=== PATIENT | female | born 1960 | race African-American/Black ===

== ENCOUNTER 2017-02-21 11:52 | Inpatient (IN) ==
[2017-02-21 13:44] LABS: Basophils % 0.1 % (0.0-0.8); Eosinophils % 0.4 % (0.00-10.9); Hematocrit 18.4 VOL% (35.7-47.0); Hemoglobin 6.6 GM/DL (12.0-16.0); Immature Granulocytes % 0.9 %; Immature Granulocytes Absolute 0.07 #; Lymphocytes # 1.5 10*3/uL (1.4-4.0); Lymphocytes % 19.4 % (21.3-54.2); Mean Corpuscular HGB Conc 35.9 GM/DL (32-36); Mean Corpuscular Hemoglobin 46 PG (27-34); Mean Corpuscular Volume 126.9 FL (87-102); Monocytes # 0.3 10*3/uL (0.11-0.8); Monocytes % 4.5 % (1.7-12.7); Neutrophils # 5.7 10*3/uL (1.4-7.4); Neutrophils % 74.7 % (38.7-73.9); Platelet Count 279 T/CUMM (130-400); Red Blood Count 1.45 MC/CUMM (3.8-5.5); Red Cell Distribution Width 14.4 % (9.3-17.3); White Blood Count 7.6 T/CUMM (4-12)
--- NOTE | 2017-02-21 13:47 | EKG Report ---
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
[2017-02-21 13:53] LABS: Alanine Aminotransferase 16 U/L (13-56); Albumin 3.8 G/DL (3.4-5.0); Alkaline Phosphatase 80 U/L (45-117); Aspartate Amino Transferase 12 U/L (0-37); Bilirubin,Total < 0.39 MG/DL (0.2-1.0); Blood Urea Nitrogen 18 MG/DL (7-18); Calcium 8.6 MG/DL (8.5-10.1); Glucose 102 MG/DL (74-106); Osmolality,Calculated 280.4 MOS/KG (273-304); Potassium 4.2 MMOL/L (3.5-5.1); Sodium 140 MMOL/L (136-145); Total Protein 7.4 G/DL (6.4-8.3)
[2017-02-21] MEDS ORDERED: SODIUM CHLORIDE 0.9% 250 ML IV PRN ×3 (13:57→23:40)
--- NOTE | 2017-02-21 13:58 | XRay Report ---
XR chest 1V portable Indication: Shortness of breath Comparison: Chest x-ray dated July 19, 2016 Technique: Single frontal view of the chest. Findings: Continued cardiomegaly. Chronic change of the lungs without focal consolidation, pleural effusion, or pneumothorax. Visualized osseous and surrounding soft tissue structures appear grossly unchanged. IMPRESSION: Continued cardiomegaly without hui pulmonary edema. PROCEDURE INTERPRETED AT [facility] DEPARTMENT OF RADIOLOGY Final Report Signed by: Dr Augustine Madrigal
--- NOTE | 2017-02-21 14:09 | Ultrasound Report ---
US venous doppler LE LT Indication: Left lower extremity pain and swelling. Comparison: None. Technique: Using transcutaneous probe, color Doppler, spectral Doppler, and grayscale images prior to and following compression were obtained of the left lower extremity. Ultrasound images were captured and stored. Interrogated venous structures include the left common femoral vein, superficial femoral vein (proximal, mid, and distal), and popliteal vein. Findings: Thrombus is demonstrated within the proximal superficial femoral vein. This thrombus propagates caudally into the popliteal vein. Within the superficial femoral vein, this is to been occluding thrombus. Nonoccluding thrombus is present within the proximal popliteal vein. Color flow as well as spectral flow are present within the interrogated venous segments. Impression: 1. Occluding thrombus is noted throughout the right superficial femoral vein with nonocclusive thrombus noted within the proximal popliteal vein. Critical results were communicated to Dr. Land at 1400 hours, date of exam. 02/21/2017 2:05 PM PROCEDURE INTERPRETED AT [facility] DEPARTMENT OF RADIOLOGY Final Report Signed by: Dr. Carson Sterling
--- NOTE | 2017-02-21 14:12 | Emergency Department Note ---
Mike Al Hilary, am scribing for, and in the presence of, Alli Land MD 13:32. Emery Al Phillip K, MD, personally performed the services described in this documentation, ascribed by Barbra Mckeon in my presence, and it is both accurate and complete 412 . Arrival - Arrival Chief Complaint: Non-Specific Stated Complaint: sent by [facility] about lab results ED Nursing Triage Note: PT WAS CALLED AT HOME BY [facility] IN [place] TO BE EVALUATED FOR "LOW BLOOD COUNTS." PT C/O WEAKNESS TO LEGS. PT STATES STOOL IS DARK BUT HAS NOT NOTICED BLOOD IN STOOL. Mode of Arrival: Ambulatory Limitations: No Limitations Source: Patient, RN Notes Reviewed - History of Present Illness HPI Narrative: Pt is a 56 y/o female presenting to the ED with c/o weakness in her legs which onset a few days ago. Pt was called at home by arthritis clinic in [place] to be evaluated for "low blood counts". Pt states she has been anemic before and received blood in Jun 2016. She confirms weakness, black stool, SOB, abdominal pain (left side), but denies chest pain or fever. Pt has a PMHx of HTN , Seizures, Rheumatoid arthritis, thyroid disorder. No other complaints or problems stated in the ED. She also notes left leg feels like something is "running around in her leg". Onset (ago): day(s) Consistency: constant Severity: mild Severity scale (1-10): 1 Allergies/Adverse Reactions: Allergies Allergy/AdvReac Type Severity Reaction Status Date / Time Penicillins Allergy Intermediate RASH Verified 02/21/17 12:00 Home Medications: Home Medications Medication Instructions Recorded Confirmed Type Aspirin [Ecotrin] 81 mg PO DAILY 07/09/16 07/18/16 History Brexpiprazole [Rexulti] 1 mg PO DAILY 07/09/16 07/18/16 History Escitalopram [Lexapro] 20 mg PO DAILY 07/09/16 07/18/16 History NIFEdipine XL TAB [Procardia Xl] 60 mg PO DAILY 07/09/16 07/18/16 History Potassium Chloride [Klor-Con 10] 10 meq PO DAILY 07/09/16 07/18/16 History Topiramate 100 mg DAILY 07/09/16 07/18/16 History carBAMazepine [Carbatrol] 200 mg PO BID 07/09/16 07/18/16 History traZODone [Desyrel] 50 mg PO BEDTIME 07/09/16 07/18/16 History Albuterol Inhaler [Proventil 2 puff INH Q4H PRN #1 inhaler 07/18/16 Rx Inhaler] Levofloxacin Tab [Levaquin Tab] 750 mg PO DAILY #5 tablet 07/18/16 Rx Review of System - Review of System 12 point system: reviewed and no additional remarkable complaints except as stated - Review of System Constitutional: Present: weakness. Absent: fever Respiratory: Present: respiratory distress Cardiovascular: Absent: chest pain Gastrointestinal: Present: abdominal pain, melena Musculoskeletal: Present: leg pain (left leg) Neurological: Present: weakness Medical,Surgical,& Family Hx - Medical History Cardio: History of: Hypertension Psychological: History of: Anxiety Disorders Neurology: History of: Seizures Endocrine: History of: Thyroid Disorder Rheumatology: History of;: Rheumatoid Arthritis - Family History Family History: Reports;: Family Hypertension, Family Stroke - Social History Smoking Status: Never smoker Frequency of Alcohol Use: None Type of Drug Use: None Exam Vital Signs: Vital Signs Temperature 98.0 F 02/21/17 13:24 Pulse Rate 80 02/21/17 13:24 Respiratory Rate 20 02/21/17 13:24 Blood Pressure 183/110 02/21/17 13:24 O2 Sat by Pulse Oximetry 100 02/21/17 13:19 - General General appearance: alert, in no apparent distress - Head Head exam: Present: atraumatic, normocephalic - Eye Eye exam: Present: normal appearance, PERRL, EOMI - ENT ENT exam: Present: mucous membranes moist, TM's normal bilaterally. Absent: mucous membranes dry - Neck Neck exam: Present: full ROM, trachea midline. Absent: tenderness - Chest Chest inspection: Present: symmetric chest wall rise. Absent: tenderness - Respiratory Respiratory exam: Present: normal lung sounds bilaterally. Absent: respiratory distress - Cardiovascular Cardiovascular exam: Present: regular rate, normal rhythm, normal heart sounds. Absent: murmur, rubs, gallop - Abdominal Exam Abdominal exam: Present: soft, tenderness (generalized to direct palpation), normal bowel sounds. Absent: distention - Rectal Exam Rectal exam: Present: heme (+) stool (Slight) - Extremities Exam Extremities exam: Present: full ROM. Absent: tenderness (left leg is sore), pedal edema - Back Exam Back exam: Present: full ROM. Absent: tenderness - Neurological Exam Neurological exam: Present: alert, oriented X3, CN II-XII intact. Absent: motor sensory deficit - Psychiatric Psychiatric exam: Present: normal affect, normal mood - Skin Skin exam: Present: warm, dry, intact, normal color. Absent: rash Results - Labs CBC & BMP: 02/21/17 13:07 02/21/17 13:07 Lab Results: I have reviewed the patients labs Labs: Laboratory Tests 02/21/17 02/21/17 13:07 13:07 WBC 7.6 RBC 1.45 L Hgb 6.6 L Hct 18.4 L MCV 126.9 H MCH 46 H Plt Count 279 Neut % (Auto) 74.7 H Lymph % (Auto) 19.4 L Sodium 140 Potassium 4.2 Chloride 109 H Carbon Dioxide 25 Creatinine 1.70 H Total Protein 7.4 Globulin 3.6 H Albumin/Globulin Ratio 1.0 L - EKG EKG results: interpreted by [facility], sinus rhythm (Nonspecific ST-T changes) - Diagnostic Findings Procedure: Chest x-ray: report reviewed by me (Continued cardiomegaly without hui pulmonary edema. ), Ultrasound: report reviewed by me (Left leg DVT from the superficial femoral down to the popliteal.) Disposition Clinical Impression: Anemia, Heme positive stool, Left leg DVT, Chronic renal failure Case discussed with: patient Disposition: Still a Patient Condition: Guarded Additional Instructions: Admit to the hospitalist.
[2017-02-21 14:57] LABS: Giant Platelets Few; Hypochromasia 1+; Ovalocytes Slight; Platelet Estimate Adequate
--- NOTE | 2017-02-21 17:04 | Hospitalist History & Physical ---
<Yung Mohan - Last Filed: 02/21/17 17:06> Assessment and Plan - Time spent with patient Time spent with patient: Greater than 30 minutes (1) Anemia Status: Acute Assessment and plan: H&H 6 and 18. Patient has been transfused with unit of packed red blood cells in the ER. We will continue this on the floor. We will consult GI for evaluation. Current Visit: Yes (2) Deep vein thrombosis (DVT) of left lower extremity Status: Acute Assessment and plan: Venous Doppler of the left lower extremity shows DVT. Patient is not on any anticoagulation. We will check a VQ scan to evaluate for pulmonary embolism. We will hold off on anticoagulation until after GI has seen the patient. Current Visit: Yes (3) Occult blood in stools Status: Acute Current Visit: Yes (4) Partial epilepsy Status: Acute Assessment and plan: Continue home medications. Current Visit: No (5) HTN (hypertension) Status: Chronic Assessment and plan: Continue home medications. Current Visit: No History of Present Illness Chief complaint: Anemia, GI bleed, DVT History of present illness: Ms. Wyatt is a 56 year old female with a past medical history significant for seizures and hypertension who is seen in the emergency department today with complaints of anemia and DVT having onset 2 weeks ago. Patient was she was seen by her primary care doctor, Dr. Dye, found the patient to be anemic during her last office visit. Patient was told to report to the emergency room as soon as possible on Tuesday, however the patient was out of town at a time and she came in today. The patient reports that she had been experiencing these "knots" in her left calf that were sometimes moving. She tells me that she has been taking a lot of Aleve for the arthritis pain and aspirin for the past few weeks. On admission, the patient was found to be heme occult positive and severely anemic with an H&H of 6 and 18. She confirms headache, lower extremity pain, arthritic pain. She denies blurry vision, chest pain, shortness of breath, nausea vomiting, numbness or tingling. Venous Doppler at the time of admission does confirm a DVT in the left lower extremity. Patient has been transfused with unit of packed red blood cells in the ED. Case been discussed with Dr. Alfred, and the patient will be admitted to the hospital medicine service for further evaluation and treatment. Patient is a full code. Home meds have been reviewed and reconciled. Home Medications Medication Instructions Recorded Confirmed Type Aspirin [Ecotrin] 81 mg PO DAILY 07/09/16 02/21/17 History Brexpiprazole [Rexulti] 1 mg PO DAILY 07/09/16 02/21/17 History Escitalopram [Lexapro] 20 mg PO DAILY 07/09/16 02/21/17 History NIFEdipine XL TAB [Procardia Xl] 60 mg PO DAILY 07/09/16 02/21/17 History Potassium Chloride [Klor-Con 10] 10 meq PO DAILY 07/09/16 02/21/17 History Topiramate 100 mg DAILY 07/09/16 02/21/17 History carBAMazepine [Carbatrol] 200 mg PO BID 07/09/16 02/21/17 History traZODone [Desyrel] 50 mg PO BEDTIME 07/09/16 02/21/17 History Albuterol Inhaler [Proventil 2 puff INH Q4H PRN #1 inhaler 07/18/16 02/21/17 Rx Inhaler] Atorvastatin [Lipitor] 10 mg PO BEDTIME 02/21/17 02/21/17 History Lisinopril 40 mg PO DAILY 02/21/17 02/21/17 History Tizanidine HCl [Tizanidine HCl] 4 mg PO Q8H PRN 02/21/17 02/21/17 History Tramadol HCl [Tramadol Tab] 50 mg PO Q6H PRN 02/21/17 02/21/17 History Allergies Allergy/AdvReac Type Severity Reaction Status Date / Time Penicillins Allergy Intermediate RASH Verified 02/21/17 12:00 Medical,Surgical,& Family Hx - Medical History Cardio: History of: Hypertension Psychological: History of: Anxiety Disorders Neurology: History of: Seizures Endocrine: History of: Thyroid Disorder Rheumatology: History of;: Rheumatoid Arthritis - Family History Family History: Reports;: Family Diabetes, Family Hypertension, Family Stroke - Social History Smoking Status: Never smoker Frequency of Alcohol Use: None Type of Drug Use: None Marital Status: Single Lives With:: Alone Functional capacity: independent ambulation 12 point system: reviewed and no additional remarkable complaints except as stated Exam - Constitutional Vitals: Period Temp Pulse Resp BP Sys/Cabrera Pulse Ox Last 24 Hr 97.3 F-98.4 F 63-80 14-20 135-183/63-110 98-100 Exam: General appearance: Obese, no acute distress - Head Head exam: Present: normocephalic, atraumatic - Eye Eye exam: Present: EOMI. Absent: conjunctival injection, nystagmus Pupils: Present: NGA, normal accommodation - ENT ENT exam: Present: normal exam, normal external ear exam - Neck Neck exam: Present: normal inspection. Absent: lymphadenopathy, tenderness, thyromegaly - Respiratory Respiratory exam: Present: clear to auscultation bilaterally. Absent: rales, rhonchi, wheezes - Cardiovascular Cardiovascular exam: Present: regular rate and rhythm. Absent: carotid bruit, gallop, rubs - GI/Abdominal GI/Abdominal exam: Present: normal bowel sounds. Absent: ascites, distended, mass - Extremities Exam Extremities exam: Present: normal inspection, normal capillary refill. Absent: edema - Back Exam Back exam: Absent: CVA tenderness (L), CVA tenderness (R) - Neurological Exam Neurological exam: Present: alert, oriented X3, CN II-XII intact, reflexes normal - Psychiatric Psychiatric exam: Present: normal affect, normal mood - Skin Skin exam: Present: normal color, warm, dry Results - Labs CBC & BMP: 02/21/17 13:07 02/21/17 13:07 Lab Results: I have reviewed the past 24 hour labs <Adwoa Alfred - Last Filed: 02/22/17 16:52> Assessment and Plan (1) Deep vein thrombosis (DVT) of left lower extremity Status: Acute Current Visit: Yes (2) Acute blood loss anemia Status: Acute Current Visit: Yes (3) HTN (hypertension) Status: Chronic Current Visit: No (4) Partial epilepsy Status: Acute Current Visit: No (5) Chronic renal failure Status: Acute Current Visit: Yes History of Present Illness History of present illness: Ms. Wyatt is a 56 year old female with LE DVT and LGI bleed. 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 Exam - Constitutional Vitals: Period Temp Pulse Resp BP Sys/Cabrrea Pulse Ox Last 24 Hr 97.1 F-98.4 F 59-91 16-22 131-190/66-87 92-100 Results - Labs CBC & BMP: 02/22/17 08:19 02/22/17 08:19
[2017-02-21] MEDS ORDERED: ONDANSETRON 4 MG/2 ML VIAL IV PRN (18:27)
[2017-02-21] MEDS ORDERED: tiZANidine 4 MG TABLET PO PRN (18:27)
[2017-02-21] MEDS ORDERED: traMADol 50 MG TABLET PO PRN (18:27)
[2017-02-21] MEDS ORDERED: MORPHINE 2 MG/1 ML SYRINGE IV PRN (18:27)
[2017-02-21] MEDS ORDERED: ALBUTEROL 2.5 MG/3 ML NEB RESP TX PRN (19:00)
--- NOTE | 2017-02-21 19:08 | Gastrointestinal Consult Note ---
Assessment and Plan (1) Occult blood in stools Status: Acute Assessment and plan: Severe anemia of unclear etiology with occult positive stools history of nonsteroidal use but no upper tract referrable symptoms. Will proceed with EGD to further evaluate for possible peptic ulcer disease. Go ahead and continue with IV PPI treatments. If EGD is negative will need to consider colonoscopy as well she is due for colonoscopy for screening purposes. Risks, benefits and alternatives of EGD and endoscopy were reviewed she is agreeable to proceed in a.m. Current Visit: Yes (2) Deep vein thrombosis (DVT) of left lower extremity Status: Acute Assessment and plan: Discussed with patient's attending physician problematic situation will defer to primary care team to consider the possibility of vena caval filter given her severe anemia occult positive stools. Bedrest and subcutaneous heparin probably the best choice for this evening but even if EGD is negative tomorrow she will be at high risk for colon prep with increased risk of clot dislodgment. The possibility of hypercoagulable state from underlying malignancy will also need to be excluded. Current Visit: Yes History of Present Illness Chief complaint: Weakness History of present illness: Ms. Wyatt is a 56 year old female Admitted with severe anemia she reports generalized weakness and fatigue been going on now for several weeks. 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 She was out of town in [facility]. She presented to the emergency room today where she was noted to be anemic. She also complained of some left leg pain which she has been reportedly complaining about for several weeks was found to have a DVT. She is admitted now we have been consulted for further evaluation of GI bleeding found with occult positive stools. She does take frequent nonsteroidals but she has no dyspeptic or dysphagic symptoms. She has had no weight loss. She has never had a colon looked at. She never has had any prior history of peptic ulcer disease. Home Medications Medication Instructions Recorded Confirmed Type Aspirin [Ecotrin] 81 mg PO DAILY 07/09/16 02/21/17 History Brexpiprazole [Rexulti] 1 mg PO DAILY 07/09/16 02/21/17 History Escitalopram [Lexapro] 20 mg PO DAILY 07/09/16 02/21/17 History NIFEdipine XL TAB [Procardia Xl] 60 mg PO DAILY 07/09/16 02/21/17 History Potassium Chloride [Klor-Con 10] 10 meq PO DAILY 07/09/16 02/21/17 History Topiramate 100 mg DAILY 07/09/16 02/21/17 History carBAMazepine [Carbatrol] 200 mg PO BID 07/09/16 02/21/17 History traZODone [Desyrel] 50 mg PO BEDTIME 07/09/16 02/21/17 History Albuterol Inhaler [Proventil 2 puff INH Q4H PRN #1 inhaler 07/18/16 02/21/17 Rx Inhaler] Atorvastatin [Lipitor] 10 mg PO BEDTIME 02/21/17 02/21/17 History Lisinopril 40 mg PO DAILY 02/21/17 02/21/17 History Tizanidine HCl [Tizanidine HCl] 4 mg PO Q8H PRN 02/21/17 02/21/17 History Tramadol HCl [Tramadol Tab] 50 mg PO Q6H PRN 02/21/17 02/21/17 History Allergies Allergy/AdvReac Type Severity Reaction Status Date / Time Penicillins Allergy Intermediate RASH Verified 02/21/17 12:00 Medical,Surgical,& Family Hx - Medical History Cardio: History of: Hypertension No history of: Aneurysm, Cardiac Dysrhythmia, Cerebrovascular Disease, Congenital Heart Disease, CHF, CAD, RI, Pacemaker, PVD, Valvular Heart Disease, Cardiovascular Problems Psychological: History of: Anxiety Disorders Neurology: History of: Seizures No history of: Brain Aneurysm, Cerebral Hemorrhage, Cerebrovascular Accident , Cerebral Palsy, Dementia, Migraine, Multiple Sclerosis, Parkinson's Disease, Peripheral Neuropathy, TIA, Vertigo, Neurologocal Cancer HEENT: History of: Ear Problem ("cant hear good"), Eye Problem ("difficulty seeing") Endocrine: History of: Thyroid Disorder No history of: Dyslipidemia Rheumatology: History of;: Rheumatoid Arthritis Respiratory: No history of: Asthma, Bronchitis, COPD, Intubation, Obstructive Sleep Apnea , Pulmonary Embolism, Pulmonary Hypertension, Pneumonia, Lung Cancer, Respiratory Problems Hematology: History of: Anemia, Clotting Problems No history of: Bleeding Problems, Sickle Cell Disease, Hematologic Cancer, Blood Disorders - Surgical History Cardiac Surgeries: Patient Denies: Femoral-Popliteal Bypass Graft, Cardiac Catheterization, Cardiac Surgery, Carotid Endarterectomy, Internal Defibrillator, Vascular Access Devices Thoracic Surgeries: Patient denies;: Organ Transplant, Lobectomy Neurologic Surgeries: Patient denies: Brain Aneurysm, Cerebral Hemorrhage, Neurologic Surgery HEENT Surgeries: Patient denies: Carotid Endarterectomy, Eye Surgery, Thyroid Surgery, Tonsilectomy & Adenoidectomy Abdominal Surgeries: Patient denies: Abdominal Surgery, Splenectomy Reproductive Surgeries: Surgical HX of;: Tubal Ligation - Family History Family History: Reports;: Family Diabetes, Family Hypertension, Family Stroke - Social History Smoking Status: Never smoker Frequency of Alcohol Use: None Type of Drug Use: None - Constitutional Constitutional: Present: fatigue. Absent: anorexia, chills, fever(s), frequent falls - EENT Ears: Absent: decreased hearing Nose, mouth and throat: Absent: dysphagia, epistaxis, headache(s) - Cardiovascular Cardiovascular: Absent: chest pain at rest, chest pain with activity, edema - Respiratory Respiratory: Present: dyspnea, dyspnea on exertion. Absent: cough, hemoptysis - Gastrointestinal Gastrointestinal: Present: nausea. Absent: abdominal pain, bloating, change in bowel habits, heartburn, hematemesis, hematochezia, melena, vomiting - Genitourinary Genitourinary: Absent: flank pain, hematuria - Neurological Neurological: Absent: abnormal gait, abnormal speech, behavioral changes - Endocrine Endocrine: Present: fatigue. Absent: polydipsia, polyphagia - Hematologic/Lymphatic Hematologic/Lymphatic: Absent: easy bleeding, easy bruising, lymphadenopathy Exam - Constitutional Vitals: Period Temp Pulse Resp BP Sys/Cabrera Pulse Ox Last 24 Hr 97.3 F-99.3 F 63-82 14-20 135-183/63-110 98-100 General appearance: no acute distress, over weight - Head Head exam: Present: normal inspection, normocephalic, atraumatic - Eye Eye exam: Present: EOMI. Absent: conjunctival injection, scleral icterus Pupils: Present: NGA. Absent: dilated - ENT ENT exam: Present: normal oropharynx - Neck Neck exam: Present: normal inspection. Absent: lymphadenopathy, thyromegaly - Respiratory Respiratory exam: Present: clear to auscultation bilaterally. Absent: accessory muscle use, rales - Cardiovascular Cardiovascular exam: Present: regular rate and rhythm. Absent: systolic murmur - GI/Abdominal GI/Abdominal exam: Present: soft. Absent: ascites, distended, organomegaly, tenderness, rebound - Extremities Exam Extremities exam: Absent: edema - Neurological Exam Neurological exam: Present: alert, oriented X3 - Psychiatric Psychiatric exam: Present: normal affect, normal mood - Skin Skin exam: Present: warm Results - Labs CBC & BMP: 02/21/17 13:07 02/21/17 13:07 Lab Results: I have reviewed the past 24 hour labs Quality Measures - VTE Contraindication to Pharmacological VTE Prophylaxis: Active Bleeding
[2017-02-21] MEDS ORDERED: ENOXAPARIN 100 MG/ML SYRINGE SUBCUT ONE (20:00)
[2017-02-21 21:24] LABS: Risk Ratio 3.17; VLDL CHOLESTEROL 29.6 MG/DL
[2017-02-21] MEDS: traZODone 50 MG TABLET PO SCH (21:24)
[2017-02-21] MEDS: carBAMazepine 200 MG TABLET PO SCH (21:24)
[2017-02-21] MEDS: ATORVASTATIN 10 MG TABLET PO SCH (21:24)
[2017-02-21] MEDS: PANTOPRAZOLE 40 MG VIAL IV SCH (21:24)
[2017-02-21] MEDS: SODIUM CHLORIDE 0.9% 1,000 ML IV SCH (22:08)
[2017-02-21 23:34] LABS: Hematocrit 23.4 VOL% (35.7-47.0)
[2017-02-21 23:37] LABS: Hemoglobin 8.4 GM/DL (12.0-16.0)
[2017-02-22 00:10] LABS: Apearance,Urine CLEAR (Clear); Bacteria,Urine Many /HPF (Few); Bilirubin,Urine Negative (Negative); Blood, Urine Negative (Negative); Glucose,Urine (UA) Negative (Negative); Ketones,Urine Negative (Negative); Nitrite,Urine Negative (Negative); Protein,Urine Negative; RBC,Urine 1 /HPF (0-4); Renal Epithelial Cells,Urine Occasional /HPF (<1); Squamous Epithelial Cell,Urine Occasional /HPF (0-10); Urine Color Yellow (Yellow); Urine Specific Gravity 1.009 (1.001-1.035); Urine Urobilinogen < 2.0 EU/DL (0.2-1.0); WBC,Urine 4 /HPF (0-6)
[2017-02-22] MEDS: SODIUM CHLORIDE 0.9% 1,000 ML IV SCH ×2 (01:10→11:26)
[2017-02-22 08:28] LABS: Basophils % 0.1 % (0.0-0.8); Eosinophils % 0.4 % (0.00-10.9); Hematocrit 32.1 VOL% (35.7-47.0); Hemoglobin 11.7 GM/DL (12.0-16.0); Immature Granulocytes % 0.6 %; Immature Granulocytes Absolute 0.05 #; Lymphocytes # 1.5 10*3/uL (1.4-4.0); Lymphocytes % 17.7 % (21.3-54.2); Mean Corpuscular HGB Conc 36.4 GM/DL (32-36); Mean Corpuscular Hemoglobin 37 PG (27-34); Mean Corpuscular Volume 100.6 FL (87-102); Mean Platelet Volume 10.6 FL (9.6-12.0); Monocytes # 0.3 10*3/uL (0.11-0.8); Monocytes % 4.1 % (1.7-12.7); Neutrophils # 6.4 10*3/uL (1.4-7.4); Neutrophils % 77.1 % (38.7-73.9); Platelet Count 241 T/CUMM (130-400); Red Blood Count 3.19 MC/CUMM (3.8-5.5); White Blood Count 8.3 T/CUMM (4-12)
[2017-02-22 08:29] LABS: Hematocrit 32.5 VOL% (35.7-47.0); Hemoglobin 11.7 GM/DL (12.0-16.0)
[2017-02-22 08:40] LABS: PT Patient Result 10.7 SECS
[2017-02-22 09:04] LABS: Albumin 3.8 G/DL (3.4-5.0); Bilirubin,Total 0.6 MG/DL (0.2-1.0); Calcium 8.9 MG/DL (8.5-10.1); Osmolality,Calculated 282.1 MOS/KG (273-304); Potassium 4.6 MMOL/L (3.5-5.1); Total Protein 7.3 G/DL (6.4-8.3)
--- NOTE | 2017-02-22 09:26 | Nuclear Medicine Report ---
Lung ventilation and perfusion imaging. Indication: DVT. Following the aerosolized administration of 40 mCi technetium 99m DTPA, imaging was performed over the lung sawyer in the anterior, CYMRAES and PIZANO positions. Following the intravenous administration of 5 mCi technetium 99m MAA, imaging was performed over the lung sawyer and the same standard images. There are no ventilation or perfusion defects seen. Impression: Normal study. PROCEDURE INTERPRETED AT [facility] DEPARTMENT OF RADIOLOGY Final Report Signed by: Dr. Frannie Shepherd
[2017-02-22 09:56] LABS: Macrocytosis 2+; Polychromasia Slight
[2017-02-22 09:57] LABS: Hypochromasia 1+; Target Cells Slight
[2017-02-22] MEDS ORDERED: DIAZEPAM 5 MG TABLET PO ONE (10:34)
--- NOTE | 2017-02-22 10:34 | IR History and Physical Update ---
IR Pre-Procedure - History and Physical H&P was reviewed, the patient examined and there: are no changes in the patients condition since last H&P was completed. Reason for procedure:: 56 yo F w/ LLE DVT. Anticoagulation contraindicated by seizure disorder, heme positive stools and anemia of unknown etiology. Needs IVC filter, likely for life. - Dictation Physical: refer to H&P completed by admitting physician - Physical Exam Vital Signs: Last Vital Signs Temp 97.3 F L 02/22/17 08:23 Pulse 67 02/22/17 08:26 Resp 20 02/22/17 09:50 BP 157/83 02/22/17 08:23 Pulse Ox 98 02/22/17 08:23 Mental Status: alert and oriented - Sedation IR anesthesia plan for sedation: minimal ASA Class: II - Risks Risks: Procedures explained. Risks discussed include, but not limited to, the following:[ permanent IVC filter, IVC thrombosis extending into legs] All questions answered. The following alternatives were discussed:[ none] Risks and benefits discussed with: patient Consent obtained from: patient Assessment and Plan - Time spent with patient Time spent with patient: Less than 30 minutes (1) Deep vein thrombosis (DVT) of left lower extremity Status: Acute Assessment and plan: A: DVT, contraindication to anticoag P: IVC filter placement, probably for life Current Visit: Yes
--- NOTE | 2017-02-22 10:51 | Hospitalist Progress Note ---
Assessment and Plan (1) Deep vein thrombosis (DVT) of left lower extremity Status: Acute Assessment and plan: VQ scan- normal study.She is for IVC filter placement due to contraindication to anticoagulation.Lipid panel noted. We will also get tumour markers and hypercoagulability study. Current Visit: Yes (2) Acute blood loss anemia Status: Acute Assessment and plan: with occult blood in stools s/p transfusion of 4units of packed cells. Plan Continue to monitor H/H and transfuse on a prn basis For EGD today, follow GI's recommendations Current Visit: Yes (3) HTN (hypertension) Status: Chronic Assessment and plan: continue with meds Current Visit: No (4) Partial epilepsy Status: Acute Assessment and plan: continue home meds, hold tramadol because this can reduce seizure threshold Current Visit: No (5) Chronic renal failure Status: Acute Assessment and plan: avoid Nephrotoxics BMP in am Current Visit: Yes Hospitalist: Subjective Interval history: Patient went for an IVC filter placement this am.She is also going for and EGD as well. She received a total of 4units of packed cells overnight. VQ scan was normal. Exam - Constitutional Vitals: Period Temp Pulse Resp BP Sys/Cabrera Pulse Ox Last 24 Hr 97.1 F-99.3 F 63-91 14-20 131-183/63-110 92-100 General appearance: no acute distress - Head Head exam: Present: normal inspection - Respiratory Respiratory exam: Present: clear to auscultation bilaterally - Cardiovascular Cardiovascular exam: Present: regular rate and rhythm - GI/Abdominal GI/Abdominal exam: Present: normal bowel sounds - Extremities Exam Extremities exam: Present: normal inspection - Neurological Exam Neurological exam: Present: alert, oriented X3 Results - Labs CBC & BMP: 02/22/17 08:19 02/22/17 08:19 Lab Results: I have reviewed the past 24 hour labs Quality Measures - VTE Contraindication to Pharmacological VTE Prophylaxis: Active Bleeding
[2017-02-22] MEDS ORDERED: SODIUM CHLORIDE 0.45% 1,000 ML IV SCH (11:00)
[2017-02-22] MEDS ORDERED: BISACODYL 5 MG TABLET PO ONE (12:00)
[2017-02-22] MEDS ORDERED: LIDOCAINE 1% 5 ML VIAL ONE (12:23)
[2017-02-22] MEDS ORDERED: PROPOFOL 200 MG/20 ML VIAL IV ONE (12:23)
--- NOTE | 2017-02-22 12:26 | History and Physical Update ---
History and Physical Update - Physical Exam Mental Status: alert and oriented Heart: regular rate and rhythm Lung: clear to auscultation Abdomen: within normal limits Vitals: within normal limits
--- NOTE | 2017-02-22 12:37 | Operative Note ---
Date of procedure: 02/22/17 Pre-op diagnosis: Severe anemia with coffee-ground emesis Procedure: EGD 56-year-old female admitted with severe anemia coffee-ground emesis occult positive stools with left leg DVT now for EGD to further evaluate. Informed symptoms obtained patient She was sedated with MAC anesthesia per anesthesia protocol. Placed left lateral decubitus position the Olympus flexible video upper endoscope was inserted in the oral cavity under direct vision the esophagus intubated. Findings: Esophagus-normal proximal mid esophageal mucosa distal esophagus with no significant hiatal hernia no stricture no esophagitis or varices identified. Stomach-normal insufflation there is a minute superficial ulcer in the antrum of the stomach no visible vessel no active bleeding. Remaining stomach is normal to direct retroflexed views of the body fundus cardia and antrum the stomach. Pylorus-normal Duodenum-normal for the bulb and duodenum to the third portion of the duodenum. The procedure terminated placed our procedure well she is discharged recovery in good condition. Postop diagnosis: 1. Superficial antral gastric ulcer-continue PPI treatment. 2. Plan colonoscopy in a.m. to evaluate her severe anemia that is unlikely related to this very small ulcer. Anesthesia: MAC Surgeon / Physician: Alexis White Estimated blood loss: none Specimens: none sent Condition: stable Disposition: post procedure unit Results - Labs CBC & BMP: 02/22/17 08:19 02/22/17 08:19 Discharge Plan - Discharge Medications No Action Albuterol Inhaler [Proventil Inhaler] 2 puff INH Q4H PRN #1 inhaler PRN Reason: Shortness Of Breath/Wheezing Atorvastatin [Lipitor] 10 mg PO BEDTIME Tramadol HCl [Tramadol Tab] 50 mg PO Q6H PRN PRN Reason: Pain Tizanidine HCl [Tizanidine HCl] 4 mg PO Q8H PRN PRN Reason: Muscle Spasm traZODone [Desyrel] 50 mg PO BEDTIME Escitalopram [Lexapro] 20 mg PO DAILY Potassium Chloride [Klor-Con 10] 10 meq PO DAILY Brexpiprazole [Rexulti] 1 mg PO DAILY Aspirin [Ecotrin] 81 mg PO DAILY NIFEdipine XL TAB [Procardia Xl] 60 mg PO DAILY Topiramate 100 mg DAILY carBAMazepine [Carbatrol] 200 mg PO BID Lisinopril 40 mg PO DAILY - Follow Up or Referral - Forms/Instructions
--- NOTE | 2017-02-22 12:52 | Anesthesia Post-Op ---
Anesthesia Post OP - Post Ansesthetic Evaluation Patient seen in post op: Yes Resp: within normal limits CV: within normal limits Mental: within normal limits Temp: within normal limits Bsyb-Pe-[id number]: within normal limits Nausea and Vomiting: within normal limits Pain: within normal limits
[2017-02-22 12:59] LABS: AFP Tumor 5.2 NG/ML (0-8); Cancer Antigen 19-9 6.2 U/ML (0-37); Carcinoembryonic Antigen < 0.5 NG/ML (0.0-5.0)
--- NOTE | 2017-02-22 14:08 | Post Interventional Procedure ---
Pre-op diagnosis: DVT Post-op diagnosis: same Procedure: IVC filter Contrast: Omni 350, 15cc Radiologist: Jose Womack Anesthesia: local Specimens: none sent Estimated blood loss: none Complications: none Condition: stable Assessment and Plan (1) Deep vein thrombosis (DVT) of left lower extremity Status: Acute Assessment and plan: A: DVT, contraindication to anticoag P: IVC filter placement, probably for life Current Visit: Yes
--- NOTE | 2017-02-22 14:22 | Interventional Radiology Rpt ---
IR IVC filter placement Indication: Left lower extremity DVT. Contraindication anticoagulation: Intractable seizures, heme positive stools and anemia. IVC FILTER PLACEMENT Description: A formal timeout was performed. Maximum sterile barrier technique was used. The right groin was prepped and draped in a sterile fashion. Sonographic evaluation demonstrates a patent and compressible right common femoral vein. 5 cc 1% lidocaine was infused subcutaneously. Under sonographic guidance, a micropuncture needle was advanced into the target vein. A captured sonographic image documents the position of the needle. The needle was exchanged over a wire for a vascular dilator with the tip in the distal IVC. An inferior venacavogram was performed. Normal anatomy was present. The lowest renal vein inflow was identified. The dilator was exchanged over a wire for a Genevieve IVC filter sheath. The filter was then advanced and deployed such that the apex is at the lowest renal vein inflow. The deployment apparatus was removed and hemostasis achieved with manual compression. Medications: None. Contrast: Omnipaque 350, 15 cc. Fluoroscopy: 0.7 minutes, 18 images stored. Impression: Infrarenal IVC filter placement as described. PROCEDURE INTERPRETED AT [facility] DEPARTMENT OF RADIOLOGY Final Report Signed by: Jose Womack M.D.
[2017-02-22] MEDS: PANTOPRAZOLE 40 MG VIAL IV SCH ×2 (15:01→21:46)
[2017-02-22] MEDS: carBAMazepine 200 MG TABLET PO SCH ×2 (15:02→20:44)
[2017-02-22] MEDS: ESCITALOPRAM 10 MG TABLET PO SCH (15:02)
[2017-02-22] MEDS ORDERED: POLYETHYLENE GLYCOL POWDER 255 GM BOTTLE PO ONE (18:00)
[2017-02-22] MEDS: traZODone 50 MG TABLET PO SCH (20:45)
[2017-02-22] MEDS: ATORVASTATIN 10 MG TABLET PO SCH (20:45)
[2017-02-23] MEDS: SODIUM CHLORIDE 0.9% 1,000 ML IV SCH ×3 (01:08→20:35)
[2017-02-23] MEDS ORDERED: MAGNESIUM CITRATE 300 ML BOTTLE PO ONE (05:11)
[2017-02-23 07:53] LABS: Hematocrit 34.2 VOL% (35.7-47.0); Hemoglobin 11.7 GM/DL (12.0-16.0)
[2017-02-23 08:04] LABS: Basophils % 0.1 % (0.0-0.8); Eosinophils % 0.3 % (0.00-10.9); Hematocrit 33.3 VOL% (35.7-47.0); Hemoglobin 11.8 GM/DL (12.0-16.0); Immature Granulocytes % 0.9 %; Immature Granulocytes Absolute 0.08 #; Lymphocytes # 1.3 10*3/uL (1.4-4.0); Lymphocytes % 13.7 % (21.3-54.2); Mean Corpuscular HGB Conc 35.4 GM/DL (32-36); Mean Corpuscular Hemoglobin 37 PG (27-34); Mean Corpuscular Volume 104.4 FL (87-102); Mean Platelet Volume 10.5 FL (9.6-12.0); Monocytes # 0.4 10*3/uL (0.11-0.8); Neutrophils # 7.6 10*3/uL (1.4-7.4); PT Patient Result 10.5 SECS; Platelet Count 244 T/CUMM (130-400); Red Blood Count 3.19 MC/CUMM (3.8-5.5); Red Cell Distribution Width 25.3 % (9.3-17.3); White Blood Count 9.3 T/CUMM (4-12)
[2017-02-23 08:17] LABS: Hypochromasia 1+; Ovalocytes Slight; Platelet Estimate Adequate
[2017-02-23 08:18] LABS: Macrocytosis Slight
[2017-02-23] MEDS ORDERED: LIDOCAINE 2% 5 ML VIAL ONE (10:51)
[2017-02-23] MEDS ORDERED: PROPOFOL 200 MG/20 ML VIAL IV ONE (10:51)
--- NOTE | 2017-02-23 11:22 | Hospitalist Progress Note ---
Assessment and Plan (1) Deep vein thrombosis (DVT) of left lower extremity Status: Acute Assessment and plan: VQ scan- normal study.She had an IVC filter placed yesterday due to contraindication to anticoagulation. Lipid panel noted. Tumour markers- noted . We will follow hypercoagulability study. Current Visit: Yes (2) Acute blood loss anemia Status: Acute Assessment and plan: with occult blood in stools s/p transfusion of 4units of packed cells.H/H is stable. EGD showed a superficial antral gastric ulcer, she is having a colonoscopy today. Plan Continue to monitor H/H and transfuse on a prn basis follow GI's recommendations PPIs Current Visit: Yes (3) HTN (hypertension) Status: Chronic Assessment and plan: continue with meds Current Visit: No (4) Partial epilepsy Status: Acute Assessment and plan: continue home meds, hold tramadol because this can reduce seizure threshold Current Visit: No (5) Chronic renal failure Status: Acute Assessment and plan: avoid Nephrotoxics BMP in am Current Visit: Yes Hospitalist: Subjective Interval history: Patient had an EGD yesterday which showed a superficial antral gastric ulcer. IVC filter was also placed. She will be having a colonoscopy today.H/H has improved. Exam - Constitutional Vitals: Period Temp Pulse Resp BP Sys/Cabrera Pulse Ox Last 24 Hr 97.0 F-98.3 F 59-76 16-22 138-190/65-87 95-100 General appearance: no acute distress - Head Head exam: Present: normal inspection - Respiratory Respiratory exam: Present: clear to auscultation bilaterally - Cardiovascular Cardiovascular exam: Present: regular rate and rhythm - GI/Abdominal GI/Abdominal exam: Present: normal bowel sounds - Extremities Exam Extremities exam: Present: normal inspection - Neurological Exam Neurological exam: Present: alert, oriented X3 Results - Labs CBC & BMP: 02/23/17 07:36 02/22/17 08:19 Lab Results: I have reviewed the past 24 hour labs Quality Measures - VTE Contraindication to Pharmacological VTE Prophylaxis: Active Bleeding
--- NOTE | 2017-02-23 11:25 | Operative Note ---
Date of procedure: 02/23/17 Pre-op diagnosis: Severe anemia and occult positive stools Procedure: Colonoscopy with polypectomy 56-year-old female with severe anemia occult positive stools now for colonoscopy. Informed consent was obtained the patient She was sedated with MAC anesthesia per anesthesia protocol. Patient placed left lateral decubitus position digital exam reveals external hemorrhoids but no masses. The Olympus flexible video colonoscope Ser[place] canal demonstrate vision level cecum identify obvious ago valve appendiceal orifice. Withdrawal time 9 minutes Prep fair Findings: Cecum-identified the ileocecal valve appendiceal orifice no mucosal abnormality seen. Terminal ileum-normal Ascending colon-normal Transverse colon-normal Descending colon-6 mm polyp hot biopsy fulgurated otherwise normal. Sigmoid colon-mild diverticulosis otherwise normal Rectum-normal to direct retroflexed views other than 2+ hemorrhoids without bleeding. The procedure was terminated placed our procedure well discharge recovery in good condition. Postop diagnosis: 1. Colon gasvhe-dykyio-mo polyp path 2. Diverticulosis-maintain adequate fiber and fluid intake 3. Proceed with small bowel follow-through to evaluate her severe anemia and occult positive stools Anesthesia: MAC Surgeon / Physician: Alexis White Estimated blood loss: none Specimens: other (Descending colon polyp) Condition: stable Disposition: post procedure unit Results - Labs CBC & BMP: 02/23/17 07:36 02/22/17 08:19 Discharge Plan - Discharge Medications No Action Albuterol Inhaler [Proventil Inhaler] 2 puff INH Q4H PRN #1 inhaler PRN Reason: Shortness Of Breath/Wheezing Atorvastatin [Lipitor] 10 mg PO BEDTIME Tramadol HCl [Tramadol Tab] 50 mg PO Q6H PRN PRN Reason: Pain Tizanidine HCl [Tizanidine HCl] 4 mg PO Q8H PRN PRN Reason: Muscle Spasm traZODone [Desyrel] 50 mg PO BEDTIME Escitalopram [Lexapro] 20 mg PO DAILY Potassium Chloride [Klor-Con 10] 10 meq PO DAILY Brexpiprazole [Rexulti] 1 mg PO DAILY Aspirin [Ecotrin] 81 mg PO DAILY NIFEdipine XL TAB [Procardia Xl] 60 mg PO DAILY Topiramate 100 mg DAILY carBAMazepine [Carbatrol] 200 mg PO BID Lisinopril 40 mg PO DAILY - Follow Up or Referral - Forms/Instructions
--- NOTE | 2017-02-23 11:39 | Anesthesia Post-Op ---
Anesthesia Post OP - Post Ansesthetic Evaluation Patient seen in post op: Yes Resp: within normal limits CV: within normal limits Mental: within normal limits Temp: within normal limits [id number]: within normal limits Nausea and Vomiting: within normal limits Pain: within normal limits
[2017-02-23] MEDS: ESCITALOPRAM 10 MG TABLET PO SCH (13:45)
[2017-02-23] MEDS: carBAMazepine 200 MG TABLET PO SCH ×2 (13:46→20:56)
[2017-02-23] MEDS: PANTOPRAZOLE 40 MG VIAL IV SCH ×2 (13:47→20:30)
[2017-02-23] MEDS: traZODone 50 MG TABLET PO SCH (20:56)
[2017-02-23] MEDS: ATORVASTATIN 10 MG TABLET PO SCH (20:57)
[2017-02-24 07:14] LABS: Basophils % 0.1 % (0.0-0.8); Eosinophils # 0.1 10*3/uL (0.0-0.87); Eosinophils % 0.8 % (0.00-10.9); Hematocrit 29.8 VOL% (35.7-47.0); Hemoglobin 10.5 GM/DL (12.0-16.0); Immature Granulocytes % 0.4 %; Immature Granulocytes Absolute 0.03 #; Lymphocytes # 1.2 10*3/uL (1.4-4.0); Lymphocytes % 15.1 % (21.3-54.2); Mean Corpuscular HGB Conc 35.2 GM/DL (32-36); Mean Corpuscular Hemoglobin 37 PG (27-34); Mean Corpuscular Volume 105.3 FL (87-102); Mean Platelet Volume 10.9 FL (9.6-12.0); Monocytes # 0.3 10*3/uL (0.11-0.8); Monocytes % 3.7 % (1.7-12.7); Neutrophils # 6.4 10*3/uL (1.4-7.4); Neutrophils % 79.9 % (38.7-73.9); Platelet Count 202 T/CUMM (130-400); Red Blood Count 2.83 MC/CUMM (3.8-5.5); White Blood Count 7.9 T/CUMM (4-12)
[2017-02-24 07:28] LABS: PT Patient Result 10.4 SECS
[2017-02-24 07:44] LABS: Calcium 8.2 MG/DL (8.5-10.1); Osmolality,Calculated 279.3 MOS/KG (273-304); Potassium 4.4 MMOL/L (3.5-5.1)
[2017-02-24 08:23] LABS: Lymphocytes 13 % (20-55); Macrocytosis 2+; Platelet Estimate Adequate; Polychromasia Slight; Segmented Neutrophils 84 % (50-85); Total Cells Counted 100
[2017-02-24] MEDS ORDERED: LEVOFLOXACIN INJ 500 MG in PREMIX 1 EACH IV SCH (09:30)
[2017-02-24 10:30] LABS: Cancer Antigen 125 5 U/mL (<46)
[2017-02-24 11:10] LABS: Thyroglob. AB < 1.8 IU/mL (<4.0)
[2017-02-24 11:26] LABS: Protein C Activity Plasma 105 % (70 - 150)
--- NOTE | 2017-02-24 12:42 | Pathology Report from [facility] ---
[facility] ACCESSION # : [id number] PATIENT NAME : Josselyn Wyatt ORDERING DR : VERN MANZANO MD CLINICAL HX: Anemia - Positive stools - Constipation POST-OP DX: Colon polyp SPECIMEN INFO: Descending colon polyp GROSS DESCRIPTION: The specimen is received in formalin labeled with the patients name and consists of two may tissue fragments measuring 0.4 x 0.2 cm collectively. Submitted in one cassette. DIAGNOSIS FOR JOSSELYN WYATT: DESCENDING COLON BIOPSIES: Tubular adenoma. COLLECTED DATE: 02/23/2017 [facility] REPORT DATE: 02/24/2017 ELECTRONICALLY SIGNED BY: Roberth Zamudio M.D. 02/24/2017 - 9:21:35 [facility]
[2017-02-24] MEDS: carBAMazepine 200 MG TABLET PO SCH ×2 (13:01→20:49)
[2017-02-24] MEDS: ESCITALOPRAM 10 MG TABLET PO SCH (13:01)
[2017-02-24] MEDS: PANTOPRAZOLE 40 MG VIAL IV SCH ×2 (13:02→21:46)
--- NOTE | 2017-02-24 13:44 | Hospitalist Progress Note ---
Assessment and Plan (1) Deep vein thrombosis (DVT) of left lower extremity Status: Acute Assessment and plan: VQ scan- normal study.She had an IVC filter placed yesterday due to contraindication to anticoagulation. Lipid panel noted. Tumour markers- noted .Throglobulin Tumour marker is elevated. Plan Thyroid scan Current Visit: Yes (2) Acute blood loss anemia Status: Acute Assessment and plan: with occult blood in stools s/p transfusion of 4units of packed cells.H/H is stable. EGD showed a superficial antral gastric ulcer,colonoscopy done yesterday showed colon polyps and diverticulosis.She has gone for a small bowel follow-through today.H/ H is stable Plan Continue to monitor H/H and transfuse on a prn basis follow GI's recommendations PPIs Current Visit: Yes (3) HTN (hypertension) Status: Chronic Assessment and plan: add norvasc 5mg, follow response Current Visit: No (4) Partial epilepsy Status: Acute Assessment and plan: continue home meds, continue to hold tramadol because this can reduce seizure threshold Current Visit: No (5) Chronic renal failure Status: Acute Assessment and plan: avoid Nephrotoxics BMP in am Current Visit: Yes (6) E. coli UTI Status: Acute Assessment and plan: UC grew E.Coli resistant to Levaquin and Cipro, patient is allergic to penicillins. plan Start IV Tobramycin Current Visit: Yes Hospitalist: Subjective Interval history: Patient had a colonoscopy yesterday and it showed colon polyps and diverticulosis.She has gone for a small bowel follow-through today.H/H is stable. UC grew E.Coli resistant to Levaquin and Cipro, patient is allergic to penicillins.Throglobulin tumor marker is elevated. Exam - Constitutional Vitals: Period Temp Pulse Resp BP Sys/Cabrera Pulse Ox Last 24 Hr 97.0 F-97.7 F 66-82 16-21 139-190/65-82 95-98 General appearance: no acute distress - Head Head exam: Present: normal inspection - Eye Eye exam: Present: EOMI - Respiratory Respiratory exam: Present: clear to auscultation bilaterally - Cardiovascular Cardiovascular exam: Present: regular rate and rhythm - GI/Abdominal GI/Abdominal exam: Present: normal bowel sounds - Back Exam Back exam: Present: normal inspection - Neurological Exam Neurological exam: Present: alert, oriented X3 Results - Labs CBC & BMP: 02/24/17 06:18 02/24/17 06:18 Lab Results: I have reviewed the past 24 hour labs Quality Measures - VTE Contraindication to Pharmacological VTE Prophylaxis: Active Bleeding
[2017-02-24] MEDS ORDERED: TOBRAMYCIN INJ 80 MG in SODIUM CHLORIDE 0.9% 100 ML IV SCH (14:00)
[2017-02-24 14:01] LABS: Protein S Activity Plasma 119 % (65 - 160)
--- NOTE | 2017-02-24 14:03 | Gastrointestinal Progress Note ---
<Kimberly Plata - Last Filed: 02/24/17 14:01> Assessment and Plan (1) Anemia Status: Acute Assessment and plan: 02/24-HH holding at 05/22, no overt bleeding. Small bowel xray results pending at this time. Plan and addendum to follow by Dr White. Current Visit: Yes Gastroenterology - PN: Subj Interval history: CC: Anemia Pt is seen, awake and alert, having returned from small bowel follow through not long ago. Denies any abdominal pain, nausea or vomiting. Tolerating her diet at this time. H/H stable at 05/22. Xray results are still pending. Pathology report on polyp returned as tubular adenoma. Abdomen is soft, nontender. ROS: Denies SOB or chest pain Exam (Progress Note) - Constitutional Vitals: Period Temp Pulse Resp BP Sys/Cabrera Pulse Ox Last 24 Hr 97.0 F-97.7 F 66-82 16-21 139-190/65-82 95-98 General appearance: normal weight, no acute distress - Head Head exam: Present: normal inspection, normocephalic - Eye Eye exam: Present: other (lids and conjunctiva unremarkable). Absent: scleral icterus - ENT ENT exam: Present: normal exam, normal oropharynx - Neck Neck exam: Present: normal inspection - Respiratory Respiratory exam: Present: clear to auscultation bilaterally. Absent: rales, rhonchi, wheezes - Cardiovascular Cardiovascular exam: Present: regular rate and rhythm. Absent: diastolic murmur , JVD, systolic murmur - GI/Abdominal GI/Abdominal exam: Present: normal bowel sounds, soft. Absent: ascites, distended, mass, organomegaly, tenderness - Extremities Exam Extremities exam: Present: normal inspection, full ROM - Back Exam Back exam: Present: normal inspection - Neurological Exam Neurological exam: Present: alert, oriented X3 - Psychiatric Psychiatric exam: Present: normal affect, normal mood - Skin Skin exam: Present: normal color, warm, dry Results - Labs CBC & BMP: 02/24/17 06:18 02/24/17 06:18 Lab Results: I have reviewed the past 24 hour labs <Alexis White - Last Filed: 02/24/17 18:24> Assessment and Plan (1) Occult blood in stools Status: Acute Current Visit: Yes (2) Deep vein thrombosis (DVT) of left lower extremity Status: Acute Current Visit: Yes Exam (Progress Note) - Constitutional Vitals: Period Temp Pulse Resp BP Sys/Cabrera Pulse Ox Last 24 Hr 97.0 F-97.7 F 66-82 16-21 139-190/65-89 95-98 Results - Labs CBC & BMP: 02/24/17 06:18 02/24/17 06:18
--- NOTE | 2017-02-24 14:32 | Fluoroscopy Report ---
FL small bowel follow through Indication: Anemia and occult positive stools Comparison: None Technique: Small bowel follow-through was performed after the oral administration of barium. Fluoroscopy time 2 minutes. 25 total images. Findings: There is normal progression of contrast through the stomach, into the small intestine, and into the proximal colon. No grossly abnormal small bowel morphology. No convincing evidence of abnormal mass or contrast leak. IMPRESSION: Unremarkable small bowel follow-through. PROCEDURE INTERPRETED AT [facility] DEPARTMENT OF RADIOLOGY Final Report Signed by: Dr Augustine Madrigal
--- NOTE | 2017-02-24 15:32 | Ultrasound Report ---
US thyroid Indication: Elevated TSH. Comparison: None. Technique: Using transcutaneous probe, routine thyroid ultrasound was performed. Ultrasound images were captured and stored. Findings: The right thyroid lobe measures 4.8 x 2.2 x 3.1 cm. The left thyroid measures 4.6 x 2.2 x 2.5 cm. The isthmus measures 7 to 8 mm. There is diffuse nodular echotexture of the bilateral thyroid lobes. Additionally, the isthmus demonstrates diffuse nodular enlargement. Small subcentimeter focal hypoechoic nodule in the right thyroid lobe was present to small to further characterize. This measures approximately 2 to 3 mm maximum dimension. Color Doppler demonstrates symmetric flow bilaterally within the thyroid gland. Impression: 1. Differential thyroid is favored to reflect multinodular goiter. Small subcentimeter nodule within the right thyroid lobe is nonspecific in appearance and follow-up ultrasound in 6 months is recommended to assess stability. 02/24/2017 3:27 PM PROCEDURE INTERPRETED AT [facility] DEPARTMENT OF RADIOLOGY Final Report Signed by: Dr. Carson Sterling
[2017-02-24] MEDS: SODIUM CHLORIDE 0.9% 1,000 ML IV SCH (15:48)
[2017-02-24] MEDS: amLODIPine 5 MG TABLET PO SCH (15:49)
[2017-02-24] MEDS: ATORVASTATIN 10 MG TABLET PO SCH (20:49)
[2017-02-24] MEDS: traZODone 50 MG TABLET PO SCH (20:49)
[2017-02-25 06:32] LABS: Basophils % 0.1 % (0.0-0.8); Eosinophils % 0.4 % (0.00-10.9); Hematocrit 29.7 VOL% (35.7-47.0); Hemoglobin 10.6 GM/DL (12.0-16.0); Immature Granulocytes % 0.9 %; Immature Granulocytes Absolute 0.07 #; Lymphocytes # 1.3 10*3/uL (1.4-4.0); Lymphocytes % 16.1 % (21.3-54.2); Mean Corpuscular HGB Conc 35.7 GM/DL (32-36); Mean Corpuscular Hemoglobin 37 PG (27-34); Mean Corpuscular Volume 103.5 FL (87-102); Mean Platelet Volume 10.9 FL (9.6-12.0); Monocytes # 0.4 10*3/uL (0.11-0.8); Monocytes % 4.4 % (1.7-12.7); Neutrophils # 6.4 10*3/uL (1.4-7.4); Neutrophils % 78.1 % (38.7-73.9); Platelet Count 195 T/CUMM (130-400); Red Blood Count 2.87 MC/CUMM (3.8-5.5); White Blood Count 8.2 T/CUMM (4-12)
[2017-02-25 06:59] LABS: Burr Cells Slight; Macrocytosis 2+; Polychromasia Slight; Target Cells Slight
[2017-02-25 07:04] LABS: Calcium 8.5 MG/DL (8.5-10.1); Osmolality,Calculated 282.1 MOS/KG (273-304); Potassium 4.5 MMOL/L (3.5-5.1)
[2017-02-25] MEDS: carBAMazepine 200 MG TABLET PO SCH ×2 (09:22→21:39)
[2017-02-25] MEDS: ESCITALOPRAM 10 MG TABLET PO SCH (09:23)
[2017-02-25] MEDS: amLODIPine 5 MG TABLET PO SCH (09:23)
[2017-02-25] MEDS: PANTOPRAZOLE 40 MG VIAL IV SCH ×2 (09:24→22:07)
--- NOTE | 2017-02-25 10:13 | Gastrointestinal Progress Note ---
<Kimberly Plata - Last Filed: 02/25/17 10:11> Assessment and Plan (1) Anemia Status: Acute Assessment and plan: 02/25-H&H 05/22 unchanged. Small bowel follow-through negative. Tolerating diet. No overt bleeding. Plan an addendum to follow Dr. White. 02/24-HH holding at 05/22, no overt bleeding. Small bowel xray results pending at this time. Plan and addendum to follow by Dr White. Current Visit: Yes Gastroenterology - PN: Subj Interval history: CC: Anemia Patient is seen awake and alert with family at bedside. States she had an uneventful night is feeling better except for some mild abdominal discomfort. Her small bowel x-ray on yesterday was negative. Her H&H is holding at 05/22. Abdomen is soft, nontender. she is tolerating her diet well at this time. She states that she is going to remain in the hospital for another day due to her thyroid as well as continued IV antibiotics for her UTI. ROS: Denies shortness of breath or chest pain Exam (Progress Note) - Constitutional Vitals: Period Temp Pulse Resp BP Sys/Cabrera Pulse Ox Last 24 Hr 96.0 F-99.0 F 73-76 16-20 125-190/58-89 94-98 General appearance: normal weight, no acute distress - Head Head exam: Present: normal inspection, normocephalic - Eye Eye exam: Present: other (Lids and conjunctive are unremarkable). Absent: scleral icterus - ENT ENT exam: Present: normal exam, normal oropharynx - Neck Neck exam: Present: normal inspection - Respiratory Respiratory exam: Present: clear to auscultation bilaterally. Absent: rales, rhonchi, wheezes - Cardiovascular Cardiovascular exam: Present: regular rate and rhythm. Absent: diastolic murmur , JVD, systolic murmur - GI/Abdominal GI/Abdominal exam: Present: normal bowel sounds, soft. Absent: ascites, distended, mass, organomegaly, tenderness - Extremities Exam Extremities exam: Present: normal inspection, full ROM - Back Exam Back exam: Present: normal inspection - Neurological Exam Neurological exam: Present: alert, oriented X3 - Psychiatric Psychiatric exam: Present: normal affect, normal mood - Skin Skin exam: Present: normal color, warm, dry Results - Labs CBC & BMP: 02/25/17 05:55 02/25/17 05:55 Lab Results: I have reviewed the past 24 hour labs <Alexis White - Last Filed: 02/25/17 16:19> Assessment and Plan (1) Occult blood in stools Status: Acute Current Visit: Yes (2) Deep vein thrombosis (DVT) of left lower extremity Status: Acute Current Visit: Yes Exam (Progress Note) - Constitutional Vitals: Period Temp Pulse Resp BP Sys/Cabrera Pulse Ox Last 24 Hr 96.0 F-99.0 F 75-77 18-22 125-164/58-80 94-98 Results - Labs CBC & BMP: 02/25/17 05:55 02/25/17 05:55
--- NOTE | 2017-02-25 11:48 | Hospitalist Progress Note ---
Assessment and Plan (1) Deep vein thrombosis (DVT) of left lower extremity Status: Acute Assessment and plan: VQ scan- normal study.She had an IVC filter placed yesterday due to contraindication to anticoagulation. Lipid panel noted. Tumour markers- noted .Throglobulin Tumour marker is elevated.Thyroid scan showed a multinodular goiter. Plan Outpt thyroid biopsy Current Visit: Yes (2) Acute blood loss anemia Status: Acute Assessment and plan: with occult blood in stools s/p transfusion of 4units of packed cells.H/H is stable. EGD showed a superficial antral gastric ulcer,colonoscopy done yesterday showed colon polyps and diverticulosis.Small bowel follow-through was negative..H/H is stable Plan Continue to monitor H/H and transfuse on a prn basis follow GI's recommendations PPIs Current Visit: Yes (3) HTN (hypertension) Status: Chronic Assessment and plan: stable, will dc IVF Current Visit: No (4) Partial epilepsy Status: Acute Assessment and plan: continue home meds, continue to hold tramadol because this can reduce seizure threshold Current Visit: No (5) Chronic renal failure Status: Acute Assessment and plan: Stable. avoid Nephrotoxics BMP in am Current Visit: Yes (6) E. coli UTI Status: Acute Assessment and plan: UC grew E.Coli resistant to Levaquin and Cipro, patient is allergic to penicillins. plan Continue IV Tobramycin Current Visit: Yes (7) Multinodular goiter Status: Acute Assessment and plan: Throglobulin Tumour marker is elevated. plan TSH, T4,T3 levels Outpt thyroid biopsy Current Visit: Yes Hospitalist: Subjective Interval history: patient seen with no new issues. Small bowel follow-through was negative. Thyroid scan showed a multinodular goiter.H/H is stable. Exam - Constitutional Vitals: Period Temp Pulse Resp BP Sys/Cabrera Pulse Ox Last 24 Hr 96.0 F-99.0 F 73-76 16-20 125-190/58-89 94-98 General appearance: no acute distress - Head Head exam: Present: normal inspection - Respiratory Respiratory exam: Present: clear to auscultation bilaterally - Cardiovascular Cardiovascular exam: Present: regular rate and rhythm - GI/Abdominal GI/Abdominal exam: Present: normal bowel sounds - Back Exam Back exam: Present: normal inspection - Neurological Exam Neurological exam: Present: alert, oriented X3 Results - Labs CBC & BMP: 02/25/17 05:55 02/25/17 05:55 Lab Results: I have reviewed the past 24 hour labs Quality Measures - VTE Contraindication to Pharmacological VTE Prophylaxis: Active Bleeding
[2017-02-25 12:19] LABS: Thyroid Stimulating Hormone 0.61 uIU/ml (0.358-3.74)
[2017-02-25] MEDS ORDERED: TOBRAMYCIN INJ 100 MG in SODIUM CHLORIDE 0.9% 100 ML IV SCH (14:00)
[2017-02-25] MEDS: SODIUM CHLORIDE 0.9% 1,000 ML IV SCH (15:00)
[2017-02-25] MEDS: ATORVASTATIN 10 MG TABLET PO SCH (21:39)
[2017-02-25] MEDS: traZODone 50 MG TABLET PO SCH (21:39)
[2017-02-26] MEDS: carBAMazepine 200 MG TABLET PO SCH (09:27)
[2017-02-26] MEDS: ESCITALOPRAM 10 MG TABLET PO SCH (09:27)
[2017-02-26] MEDS: amLODIPine 5 MG TABLET PO SCH (09:28)
[2017-02-26] MEDS: PANTOPRAZOLE 40 MG VIAL IV SCH (09:28)
--- NOTE | 2017-02-26 10:31 | Discharge Summary ---
<Yung Mohan - Last Filed: 02/26/17 09:58> Hospital Course - Hospital Course Hospital Course: Ms. Castaneda is a 56 year old female who was admitted on 02/21/17 after her PCP found her to be anemic requiring transfusion. She was admitted to the hospital medicine service and transfused with a total of 4 units of PRBCs. At the time of admission, the patient was found to be anemic (H&H 6.6 and 18.4) and venous doppler found evidence of a DVT in her left lower extremity. Due to her active GI bleed, the patient had an IVC filter placed by IR on 02/22/[address] Jose Womack. V/Q scan showed a normal study and no PE. GI was consulted to evaluate the source of her bleed and proceeded with an EGD on 02/22/2017. Findings included a superficial antral gastric ulcer which is unlikely able to cause the severity of her anemia. She had a colonoscopy the following morning which found 1. colon polyps 2. diverticulosis. Still no obvious source for the anemia, GI decided to proceed with small bowel follow-through to evaluate further which was negative. Patient's H&H remains stable at 10.6 and 29.7. Anemia has been attributed to peptic ulcer disease. Other problems followed during her hospital course include: 1. Elevated TSH and Thyroglobulin Tumor marker - thyroid scan reveal multinodular goiter, recommend outpatient thyroid biopsy 2. Chronic renal failure - stabilized, BUN 16 creatinine 1.60 3. E. coli UTI - resistant to levaquin and cipro, patient treated with tobramycin 4. HTN - stable At this time the patient is stable for discharge. She will be discharged home to self with PCP follow up in 1-2 weeks. She should continue with PPI therapy and iron supplementation as recommended by GI. Her vitals are stable, she will go home today. - Time spent with patient Time with patient DS: Greater than 30 minutes Diagnosis - Discharge Diagnosis (1) Anemia Status: Acute (2) Deep vein thrombosis (DVT) of left lower extremity Status: Acute (3) Occult blood in stools Status: Acute (4) Partial epilepsy Status: Acute (5) HTN (hypertension) Status: Chronic Discharge Plan - Discharge Data Disposition: Disch To Home/Self Care - Discharge Medications New Sulfameth/Trimeth 800-160 Tab [Bactrim DS Tab] 1 tablet PO BID #14 tablet amLODIPine [Norvasc] 5 mg PO DAILY #30 tablet HYDROcodone/ACETAMIN 5-325 [[place] 5-325] 1 tablet PO Q4H #20 tablet Pantoprazole Tab [Protonix Tab] 40 mg PO DAILY #30 tablet Continue Albuterol Inhaler [Proventil Inhaler] 2 puff INH Q4H PRN #1 inhaler PRN Reason: Shortness Of Breath/Wheezing Atorvastatin [Lipitor] 10 mg PO BEDTIME Tramadol HCl [Tramadol Tab] 50 mg PO Q6H PRN PRN Reason: Pain Tizanidine HCl 4 mg PO Q8H PRN PRN Reason: Muscle Spasm traZODone [Desyrel] 50 mg PO BEDTIME Escitalopram [Lexapro] 20 mg PO DAILY NIFEdipine XL TAB [Procardia Xl] 60 mg PO DAILY Topiramate 100 mg DAILY carBAMazepine [Carbatrol] 200 mg PO BID Discontinued Potassium Chloride [Klor-Con 10] 10 meq PO DAILY Brexpiprazole [Rexulti] 1 mg PO DAILY Aspirin [Ecotrin] 81 mg PO DAILY Lisinopril 40 mg PO DAILY - Follow Up or Referral - Forms/Instructions Exam - Constitutional Vitals: Period Temp Pulse Resp BP Sys/Cabrera Pulse Ox Last 24 Hr 97.1 F-98.2 F 41-77 18-22 123-164/57-74 91-97 Discharge Results Procedures and tests throughout hospitalization: Pending Orders 02/24/17 13:08 Blood Culture Routine 02/25/17 05:55 Free T3 (Triiodothyronine), S Stat Labs on day of discharge: Labs from last 24 hours 02/25/17 05:55 Free T4 1.00 TSH 3rd Generation 0.610 Preliminary micro results at discharge 02/24/17 13:08 Blood Culture - Preliminary Blood No growth at 1 day 02/24/17 13:08 Blood Culture - Preliminary Blood No growth at 1 day DS: Provider Date of admission: 02/21/17 15:16 Primary care physician: . No PCP Attending physician on admission: Adwoa Alfred MD Consults: 02/21/17 15:33 Consult to Physician [CONS] Routine Comment: Consulting Provider: Alexis White Consult to Specialist Group: Gastroenterology Person Notified: Dr. white Date Notified: 02/21/17 Time Notified: 17:05 Consult Notification Comment: Notified by dena blackburn rn 02/21/17 16:53 Consult to Dietitian [CONS] Routine Reason for Dietitian: Dietary Consult Discharging clinician: Yung ZELAYA Expected date of discharge: 02/26/17 <Adwoa Alfred - Last Filed: 02/26/17 10:49> Hospital Course - Time spent with patient Time with patient DS: Greater than 30 minutes (Time spent geater than 35mins) Diagnosis - Discharge Diagnosis (1) Deep vein thrombosis (DVT) of left lower extremity Status: Acute (2) Acute blood loss anemia Status: Acute (3) HTN (hypertension) Status: Chronic (4) Partial epilepsy Status: Acute (5) Chronic renal failure Status: Acute (6) E. coli UTI Status: Acute (7) Multinodular goiter Status: Acute Discharge Plan - Discharge Data Condition at Discharge: Stable Discharge Diet: advance to your usual diet Activity: resume usual activities as tolerated - Forms/Instructions Additional Discharge Instructions: Thyroid biopsy as outpatient. Follow with PCP in 1week, follow with GI as scheduled. Exam - Constitutional General appearance: no acute distress - Head Head exam: Present: normal inspection - Respiratory Respiratory exam: Present: clear to auscultation bilaterally - Cardiovascular Cardiovascular exam: Present: regular rate and rhythm - GI/Abdominal GI/Abdominal exam: Present: normal bowel sounds - Extremities Exam Extremities exam: Present: normal inspection - Neurological Exam Neurological exam: Present: alert, oriented X3
[2017-02-26 12:39] VITALS: BP 151/81
--- NOTE | 2017-03-03 08:49 | Physician Query Form ---
CLICK EDIT DOCUMENT TO SELECT QUERY ANSWER --> OK --> SIGN Adela Bolton RN Clinical Mexican Food Maker W) [phone] (f) [phone] [email or web address] PROVIDERS: Make your selection(s) from the choices in EACH section by typing an "x" and enter comments in the comment section. Please use your independent medical judgment in providing your response. This request does not imply that any particular answer is desired or expected. 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 Recommendations: Suggest [id number] calorie diet for weight reduction If applicable, please provide an associated diagnosis related to the abnormal BMI: BMI of 40 or greater: ( ) Overweight (x ) Obesity ( ) Morbid//Severe Obesity ( ) Obesity with Alveolar Hypoventilation ( ) Weight Gain ( ) BMI is not significant ( ) Other, please specify: ( ) Clinically unable to determine COMMENTS: PLEASE ALSO DOCUMENT RESPONSE IN PROGRESS NOTES AND/OR DISCHARGE SUMMARY Use of terms such as suspected, likely, or probable (associated with a specific diagnosis that is being evaluated, monitored, or treated as if it exists) are acceptable and can be restated in the discharge summary if not ruled out. MTDD
== END 2017-02-26 13:50 | disposition home or self-care (01) | DRG 252 ==
LOC: N.ED 11:52 → N.EDINP 15:16 → N.2E 16:25
PROVIDERS: ADMIT Internal Medicine; ATTEND Internal Medicine

== ENCOUNTER 2017-03-21 03:38 | Inpatient (IN) ==
[2017-03-21] MEDS ORDERED: HYDROmorphone 2 MG/1 ML VIAL IV STA ×3 (04:06→09:56)
[2017-03-21] MEDS ORDERED: ONDANSETRON 4 MG/2 ML VIAL IV STA (04:06)
--- NOTE | 2017-03-21 04:10 | Emergency Department Note ---
Arrival - Arrival Chief Complaint: Extremity Problem Stated Complaint: legs numb ED Nursing Triage Note: Pt to triage with c/o left leg numbness. Pt states she was recently hospitalized here for her leg due to blood clots. Mode of Arrival: Wheelchair Time Seen by Provider: 03/21/17 04:05 - History of Present Illness HPI Narrative: This is a 56-year-old white female who has chronic recurrent anemia was admitted to the hospital 02/26/17 for anemia with a hemoglobin of 6.6 for which she receives 4 units of transfused red blood cells which was documented to be due to a antral gastric ulcer which was bleeding who also had a venous Doppler study which showed a deep venous thrombosis of the left lower extremity for which she was NOT started on anticoagulant medication because of her active gastrointestinal bleeding who had an IVC filter placed by interventional radiology on February 22, 2017, who had a negative VQ scan, who was also noted to have multinodular goiter by thyroid scan, E. coli urinary tract infection resistant to Levaquin and Cipro treated with tobramycin and hypertension who is on amLODIPine, NIFEdipine XL, atorvastatin who presents with numbness and tingling of her left lower extremity which started 24 hours ago without associated weakness which on examination which showed to have a positive straight leg raising test suggestive of left L4-L5 radiculopathy. Date of Last Menstrual Period: menopause Allergies/Adverse Reactions: Allergies Allergy/AdvReac Type Severity Reaction Status Date / Time Penicillins Allergy Intermediate RASH Verified 03/21/17 03:48 Home Medications: Home Medications Medication Instructions Recorded Confirmed Type Escitalopram [Lexapro] 20 mg PO DAILY 07/09/16 03/21/17 History NIFEdipine XL TAB [Procardia Xl] 60 mg PO DAILY 07/09/16 03/21/17 History Topiramate 50 mg PO BID 07/09/16 03/21/17 History carBAMazepine [Carbatrol] 200 mg PO BID 07/09/16 03/21/17 History traZODone [Desyrel] 50 mg PO BEDTIME 07/09/16 03/21/17 History Albuterol Inhaler [Proventil 2 puff INH Q4H PRN #1 inhaler 07/18/16 03/21/17 Rx Inhaler] Atorvastatin [Lipitor] 10 mg PO BEDTIME 02/21/17 03/21/17 History Tizanidine HCl 4 mg PO Q8H PRN 02/21/17 03/21/17 History Tramadol HCl [Tramadol Tab] 50 mg PO Q6H PRN 02/21/17 03/21/17 History HYDROcodone/ACETAMIN 5-325 [[place] 1 tablet PO Q4H #20 tablet 02/26/17 03/21/17 Rx 5-325] Pantoprazole Tab [Protonix Tab] 40 mg PO DAILY #30 tablet 02/26/17 03/21/17 Rx Sulfameth/Trimeth 800-160 Tab 1 tablet PO BID #14 tablet 02/26/17 03/21/17 Rx [Bactrim DS Tab] amLODIPine [Norvasc] 5 mg PO DAILY #30 tablet 02/26/17 03/21/17 Rx methylPREDNISolone 4 mg PO 03/21/17 History [Methylprednisolone] Review of System - Review of System Constitutional: Absent: fever, night sweats Eyes: Absent: redness, vision change Head/Ears/Nose/Throat: Absent: epistaxis, nasal drainage Respiratory: Absent: respiratory distress, wheezing Cardiovascular: Absent: dyspnea on exertion, orthopnea Gastrointestinal: Absent: diarrhea, constipation, hematemesis, melena Genitourinary female: Absent: dyspareunia, frequency, genital lesions, hematuria Musculoskeletal: Absent: joint swelling, lower back pain Skin: Absent: change in color, change in hair/nails Neurological: Absent: numbness, paresthesias, confusion Psychiatric: Absent: anxiety, depression Endocrine: Absent: heat intolerance, polydipsia Hematological/Lymphatic: Absent: easy bruising, lymphadenopathy Allergic/Immunologic: Absent: urticaria, itchy eyes Medical,Surgical,& Family Hx - Medical History Cardio: History of: Hypertension No history of: Aneurysm, Cardiac Dysrhythmia, Cerebrovascular Disease, Congenital Heart Disease, CHF, CAD, [place], Pacemaker, PVD, Valvular Heart Disease, Cardiovascular Problems Psychological: History of: Anxiety Disorders Neurology: History of: Seizures No history of: Brain Aneurysm, Cerebral Hemorrhage, Cerebrovascular Accident , Cerebral Palsy, Dementia, Migraine, Multiple Sclerosis, Parkinson's Disease, Peripheral Neuropathy, TIA, Vertigo, Neurologocal Cancer HEENT: History of: Ear Problem ("cant hear good"), Eye Problem ("difficulty seeing") Endocrine: History of: Thyroid Disorder No history of: Dyslipidemia Rheumatology: History of;: Rheumatoid Arthritis Respiratory: No history of: Asthma, Bronchitis, COPD, Intubation, Obstructive Sleep Apnea , Pulmonary Embolism, Pulmonary Hypertension, Pneumonia, Lung Cancer, Respiratory Problems Hematology: History of: Anemia, Clotting Problems No history of: Bleeding Problems, Sickle Cell Disease, Hematologic Cancer, Blood Disorders - Surgical History Cardiac Surgeries: Patient Denies: Femoral-Popliteal Bypass Graft, Cardiac Catheterization, Cardiac Surgery, Carotid Endarterectomy, Internal Defibrillator, Vascular Access Devices Thoracic Surgeries: Patient denies;: Organ Transplant, Lobectomy Neurologic Surgeries: Patient denies: Brain Aneurysm, Cerebral Hemorrhage, Neurologic Surgery HEENT Surgeries: Patient denies: Carotid Endarterectomy, Eye Surgery, Thyroid Surgery, Tonsilectomy & Adenoidectomy Abdominal Surgeries: Patient denies: Abdominal Surgery, Splenectomy Reproductive Surgeries: Surgical HX of;: Tubal Ligation - Family History Family History: Reports;: Family Diabetes, Family Hypertension, Family Stroke - Social History Smoking Status: Never smoker Frequency of Alcohol Use: None Type of Drug Use: None Exam Vital Signs: Vital Signs Temperature 96.7 F L 03/21/17 03:40 Pulse Rate 82 03/21/17 03:40 Respiratory Rate 18 03/21/17 03:40 Blood Pressure 150/11 03/21/17 03:40 O2 Sat by Pulse Oximetry 100 03/21/17 03:40 - General Exam limited due to: ALOC - Head Head exam: Present: atraumatic, normocephalic - Eye Eye exam: Present: PERRL, EOMI - ENT ENT exam: Present: normal exam, normal oropharynx - Neck Neck exam: Present: normal inspection, full ROM - Chest Chest inspection: Present: normal inspection, symmetric chest wall rise - Respiratory Respiratory exam: Present: normal lung sounds bilaterally - Cardiovascular Cardiovascular exam: Present: regular rate, normal rhythm - Abdominal Exam Abdominal exam: Present: soft, normal bowel sounds - Extremities Exam Extremities exam: Present: normal inspection, full ROM - Back Exam Back exam: Present: normal inspection, full ROM - Neurological Exam Neurological exam: Present: other (No motor or sensory deficits are noted in the lower and upper extremities however the straight leg raising test was positive on the left) - Psychiatric Psychiatric exam: Present: normal affect, normal mood - Skin Skin exam: Present: warm, dry
[2017-03-21] MEDS ORDERED: ONDANSETRON 4 MG/2 ML VIAL ONE (04:11)
[2017-03-21] MEDS ORDERED: HYDROmorphone 2 MG/1 ML VIAL ONE ×2 (04:12→09:57)
[2017-03-21 04:35] LABS: Basophils % 0.2 % (0.0-0.8); Eosinophils # 0.1 10*3/uL (0.0-0.87); Eosinophils % 0.4 % (0.00-10.9); Hematocrit 25.5 VOL% (35.7-47.0); Immature Granulocytes % 1.2 %; Immature Granulocytes Absolute 0.15 #; Lymphocytes # 2.7 10*3/uL (1.4-4.0); Lymphocytes % 20.6 % (21.3-54.2); Mean Corpuscular HGB Conc 35.3 GM/DL (32-36); Mean Corpuscular Hemoglobin 36 PG (27-34); Mean Corpuscular Volume 101.6 FL (87-102); Monocytes # 1.3 10*3/uL (0.11-0.8); NRBC # 0.03 10*3/uL; Neutrophils # 8.7 10*3/uL (1.4-7.4); Neutrophils % 67.6 % (38.7-73.9); Platelet Count 127 T/CUMM (130-400); Red Blood Count 2.51 MC/CUMM (3.8-5.5); White Blood Count 12.9 T/CUMM (4-12)
[2017-03-21 05:02] LABS: Alanine Aminotransferase 20 U/L (13-56); Albumin 3.9 G/DL (3.4-5.0); Alkaline Phosphatase 77 U/L (45-117); Aspartate Amino Transferase 16 U/L (0-37); Bilirubin,Total < 0.39 MG/DL (0.2-1.0); Blood Urea Nitrogen 25 MG/DL (7-18); Calcium 8.8 MG/DL (8.5-10.1); Glucose 169 MG/DL (74-106); Osmolality,Calculated 284.5 MOS/KG (273-304); Potassium 3.6 MMOL/L (3.5-5.1); Sodium 139 MMOL/L (136-145); Total Protein 7.2 G/DL (6.4-8.3)
--- NOTE | 2017-03-21 05:53 | Hospitalist History & Physical ---
Assessment and Plan (1) Anemia Status: Acute Current Visit: No (2) Anemia associated with acute blood loss Status: Acute Current Visit: No (3) Chronic renal failure Status: Acute Current Visit: No (4) Deep vein thrombosis (DVT) of left lower extremity Status: Acute Current Visit: No (5) HTN (hypertension) Status: Chronic Current Visit: No (6) History of CVA (cerebrovascular accident) Status: Chronic Assessment and plan: Our plan for this patient 1. Admit the patient to monitored bed 2. Need to verify that she is not still continuing to lose blood. Will need to monitor H&H every 4 hours 3. Get her ultrasound of her leg and arterial studies 4. Continue other home meds as appropriate 5. She has some fact not having any more GI bleeding consider starting her on anticoagulation. My suspicion is that her clot burden has increased from last hospitalization. Current Visit: No History of Present Illness Chief complaint: Leg pain History of present illness: Ms. Wyatt is a 56 year old female medical history significant for anemia who was hospitalized recently for GI bleed anemia required transfusion that was subsequently had a venous Doppler that showed a DVT. She was not started on anticoagulation because she was actively having a gastrointestinal bleed. She had IVC filter placed on February 22. She had a negative VQ scan and found to have a multinodular goiter by thyroid scan. Patient has been doing well the past few weeks. Tonight she felt like her leg was heavy and seem like it was bigger than the right one. Ida slightly cooler to the touch. Patient came up in for further evaluation. Patient is currently sedated from pain medications and was unable to contribute to the history. The additional history was obtained from the ER chart and her friend that was in the room with her. I was consulted to admit her through the emergency room.Patient still seems like she is having some issues with anemia. And she has had a slight bump in creatinine. I was consulted to admit her. Home Medications Medication Instructions Recorded Confirmed Type Escitalopram [Lexapro] 20 mg PO DAILY 07/09/16 03/21/17 History NIFEdipine XL TAB [Procardia Xl] 60 mg PO DAILY 07/09/16 03/21/17 History Topiramate 50 mg PO BID 07/09/16 03/21/17 History carBAMazepine [Carbatrol] 200 mg PO BID 07/09/16 03/21/17 History traZODone [Desyrel] 50 mg PO BEDTIME 07/09/16 03/21/17 History Albuterol Inhaler [Proventil 2 puff INH Q4H PRN #1 inhaler 07/18/16 03/21/17 Rx Inhaler] Atorvastatin [Lipitor] 10 mg PO BEDTIME 02/21/17 03/21/17 History Tizanidine HCl 4 mg PO Q8H PRN 02/21/17 03/21/17 History Tramadol HCl [Tramadol Tab] 50 mg PO Q6H PRN 02/21/17 03/21/17 History HYDROcodone/ACETAMIN 5-325 [[place] 1 tablet PO Q4H #20 tablet 02/26/17 03/21/17 Rx 5-325] Pantoprazole Tab [Protonix Tab] 40 mg PO DAILY #30 tablet 02/26/17 03/21/17 Rx Sulfameth/Trimeth 800-160 Tab 1 tablet PO BID #14 tablet 02/26/17 03/21/17 Rx [Bactrim DS Tab] amLODIPine [Norvasc] 5 mg PO DAILY #30 tablet 02/26/17 03/21/17 Rx Allergies Allergy/AdvReac Type Severity Reaction Status Date / Time Penicillins Allergy Intermediate RASH Verified 03/21/17 04:41 Medical,Surgical,& Family Hx - Medical History Cardio: History of: Hypertension No history of: Aneurysm, Cardiac Dysrhythmia, Cerebrovascular Disease, Congenital Heart Disease, CHF, CAD, [place], Pacemaker, PVD, Valvular Heart Disease, Cardiovascular Problems Psychological: History of: Anxiety Disorders Neurology: History of: Seizures No history of: Brain Aneurysm, Cerebral Hemorrhage, Cerebrovascular Accident , Cerebral Palsy, Dementia, Migraine, Multiple Sclerosis, Parkinson's Disease, Peripheral Neuropathy, TIA, Vertigo, Neurologocal Cancer HEENT: History of: Ear Problem ("cant hear good"), Eye Problem ("difficulty seeing") Endocrine: History of: Thyroid Disorder No history of: Dyslipidemia Rheumatology: History of;: Rheumatoid Arthritis Respiratory: No history of: Asthma, Bronchitis, COPD, Intubation, Obstructive Sleep Apnea , Pulmonary Embolism, Pulmonary Hypertension, Pneumonia, Lung Cancer, Respiratory Problems Hematology: History of: Anemia, Clotting Problems No history of: Bleeding Problems, Sickle Cell Disease, Hematologic Cancer, Blood Disorders - Surgical History Cardiac Surgeries: Patient Denies: Femoral-Popliteal Bypass Graft, Cardiac Catheterization, Cardiac Surgery, Carotid Endarterectomy, Internal Defibrillator, Vascular Access Devices Thoracic Surgeries: Patient denies;: Organ Transplant, Lobectomy Neurologic Surgeries: Patient denies: Brain Aneurysm, Cerebral Hemorrhage, Neurologic Surgery HEENT Surgeries: Patient denies: Carotid Endarterectomy, Eye Surgery, Thyroid Surgery, Tonsilectomy & Adenoidectomy Abdominal Surgeries: Patient denies: Abdominal Surgery, Splenectomy Reproductive Surgeries: Surgical HX of;: Tubal Ligation - Family History Family History: Reports;: Family Diabetes, Family Hypertension, Family Stroke - Social History Smoking Status: Never smoker Frequency of Alcohol Use: None Type of Drug Use: None 12 point system: reviewed and no additional remarkable complaints except as stated Exam - Constitutional Vitals: Period Temp Pulse Resp BP Sys/Cabrera Pulse Ox Last 24 Hr 96.7 F 75-82 18-22 150-174/11-94 100 General appearance: over weight - Head Head exam: Present: normal inspection - Eye Eye exam: Present: EOMI Pupils: Present: NGA - ENT ENT exam: Present: normal exam - Neck Neck exam: Present: normal inspection - Respiratory Respiratory exam: Present: clear to auscultation bilaterally - Cardiovascular Cardiovascular exam: Present: regular rate and rhythm - GI/Abdominal GI/Abdominal exam: Present: normal bowel sounds - Extremities Exam Extremities exam: Present: other (The left leg is larger than the right leg diffusely. And it is slightly cooler to touch) - Back Exam Back exam: Present: normal inspection - Neurological Exam Neurological exam: Present: other (Patient sedated from pain medication) Results - Labs CBC & BMP: 03/21/17 04:30 03/21/17 04:30
[2017-03-21] MEDS ORDERED: GLUCAGON 1 MG VIAL IM PRN (05:57)
[2017-03-21] MEDS ORDERED: DEXTROSE 50% 25 GM/50 ML SYRINGE IV PRN (05:57)
[2017-03-21] MEDS ORDERED: traMADol 50 MG TABLET PO PRN (06:03)
--- NOTE | 2017-03-21 07:53 | Ultrasound Report ---
Exam: Left lower extremity venous Doppler/duplex ultrasound Comparison: 02/21/2017 Clinical history: Pain and swelling, history of DVT Technique: Duplex scan of the left lower extremity veins using th B- mode/grayscale imaging and Dopplers spectral analysis and color flow. Findings: Progressive occluding thrombosis in the left common femoral, superficial femoral, popliteal, and saphenous veins. There is only minimal flow noted in the superficial femoral and popliteal veins. Abnormal compression and augmentation. Color-flow noted in the adjacent arteries. Impression: Progressive occluding DVT involving the veins in the left lower extremity. This report was given to the patient's nurse in the emergency room by the technologist at the completion exam. Ultrasound images were captured and stored. PROCEDURE INTERPRETED AT [facility] DEPARTMENT OF RADIOLOGY Final Report Signed by: Dr. Kenia Brady
[2017-03-21 08:33] LABS: Hematocrit 27.8 VOL% (35.7-47.0)
[2017-03-21] MEDS ORDERED: PANTOPRAZOLE 40 MG TABLET PO SCH (09:00)
[2017-03-21] MEDS ORDERED: PANTOPRAZOLE 40 MG TABLET PO ONE (11:48)
[2017-03-21] MEDS ORDERED: amLODIPine 5 MG TABLET ONE (11:48)
[2017-03-21] MEDS ORDERED: SULFAMETHOX/TRIMETHOPRIM 800-160 MG TABLET ONE (11:48)
[2017-03-21] MEDS: amLODIPine 5 MG TABLET PO SCH (11:53)
[2017-03-21] MEDS: SULFAMETHOX/TRIMETHOPRIM 800-160 MG TABLET PO SCH ×2 (11:55→20:26)
[2017-03-21 12:21] LABS: Hematocrit 29.4 VOL% (35.7-47.0); Hemoglobin 10.4 GM/DL (12.0-16.0)
--- NOTE | 2017-03-21 14:03 | Gastrointestinal Consult Note ---
<Kimberly Plata - Last Filed: 03/21/17 14:01> Assessment and Plan (1) Rectal bleed Status: Acute Assessment and plan: 03/21-admitted with left leg pain with findings of progressively occluding DVT, now on IV heparin therapy. Recent admission for anemia and GI bleeding with endoscopy, upper and lower, and small bowel follow-through studies noted as below. H&H unchanged from discharge lab in early February after 4 units of packed red blood cells during that prior hospitalization. Complaints of constipation and hemorrhoidal pain with defecation. Begin Anusol HC suppositories. Monitor H&H. Plan an addendum to follow Dr. White. Current Visit: Yes History of Present Illness History of present illness: Ms. Serna is a 81 year old female who was admitted to the hospital today after she woke up in the middle the night and had numbness in her left leg. Patient states that she woke up to go to the bathroom she could not move her left leg became alarmed. She came to the emergency room for further evaluation and at that time she had a venous Doppler study done that showed a progressively occluding DVT to the left lower extremity. She has been admitted for further workup at this time. Patient was discharged from the hospital recently after inpatient stay for GI bleed which required a blood transfusion that also resulted in a development of a DVT to her LLE which required IVC placement. During that admission, patient underwent a workup with an EGD which showed superficial antral gastric ulcer and then a colonoscopy which showed colon polyps (tubular adenoma) and diverticulosis. She also had a small bowel follow- through done which showed no acute findings. During that hospitalization, she was transfused 4 units of packed red blood cells and was discharged with an H&H of 05/22 on February 25. Her H&H today is 05/22 is well. Patient states that she has in the past 2 or 3 days seen a small amount of bright red blood with her bowel movements. She does admit that she has been increasingly constipated and she knows that she has some hemorrhoids with some pain and burning with defecation. She denies any abdominal pain, nausea or vomiting. She has been placed on a heparin infusion at this time Home Medications Medication Instructions Recorded Confirmed Type Escitalopram [Lexapro] 20 mg PO DAILY 07/09/16 03/21/17 History NIFEdipine XL TAB [Procardia Xl] 60 mg PO DAILY 07/09/16 03/21/17 History Topiramate 50 mg PO BID 07/09/16 03/21/17 History carBAMazepine [Carbatrol] 200 mg PO BID 07/09/16 03/21/17 History traZODone [Desyrel] 50 mg PO BEDTIME 07/09/16 03/21/17 History Albuterol Inhaler [Proventil 2 puff INH Q4H PRN #1 inhaler 07/18/16 03/21/17 Rx Inhaler] Atorvastatin [Lipitor] 10 mg PO BEDTIME 02/21/17 03/21/17 History Tizanidine HCl 4 mg PO Q8H PRN 02/21/17 03/21/17 History Tramadol HCl [Tramadol Tab] 50 mg PO Q6H PRN 02/21/17 03/21/17 History HYDROcodone/ACETAMIN 5-325 [[place] 1 tablet PO Q4H #20 tablet 02/26/17 03/21/17 Rx 5-325] Pantoprazole Tab [Protonix Tab] 40 mg PO DAILY #30 tablet 02/26/17 03/21/17 Rx Sulfameth/Trimeth 800-160 Tab 1 tablet PO BID #14 tablet 02/26/17 03/21/17 Rx [Bactrim DS Tab] amLODIPine [Norvasc] 5 mg PO DAILY #30 tablet 02/26/17 03/21/17 Rx Allergies Allergy/AdvReac Type Severity Reaction Status Date / Time Penicillins Allergy Intermediate RASH Verified 03/21/17 04:41 Medical,Surgical,& Family Hx - Medical History Cardio: History of: Hypertension No history of: Aneurysm, Cardiac Dysrhythmia, Cerebrovascular Disease, Congenital Heart Disease, CHF, CAD, [place], Pacemaker, PVD, Valvular Heart Disease, Cardiovascular Problems Psychological: History of: Anxiety Disorders Neurology: History of: Seizures No history of: Brain Aneurysm, Cerebral Hemorrhage, Cerebrovascular Accident , Cerebral Palsy, Dementia, Migraine, Multiple Sclerosis, Parkinson's Disease, Peripheral Neuropathy, TIA, Vertigo, Neurologocal Cancer HEENT: History of: Ear Problem ("cant hear good"), Eye Problem ("difficulty seeing") Endocrine: History of: Thyroid Disorder No history of: Dyslipidemia Rheumatology: History of;: Rheumatoid Arthritis Respiratory: No history of: Asthma, Bronchitis, COPD, Intubation, Obstructive Sleep Apnea , Pulmonary Embolism, Pulmonary Hypertension, Pneumonia, Lung Cancer, Respiratory Problems Hematology: History of: Anemia, Clotting Problems No history of: Bleeding Problems, Sickle Cell Disease, Hematologic Cancer, Blood Disorders - Surgical History Cardiac Surgeries: Patient Denies: Femoral-Popliteal Bypass Graft, Cardiac Catheterization, Cardiac Surgery, Carotid Endarterectomy, Internal Defibrillator, Vascular Access Devices Thoracic Surgeries: Patient denies;: Organ Transplant, Lobectomy Neurologic Surgeries: Patient denies: Brain Aneurysm, Cerebral Hemorrhage, Neurologic Surgery HEENT Surgeries: Patient denies: Carotid Endarterectomy, Eye Surgery, Thyroid Surgery, Tonsilectomy & Adenoidectomy Abdominal Surgeries: Patient denies: Abdominal Surgery, Splenectomy Reproductive Surgeries: Surgical HX of;: Tubal Ligation - Family History Family History: Reports;: Family Diabetes, Family Hypertension, Family Stroke - Social History Smoking Status: Never smoker Frequency of Alcohol Use: None Type of Drug Use: None 12 point system: reviewed and no additional remarkable complaints except as stated - Constitutional Constitutional: Present: as per HPI - EENT Eyes: Present: as per HPI Ears: Present: as per HPI Nose, mouth and throat: Present: as per HPI - Cardiovascular Cardiovascular: Present: as per HPI - Respiratory Respiratory: Present: as per HPI - Gastrointestinal Gastrointestinal: Present: as per HPI, hematochezia - Genitourinary Genitourinary: Present: as per HPI - Musculoskeletal Musculoskeletal: Present: as per HPI - Neurological Neurological: Present: as per HPI - Psychiatric Psychiatric: Present: as per HPI - Endocrine Endocrine: Present: as per HPI - Hematologic/Lymphatic Hematologic/Lymphatic: Present: as per HPI Exam - Constitutional Vitals: Period Temp Pulse Resp BP Sys/Cabrera Pulse Ox Last 24 Hr 96.7 F 70-85 14-23 111-174/11-104 92-100 General appearance: normal weight, no acute distress - Head Head exam: Present: normal inspection, normocephalic - Eye Eye exam: Present: other (Lids and conjunctive are unremarkable). Absent: scleral icterus - ENT ENT exam: Present: normal exam, normal oropharynx - Neck Neck exam: Present: normal inspection - Respiratory Respiratory exam: Present: clear to auscultation bilaterally. Absent: rales, rhonchi, wheezes - Cardiovascular Cardiovascular exam: Present: regular rate and rhythm. Absent: diastolic murmur , JVD, systolic murmur - GI/Abdominal GI/Abdominal exam: Present: normal bowel sounds, soft. Absent: ascites, distended, mass, organomegaly, tenderness - Extremities Exam Extremities exam: Present: normal inspection, full ROM - Back Exam Back exam: Present: normal inspection - Neurological Exam Neurological exam: Present: alert, oriented X3 - Psychiatric Psychiatric exam: Present: normal affect, normal mood - Skin Skin exam: Present: normal color, warm, dry Results - Labs CBC & BMP: 03/21/17 12:12 03/21/17 04:30 Lab Results: I have reviewed the past 24 hour labs <Alexis White - Last Filed: 03/21/17 17:45> History of Present Illness History of present illness: Ms. Wyatt is a 56 year old female Exam - Constitutional Vitals: Period Temp Pulse Resp BP Sys/Cabrera Pulse Ox Last 24 Hr 96.7 F-98.6 F 70-87 14-23 111-174/11-104 92-100 Results - Labs CBC & BMP: 03/21/17 15:47 03/21/17 04:30
[2017-03-21] MEDS ORDERED: POLYETHYLENE GLYCOL POWDER 17 GM PACK PO PRN (14:06)
[2017-03-21] MEDS ORDERED: HYDROCORTISONE 25 MG SUPP RECTAL PRN (14:06)
[2017-03-21] MEDS ORDERED: ALBUTEROL 2.5 MG/3 ML NEB RESP TX PRN (15:00)
[2017-03-21] MEDS: INSULIN REGULAR 100 UNIT/ML SUBCUT SCH ×3 (15:49→20:50)
[2017-03-21] MEDS: carBAMazepine 200 MG TABLET PO SCH ×2 (16:07→20:25)
[2017-03-21] MEDS: TOPIRAMATE 25 MG TABLET PO SCH ×2 (16:07→20:26)
[2017-03-21] MEDS: ESCITALOPRAM 10 MG TABLET PO SCH (16:07)
[2017-03-21] MEDS: SODIUM CHLORIDE 0.9% 1,000 ML IV SCH (16:08)
[2017-03-21 16:11] LABS: Hematocrit 30.1 VOL% (35.7-47.0); Hemoglobin 10.6 GM/DL (12.0-16.0)
--- NOTE | 2017-03-21 16:32 | Vascular Surgery Consult Note ---
History of Present Illness Chief complaint: progressive left DVT History of present illness: Ms. Wyatt is a 56 year old female Mrs. Wyatt is a 56-year-old woman recently hospitalized actually the end of January with GI bleeding and anemia that was corrected with transfusion she was fairly thoroughly evaluated at that at that time and no acute source of bleeding was noted. During that hospitalization she was found to have left superficial femoral thrombosis extending into the popliteal and due to her GI bleeding was not felt to be a candidate for anticoagulation. A vena caval filter was placed she had been at home but returned with a sudden increasing numbness and difficulty with the left leg. Follow-up ultrasound indicates increasing deep vein thrombosis in the left leg. Blood counts appear to be stable although that she reports a small amount of bleeding with bowel movements now which may be hemorrhoidal. On physical exam she states her leg actually feels better it does not have massive edema nor tenseness to suggest a phlegmasia cerulea dolens picture. She is in no acute distress and does not have any sequela of chronic venous insufficiency. I suspect however though that if this thrombus is allowed to remain we may be facing a chronic venous insufficiency. I have explained to Ms. Wyatt and I believe her daughter the potential for the chronic venous insufficiency and the treatment options that we basically have our anticoagulation and possibly catheter directed thrombolyzes. I will discuss her with Dr. Gomez the interventional radiologist to determine if he feels that a catheter thrombolyzes of the popliteal and superficial femoral might be feasible and then we can discuss that with Ms. Wyatt. When I mentioned it to her she seems to be hesitant but we can certainly discuss that with her over the next coming days. I agree with going ahead with heparin anticoagulation at this time and she may in fact just need to be on chronic anticoagulation. Home Medications Medication Instructions Recorded Confirmed Type Escitalopram [Lexapro] 20 mg PO DAILY 07/09/16 03/21/17 History NIFEdipine XL TAB [Procardia Xl] 60 mg PO DAILY 07/09/16 03/21/17 History Topiramate 50 mg PO BID 07/09/16 03/21/17 History carBAMazepine [Carbatrol] 200 mg PO BID 07/09/16 03/21/17 History traZODone [Desyrel] 50 mg PO BEDTIME 07/09/16 03/21/17 History Albuterol Inhaler [Proventil 2 puff INH Q4H PRN #1 inhaler 07/18/16 03/21/17 Rx Inhaler] Atorvastatin [Lipitor] 10 mg PO BEDTIME 02/21/17 03/21/17 History Tizanidine HCl 4 mg PO Q8H PRN 02/21/17 03/21/17 History Tramadol HCl [Tramadol Tab] 50 mg PO Q6H PRN 02/21/17 03/21/17 History HYDROcodone/ACETAMIN 5-325 [[place] 1 tablet PO Q4H #20 tablet 02/26/17 03/21/17 Rx 5-325] Pantoprazole Tab [Protonix Tab] 40 mg PO DAILY #30 tablet 02/26/17 03/21/17 Rx Sulfameth/Trimeth 800-160 Tab 1 tablet PO BID #14 tablet 02/26/17 03/21/17 Rx [Bactrim DS Tab] amLODIPine [Norvasc] 5 mg PO DAILY #30 tablet 02/26/17 03/21/17 Rx Allergies Allergy/AdvReac Type Severity Reaction Status Date / Time Penicillins Allergy Intermediate RASH Verified 03/21/17 04:41 Medical,Surgical,& Family Hx - Medical History Cardio: History of: Hypertension No history of: Aneurysm, Cardiac Dysrhythmia, Cerebrovascular Disease, Congenital Heart Disease, CHF, CAD, [place], Pacemaker, PVD, Valvular Heart Disease, Cardiovascular Problems Psychological: History of: Anxiety Disorders Neurology: History of: Seizures No history of: Brain Aneurysm, Cerebral Hemorrhage, Cerebrovascular Accident , Cerebral Palsy, Dementia, Migraine, Multiple Sclerosis, Parkinson's Disease, Peripheral Neuropathy, TIA, Vertigo, Neurologocal Cancer HEENT: History of: Ear Problem ("cant hear good"), Eye Problem ("difficulty seeing") Endocrine: History of: Thyroid Disorder No history of: Dyslipidemia Rheumatology: History of;: Rheumatoid Arthritis Respiratory: No history of: Asthma, Bronchitis, COPD, Intubation, Obstructive Sleep Apnea , Pulmonary Embolism, Pulmonary Hypertension, Pneumonia, Lung Cancer, Respiratory Problems Hematology: History of: Anemia, Clotting Problems No history of: Bleeding Problems, Sickle Cell Disease, Hematologic Cancer, Blood Disorders - Surgical History Cardiac Surgeries: Patient Denies: Femoral-Popliteal Bypass Graft, Cardiac Catheterization, Cardiac Surgery, Carotid Endarterectomy, Internal Defibrillator, Vascular Access Devices Thoracic Surgeries: Patient denies;: Organ Transplant, Lobectomy Neurologic Surgeries: Patient denies: Brain Aneurysm, Cerebral Hemorrhage, Neurologic Surgery HEENT Surgeries: Patient denies: Carotid Endarterectomy, Eye Surgery, Thyroid Surgery, Tonsilectomy & Adenoidectomy Abdominal Surgeries: Patient denies: Abdominal Surgery, Splenectomy Reproductive Surgeries: Surgical HX of;: Tubal Ligation - Family History Family History: Reports;: Family Diabetes, Family Hypertension, Family Stroke - Social History Smoking Status: Never smoker Frequency of Alcohol Use: None Type of Drug Use: None Exam - Constitutional Vitals: Period Temp Pulse Resp BP Sys/Cabrera Pulse Ox Last 24 Hr 96.7 F-98.0 F 70-85 14-23 111-174/11-104 92-100 Results - Labs CBC & BMP: 03/21/17 15:47 03/21/17 04:30
[2017-03-21] MEDS: HEPARIN DRIP 25,000 UNITS/500 ML PREMIX IV SCH (16:41)
[2017-03-21 16:44] LABS: PT Patient Result 10.4 SECS
--- NOTE | 2017-03-21 17:42 | Hospitalist Progress Note ---
Hospitalist: Subjective Interval history: 36-year-old female was admitted with worsening left leg pain and swelling. She had an IVC filter during the last admit but was not started on anticoagulation due to GI Bleed. Ppatient seen in the ER for worsening leg pain. Exam of the lower extremities shows significant left lower extremity swelling. Venous Doppler ultrasound revealed significant worsening DVT with progressive occluding thrombosis in the left common femoral, superficial femoral, popliteal , and saphenous veins. She has history of peptic peptic ulcer disease with previous GI bleed, hematocrit has been stable during this admit. There is some risk of bleeding with IV heparin but benefit is much more in terms of treatment of her DVT and she is aware of this and agrees to go on IV heparin. We will go ahead and start on IV heparin and monitor closely for bleeding in the hospital. She is on twice daily Protonix for peptic ulcer disease. Appreciate vascular surgery and GI following her. Exam - Constitutional Vitals: Period Temp Pulse Resp BP Sys/C[place]rera Pulse Ox Last 24 Hr 96.7 F-98.6 F 70-87 14-23 111-174/11-104 92-100 Results - Labs CBC & BMP: 03/21/17 15:47 03/21/17 04:30
[2017-03-21] MEDS: DOCUSATE SODIUM 100 MG CAPSULE PO SCH (20:25)
[2017-03-21] MEDS: PANTOPRAZOLE 40 MG TABLET PO SCH (20:25)
[2017-03-21] MEDS: ATORVASTATIN 10 MG TABLET PO SCH (20:26)
[2017-03-21] MEDS: traZODone 50 MG TABLET PO SCH (20:26)
[2017-03-21] MEDS: ONDANSETRON 4 MG/2 ML VIAL IV PRN (21:55)
[2017-03-22] MEDS: SODIUM CHLORIDE 0.9% 1,000 ML IV SCH ×2 (06:37→20:40)
[2017-03-22 06:56] LABS: Basophils % 0.1 % (0.0-0.8); Hematocrit 30.4 VOL% (35.7-47.0); Hemoglobin 10.8 GM/DL (12.0-16.0); Immature Granulocytes % 0.8 %; Immature Granulocytes Absolute 0.18 #; Lymphocytes # 1.7 10*3/uL (1.4-4.0); Lymphocytes % 8.1 % (21.3-54.2); Mean Corpuscular HGB Conc 35.5 GM/DL (32-36); Mean Corpuscular Hemoglobin 36 PG (27-34); Mean Platelet Volume 11.9 FL (9.6-12.0); Monocytes # 1.9 10*3/uL (0.11-0.8); Monocytes % 8.9 % (1.7-12.7); Neutrophils # 17.5 10*3/uL (1.4-7.4); Neutrophils % 82.1 % (38.7-73.9); Platelet Count 122 T/CUMM (130-400); Red Blood Count 2.98 MC/CUMM (3.8-5.5); White Blood Count 21.3 T/CUMM (4-12)
[2017-03-22 07:24] LABS: Hypochromasia 1+; Lymphocytes 6 % (20-55); Platelet Estimate Normal; Segmented Neutrophils 82 % (50-85); Total Cells Counted 100
[2017-03-22 07:25] LABS: Giant Platelets Few
[2017-03-22 07:30] LABS: Albumin 3.7 G/DL (3.4-5.0); Bilirubin,Total 0.4 MG/DL (0.2-1.0); Calcium 8.8 MG/DL (8.5-10.1); Osmolality,Calculated 277.1 MOS/KG (273-304); Potassium 4.4 MMOL/L (3.5-5.1)
--- NOTE | 2017-03-22 08:02 | Gastrointestinal Progress Note ---
<Kimberly Plata Diana - Last Filed: 03/22/17 07:59> Assessment and Plan (1) Rectal bleed Status: Acute Assessment and plan: 03/22-no complaints of her bleeding. H&H is stable at 05/23. Continue to monitor for any bleeding as well as monitor H&H. Plan an addendum to followed by Dr. White. 03/21-admitted with left leg pain with findings of progressively occluding DVT, now on IV heparin therapy. Recent admission for anemia and GI bleeding with endoscopy, upper and lower, and small bowel follow-through studies noted as below. H&H unchanged from discharge lab in early February after 4 units of packed red blood cells during that prior hospitalization. Complaints of constipation and hemorrhoidal pain with defecation. Begin Anusol HC suppositories. Monitor H&H. Plan an addendum to follow Dr. White. Current Visit: Yes Gastroenterology - PN: Subj Interval history: CC: Rectal bleed Patient is seen awake and alert with family at bedside. States she rested well last night. Patient states that since the heparin infusion was initiated she is having less pain to her leg as well as less numbness. She denies any further overt bleeding at this time. Abdomen is soft, nontender. She has a good appetite and tolerating her diet well. H&H is stable at 05/23. Will continue to monitor for any overt bleeding with ongoing anticoagulation. ROS: Denies shortness breath or chest pain Exam (Progress Note) - Constitutional Vitals: Period Temp Pulse Resp BP Sys/Cabrera Pulse Ox Last 24 Hr 97.6 F-98.8 F 75-100 14-23 111-166/73-104 94-100 General appearance: normal weight, no acute distress - Head Head exam: Present: normal inspection, normocephalic - Eye Eye exam: Present: other (Lids and conjunctive are unremarkable). Absent: scleral icterus - ENT ENT exam: Present: normal exam, normal oropharynx - Neck Neck exam: Present: normal inspection - Respiratory Respiratory exam: Present: clear to auscultation bilaterally. Absent: rales, rhonchi, wheezes - Cardiovascular Cardiovascular exam: Present: regular rate and rhythm. Absent: diastolic murmur , JVD, systolic murmur - GI/Abdominal GI/Abdominal exam: Present: normal bowel sounds, soft. Absent: ascites, distended, mass, organomegaly, tenderness - Extremities Exam Extremities exam: Present: normal inspection, full ROM - Back Exam Back exam: Present: normal inspection - Neurological Exam Neurological exam: Present: alert, oriented X3 - Psychiatric Psychiatric exam: Present: normal affect, normal mood - Skin Skin exam: Present: normal color, warm, dry Results - Labs CBC & BMP: 03/22/17 06:45 03/22/17 06:45 Lab Results: I have reviewed the past 24 hour labs <Alexis White - Last Filed: 03/22/17 16:56> Exam (Progress Note) - Constitutional Vitals: Period Temp Pulse Resp BP Sys/C[place]rera Pulse Ox Last 24 Hr 97.6 F-100.1 F 93-110 18-22 128-170/79-97 94-97 Results - Labs CBC & BMP: 03/22/17 06:45 03/22/17 06:45
[2017-03-22] MEDS: PANTOPRAZOLE 40 MG TABLET PO SCH ×2 (09:18→20:34)
[2017-03-22] MEDS: amLODIPine 5 MG TABLET PO SCH (09:18)
[2017-03-22] MEDS: carBAMazepine 200 MG TABLET PO SCH ×2 (09:19→20:34)
[2017-03-22] MEDS: TOPIRAMATE 25 MG TABLET PO SCH ×2 (09:19→20:34)
[2017-03-22] MEDS: SULFAMETHOX/TRIMETHOPRIM 800-160 MG TABLET PO SCH ×2 (09:19→20:34)
[2017-03-22] MEDS: DOCUSATE SODIUM 100 MG CAPSULE PO SCH ×2 (09:19→20:34)
[2017-03-22] MEDS: INSULIN REGULAR 100 UNIT/ML SUBCUT SCH ×4 (09:21→22:17)
--- NOTE | 2017-03-22 09:21 | Event Note ---
Mrs. Wyatt's primary complaint is swelling and discomfort in her left leg and is clearly is swollen. I talked to Dr. Adriel Gomez about consideration for catheter directed thrombolysis of the left leg and he will evaluate and determine the appropriateness of that treatment later today
[2017-03-22] MEDS: ESCITALOPRAM 10 MG TABLET PO SCH (09:35)
--- NOTE | 2017-03-22 13:58 | Hospitalist Progress Note ---
Assessment and Plan (1) Deep vein thrombosis (DVT) of left lower extremity Status: Acute Assessment and plan: We will continue IV heparin. Dr. Ortega has seen the patient and plan to talk to Dr. Gomez in IR to consider catheter thrombolysis. Monitor PTT while patient is on IV heparin Current Visit: Yes (2) HTN (hypertension) Status: Chronic Assessment and plan: Continue current antihypertensive recent blood pressure reading is above optimal will follow Current Visit: No (3) Acute kidney injury Status: Acute Assessment and plan: Patient has underlying CKD but now presented with a HPI and has been worsening creatinine up to 2.4 today. I will obtain urinalysis urine electrolytes on renal ultrasound from evaluation I will also check and get bladder scan while ultrasound being done. Avoid nephrotoxins Current Visit: No (4) Anemia Status: Acute Assessment and plan: Patient has a stable anemia and no overt bleeding will keep follow Current Visit: No (5) Leukocytosis Status: Acute Assessment and plan: I am not sure what his cause of leukocytosis at present patient has no fever or any sign suggestive of infection. I will still go ahead and get blood cultures urine cultures urinalysis and chest x-ray. The leukocytosis be quite possible from the DVT itself she has extensive DVT. I will hold on antibiotic use for now and follow the culture unless she develops some focal symptoms or febrile Current Visit: Yes Hospitalist: Subjective Interval history: Ms. Grove is 56-year-old female with history of hypertension anxiety disorder seizure rheumatoid arthritis. She was recently admitted for GI bleed required transfusion she had extended workup at that time. She had EGD which showed superficial antral gastric ulcer and then a colonoscopy which showed colon polyps (tubular adenoma) and diverticulosis. She also had a small bowel follow-through done which showed no acute findings. At that time on 02/21/2017 she was also diagnosed to have occluded left superficial femoral vein . She had the IVC filter placed at that time. She stated that she did not have any swelling at that time and it was diagnosed due to left leg pain. Tuesday night which is unlike before she started having swelling and was not progressively worse with time silk return to the evaluation to ER and here repeat Doppler studies revealed occlusive DVT involving the vein in the left lower extremities with: Progressive occluding thrombosis in the left common femoral,superficial femoral, popliteal, and saphenous veins. There is only minimal flow noted in the superficial femoral and popliteal veins. He was started on IV heparin yesterday she has no history of melena hematochezia and her hemoglobin and hematocrit had been stable She continued to have left leg pain. No fever cough or dysuria reported although she has reported her urine output has been poor. Exam - Constitutional Vitals: Period Temp Pulse Resp BP Sys/C[place]rera Pulse Ox Last 24 Hr 97.6 F-98.8 F 87-101 18-22 128-164/74-97 94-97 General appearance: no acute distress, morbidly obese - Respiratory Respiratory exam: Present: clear to auscultation bilaterally. Absent: rales, rhonchi - Cardiovascular Cardiovascular exam: Present: regular rate and rhythm. Absent: tachycardia - GI/Abdominal GI/Abdominal exam: Present: normal bowel sounds, soft. Absent: distended, tenderness - Extremities Exam Extremities exam: Present: edema (Left lower extremity swelling including thigh and leg no tenderness) - Neurological Exam Neurological exam: Present: alert, oriented X3 Results - Labs CBC & BMP: 03/22/17 06:45 03/22/17 06:45 Lab Results: I have reviewed the past 24 hour labs
--- NOTE | 2017-03-22 14:55 | XRay Report ---
XR chest 1V portable Indication: Leukocytosis Comparison: Chest x-ray dated February 21, 2017 Technique: Single frontal view of the chest. Findings: The cardiomediastinal silhouette is stable in configuration. Mild cardiomegaly. Chronic change of the lungs without focal consolidation, pleural effusion, or pneumothorax. Visualized osseous and surrounding soft tissue structures appear grossly unchanged. IMPRESSION: No acute cardiopulmonary process demonstrated. PROCEDURE INTERPRETED AT [facility] DEPARTMENT OF RADIOLOGY Final Report Signed by: Dr Augustine Madrigal
[2017-03-22] MEDS: ONDANSETRON 4 MG/2 ML VIAL IV PRN (15:35)
--- NOTE | 2017-03-22 15:37 | Ultrasound Report ---
US renal Bilateral Indication: Acute kidney injury. Comparison: None. Technique: Using transcutaneous probe, routine renal ultrasound was performed. Ultrasound images were captured and stored. Findings: Right kidney is not well visualized. As measured, the length is 8.2 cm. Left kidney is not well visualized. Length is 8.4 cm. There is a suggested cortical lesion that's hypoechoic the visualized portion of the left renal cortex, there is some suggested through transmission this may simply reflect cyst in the setting of inadequate gain setting. This lesion measures 2.5 x 1.8 x 2.2 cm. Impression: 1. Probable left renal cyst. 2. Poorly visualized kidneys limits evaluation. 03/22/2017 3:33 PM PROCEDURE INTERPRETED AT [facility] DEPARTMENT OF RADIOLOGY Final Report Signed by: Dr. Carson Sterling
[2017-03-22] MEDS: ACETAMINOPHEN 325 MG TABLET PO PRN (16:00)
[2017-03-22] MEDS ORDERED: ACETAMINOPHEN 325 MG TABLET ONE (16:05)
[2017-03-22 16:11] LABS: Bacteria,Urine Occasional /HPF (Few); Bilirubin,Urine Negative (Negative); Blood, Urine NEGATIVE (Negative); Glucose,Urine (UA) Negative (Negative); Ketones,Urine Negative (Negative); Nitrite,Urine Negative (Negative); Protein,Urine Negative; RBC,Urine 1 /HPF (0-4); Squamous Epithelial Cell,Urine Occasional /HPF (0-10); Urine Color Yellow (Yellow); Urine Specific Gravity 1.015 (1.001-1.035); WBC,Urine 2 /HPF (0-6)
[2017-03-22 16:16] LABS: Apearance,Urine CLEAR (Clear); Urine Urobilinogen 0.2 EU/DL (0.2-1.0)
[2017-03-22] MEDS: HEPARIN DRIP 25,000 UNITS/500 ML PREMIX IV SCH ×2 (18:03→23:43)
--- NOTE | 2017-03-22 18:29 | Event Note ---
The patient reportedly is better after initialization of heparin. The left leg is swollen but there is improved movement and decreased pain according to the patient when compared to one day previously. Only imaging we have is ultrasound. The patient had IVC filter placed a few weeks ago. The patient cannot have IV contrast. We will get an abdomen pelvis CT without contrast ( suboptimal) to hopefully evaluate the IVC filter position and possibility of intra-abdominal or pelvic DVT. Will reassess after imaging. If there is iliofemoral DVT, catheter directed thrombolysis would be likely of benefit. There is femoropopliteal DVT, systemic heparinization may be the best option in this patient. We'll continue to follow clinically to see if there is continued improvement with IV heparin alone. Possibility of bleeding remains high for this patient - especially if TPA is administered. Patient and family aware of the plan.
--- NOTE | 2017-03-22 19:39 | CT Report ---
CT abdomen pelvis wo con Indication: Left lower extremity deep venous thrombosis. Evaluation of IVC filter and evaluation for thrombus. Comparison: None. Technique: CT of the abdomen and pelvis was performed without administration of intravenous contrast. The CT examination was performed using one or more of the following dose reduction techniques: Automatic exposure control, adjustment of the mA and kV according to patient size, use of acute or iterative reconstruction techniques. Findings: The left common femoral vein is enlarged and demonstrates hyperdense material and stranding along the surface of the vein. There may be minimal enlargement of the external iliac vein within the lower pelvis adjacent to inguinal canal. The appearance is likely reflective of thrombus. The proximal/cephalad extent of thrombus is difficult to determine. Inferior vena cava is flat in appearance and demonstrates no distinct evidence of hyperdense thrombus. IVC filter lies at the level of the renal veins with legs extending into the left main renal vein. The left kidney demonstrates a hypoattenuating cortical lesion measuring 2.2 cm compatible with cyst. No acute findings are noted within the lower chest. Solid organs of the abdomen demonstrate no significant abnormality. Small and large bowel demonstrate no significant abnormality. No acute intrapelvic findings are noted. Osseous structures demonstrate no evidence of acute pathology. Degenerative changes of the lumbar spine are [id number]. Impression: 1. Venous thrombus is demonstrated within the femoral vein and propagates in a cephalad manner at least into the distal external iliac vein. The exact proximal extent is somewhat difficult to determine. 2. IVC filter is present at the level of the renal veins. 3. The inferior vena cava is flat in appearance without distinct evidence of thrombus. 03/22/2017 7:29 PM PROCEDURE INTERPRETED AT [facility] DEPARTMENT OF RADIOLOGY Final Report Signed by: Dr. Carson Sterling
[2017-03-22] MEDS: traZODone 50 MG TABLET PO SCH (20:34)
[2017-03-22] MEDS: ATORVASTATIN 10 MG TABLET PO SCH (20:34)
[2017-03-23 01:46] LABS: Basophils % 0.1 % (0.0-0.8); Hemoglobin 10.2 GM/DL (12.0-16.0); Immature Granulocytes Absolute 0.27 #; Lymphocytes # 1.9 10*3/uL (1.4-4.0); Lymphocytes % 7.1 % (21.3-54.2); Mean Corpuscular HGB Conc 36.4 GM/DL (32-36); Mean Corpuscular Hemoglobin 37 PG (27-34); Mean Corpuscular Volume 100.7 FL (87-102); Mean Platelet Volume 12.4 FL (9.6-12.0); Monocytes # 1.6 10*3/uL (0.11-0.8); Monocytes % 5.9 % (1.7-12.7); Neutrophils # 23.3 10*3/uL (1.4-7.4); Neutrophils % 85.9 % (38.7-73.9); Platelet Count 132 T/CUMM (130-400); Red Blood Count 2.78 MC/CUMM (3.8-5.5); White Blood Count 27.1 T/CUMM (4-12)
[2017-03-23 02:51] LABS: Calcium 8.1 MG/DL (8.5-10.1); Osmolality,Calculated 270.5 MOS/KG (273-304); Potassium 4.7 MMOL/L (3.5-5.1)
[2017-03-23 04:03] LABS: Lymphocytes 5 % (20-55); Platelet Estimate Decreased; Segmented Neutrophils 92 % (50-85); Total Cells Counted 100
[2017-03-23] MEDS: SODIUM CHLORIDE 0.9% 1,000 ML IV SCH ×3 (05:16→23:41)
--- NOTE | 2017-03-23 08:23 | Hospitalist Progress Note ---
Assessment and Plan (1) Deep vein thrombosis (DVT) of left lower extremity Status: Acute Assessment and plan: Noted that the patient has DVT extend into external iliac vein. She is on heparin continue monitor PTT and adjust dose. I are evaluating him to possible catheter directed thrombolysis. Current Visit: Yes (2) HTN (hypertension) Status: Chronic Assessment and plan: Continue current antihypertensive. Recent blood pressure readings shows it is controlled Current Visit: No (3) Acute kidney injury Status: Acute Assessment and plan: Patient has underlying CKD but now presented with MC and has been worsening creatinine up to 2.7 today. Urinalysis is bland renal ultrasound was not done but abdominal CT did not reveal any hydronephrosis. MC is probably multifactorial with the blocking of the renal vein by the IVC and volume depletion contributing. In addition there is some contribution from Bactrim as I was reviewing the medication found it patient has been on Bactrim. When I asked patient she says she was not taking Bactrim at home this was her old medication was started on admission. I will stop that and continue with IV fluid monitor volume status, input output. Avoid nephrotoxins. There is mild acidosis based on chemistry which either could be renal failure but patient is on Topamax and this may be contributing . Pt is on tramadol as needed I will stop it although this is not enough toxin but it may have adverse effect with renal failure patient is already on hydrocodone as needed for pain. I will consult renal for giving their input and for close follow-up Current Visit: No (4) Anemia Status: Acute Assessment and plan: Patient has grossly stable anemia and no overt bleeding will keep follow Current Visit: No (5) Leukocytosis Status: Acute Assessment and plan: Cause of leukocytosis is not clear blood and urine cultures been obtained there is no apparent focal symptoms. This could be just a stress response but I will check pro calcitonin also. Will hold on starting antibiotics as patient is currently afebrile Current Visit: Yes Hospitalist: Subjective Interval history: Patient had one episode of 100.1F temp yesterday. Febrile this morning no acute symptoms. Patient underwent CT abdomen pelvis yesterday which revealed that the IVC filter is present in the level of renal vein and the venous thrombosis extending from the MRN into the distal external iliac vein Exam - Constitutional Vitals: Period Temp Pulse Resp BP Sys/Cabrera Pulse Ox Last 24 Hr 98.2 F-100.1 F 101-110 18-20 120-170/71-97 93-98 General appearance: no acute distress, morbidly obese - Respiratory Respiratory exam: Present: clear to auscultation bilaterally. Absent: rales, rhonchi - Cardiovascular Cardiovascular exam: Present: regular rate and rhythm. Absent: tachycardia - GI/Abdominal GI/Abdominal exam: Present: normal bowel sounds, soft. Absent: distended, tenderness - Extremities Exam Extremities exam: Present: edema (Left lower extremity swelling including thigh and leg no tenderness) - Neurological Exam Neurological exam: Present: alert, oriented X3 Results - Labs CBC & BMP: 03/23/17 01:01 03/23/17 01:01 Lab Results: I have reviewed the past 24 hour labs
[2017-03-23] MEDS: amLODIPine 5 MG TABLET PO SCH (08:27)
[2017-03-23] MEDS: carBAMazepine 200 MG TABLET PO SCH ×2 (08:27→21:24)
[2017-03-23] MEDS: TOPIRAMATE 25 MG TABLET PO SCH ×2 (08:27→21:24)
--- NOTE | 2017-03-23 09:44 | Gastrointestinal Progress Note ---
Assessment and Plan (1) Rectal bleed Status: Acute Assessment and plan: 03/23-no overt bleeding however no bowel movement in several days. H&H remains stable. No abdominal pain. Continue to monitor present time. Plan an addendum to follow by Dr. White. 03/22-no complaints of her bleeding. H&H is stable at 05/23. Continue to monitor for any bleeding as well as monitor H&H. Plan an addendum to followed by Dr. White. 03/21-admitted with left leg pain with findings of progressively occluding DVT, now on IV heparin therapy. Recent admission for anemia and GI bleeding with endoscopy, upper and lower, and small bowel follow-through studies noted as below. H&H unchanged from discharge lab in early February after 4 units of packed red blood cells during that prior hospitalization. Complaints of constipation and hemorrhoidal pain with defecation. Begin Anusol HC suppositories. Monitor H&H. Plan an addendum to follow Dr. White. Current Visit: Yes Gastroenterology - PN: Subj Interval history: CC: Anemia, DVT Patient is seen awake and alert with family at bedside. States she did rest well last night and denies any abdominal pain, nausea or vomiting. She is tolerating her diet well at present time. States she is having some improvements in the pain in her leg. Abdomen is soft, nontender. States that she has not had a bowel movement in several days however feels like she can do this today without the help of a laxative. No overt bleeding noted. H&H is stable at 05/21. MiraLAX is ordered as needed for constipation. ROS: Denies shortness of breath or chest pain Exam (Progress Note) - Constitutional Vitals: Period Temp Pulse Resp BP Sys/Cabrera Pulse Ox Last 24 Hr 97.4 F-100.1 F 101-111 18-20 120-170/71-97 93-99 General appearance: normal weight, no acute distress - Head Head exam: Present: normal inspection, normocephalic - Eye Eye exam: Present: other (Lids and conjunctive are unremarkable). Absent: scleral icterus - ENT ENT exam: Present: normal exam, normal oropharynx - Neck Neck exam: Present: normal inspection - Respiratory Respiratory exam: Present: clear to auscultation bilaterally. Absent: rales, rhonchi, wheezes - Cardiovascular Cardiovascular exam: Present: regular rate and rhythm. Absent: diastolic murmur , JVD, systolic murmur - GI/Abdominal GI/Abdominal exam: Present: normal bowel sounds, soft. Absent: ascites, distended, mass, organomegaly, tenderness - Extremities Exam Extremities exam: Present: normal inspection, full ROM - Back Exam Back exam: Present: normal inspection - Neurological Exam Neurological exam: Present: alert, oriented X3 - Psychiatric Psychiatric exam: Present: normal affect, normal mood - Skin Skin exam: Present: normal color, warm, dry Results - Labs CBC & BMP: 03/23/17 01:01 03/23/17 01:01 Lab Results: I have reviewed the past 24 hour labs
--- NOTE | 2017-03-23 10:00 | Event Note ---
Today, the left leg again is similarly enlarged/swollen compared to the right. There is tenderness at the knee and above the knee to palpation. There is 3+ pitting edema throughout the left leg. However, the patient does report that left lower extremity pain is improved and there is less pain with motion today than previously. There is no suggestion of internal bleeding related to anticoagulation at this time. Reviewing the CT images there is question of dilated left external iliac vein. Lack of intravenous contrast limits evaluation. Given these findings, potentially a May Thurner process is occurring with obstruction near the left common iliac vein. This may require angioplasty and stenting. Noncontrast CT images otherwise suggest unremarkable/collapsed appearance of the IVC and right iliac veins. IVC filter is noted in place and is positioned very near the renal veins. The study is limited due to lack of intravenous contrast. Unfortunately, the patient's renal function continues to worsen and creatinine is up to 2.7 today from 2.4. I believe this patient may benefit from catheter directed thrombolysis throughout the left iliofemoral venous structures with possible angioplasty and stenting if a May Thurner process is confirmed with venography. However, the thrombolysis will require IV contrast and will cause hemolysis, both of which could further stress the kidneys. Thrombolysis is not emergent, so for now we will hold off on any catheter directed therapy until the renal consult is completed.
--- NOTE | 2017-03-23 10:37 | Event Note ---
Ms. Wyatt subjectively feels that her leg is better today is still significantly swollen we do have iliofemoral and popliteal thrombosis. It is interesting on the CT that her vena cava is complete completely collapsed as are the renal veins but this is not suggest that there is an actual thrombus in the vena cava. I agree with Dr. Gomez that if we can correct her renal function that catheter directed thrombolyzes and if necessary iliac angioplasty and stenting may be appropriate for her. I agree that there is no urgency to performing that at this point in time and it is important that we try to correct the renal function
[2017-03-23] MEDS: PANTOPRAZOLE 40 MG TABLET PO SCH ×2 (11:25→21:24)
[2017-03-23] MEDS: ESCITALOPRAM 10 MG TABLET PO SCH (11:25)
[2017-03-23] MEDS: DOCUSATE SODIUM 100 MG CAPSULE PO SCH ×2 (11:25→21:24)
--- NOTE | 2017-03-23 14:45 | Nephrology Consult Note ---
History of Present Illness Chief complaint: Renal failure History of present illness: Ms. Wyatt is a 56 year old female admitted with DVT of the left leg. Has mild chronic renal insufficiency which has worsened since admission. She was recently hospitalized with DVT and GI bleed. Anticoagulant was not started because of bleeding. IVC filter was placed. She was readmitted with worsening swelling of the left leg. She is currently anticoagulated. Denies dysuria or hematuria. No shortness of breath. Home Medications Medication Instructions Recorded Confirmed Type Escitalopram [Lexapro] 20 mg PO DAILY 07/09/16 03/21/17 History NIFEdipine XL TAB [Procardia Xl] 60 mg PO DAILY 07/09/16 03/21/17 History Topiramate 50 mg PO BID 07/09/16 03/21/17 History carBAMazepine [Carbatrol] 200 mg PO BID 07/09/16 03/21/17 History traZODone [Desyrel] 50 mg PO BEDTIME 07/09/16 03/21/17 History Albuterol Inhaler [Proventil 2 puff INH Q4H PRN #1 inhaler 07/18/16 03/21/17 Rx Inhaler] Atorvastatin [Lipitor] 10 mg PO BEDTIME 02/21/17 03/21/17 History Tizanidine HCl 4 mg PO Q8H PRN 02/21/17 03/21/17 History Tramadol HCl [Tramadol Tab] 50 mg PO Q6H PRN 02/21/17 03/21/17 History HYDROcodone/ACETAMIN 5-325 [Ross 1 tablet PO Q4H #20 tablet 02/26/17 03/21/17 Rx 5-325] Pantoprazole Tab [Protonix Tab] 40 mg PO DAILY #30 tablet 02/26/17 03/21/17 Rx Sulfameth/Trimeth 800-160 Tab 1 tablet PO BID #14 tablet 02/26/17 03/21/17 Rx [Bactrim DS Tab] amLODIPine [Norvasc] 5 mg PO DAILY #30 tablet 02/26/17 03/21/17 Rx Allergies Allergy/AdvReac Type Severity Reaction Status Date / Time Penicillins Allergy Intermediate RASH Verified 03/21/17 04:41 Medical,Surgical,& Family Hx - Medical History Cardio: History of: Hypertension No history of: Aneurysm, Cardiac Dysrhythmia, Cerebrovascular Disease, Congenital Heart Disease, CHF, CAD, MD, Pacemaker, PVD, Valvular Heart Disease, Cardiovascular Problems Psychological: History of: Anxiety Disorders Neurology: History of: Seizures No history of: Brain Aneurysm, Cerebral Hemorrhage, Cerebrovascular Accident , Cerebral Palsy, Dementia, Migraine, Multiple Sclerosis, Parkinson's Disease, Peripheral Neuropathy, TIA, Vertigo, Neurologocal Cancer HEENT: History of: Ear Problem ("cant hear good"), Eye Problem ("difficulty seeing") Endocrine: History of: Thyroid Disorder No history of: Dyslipidemia Rheumatology: History of;: Rheumatoid Arthritis Respiratory: No history of: Asthma, Bronchitis, COPD, Intubation, Obstructive Sleep Apnea , Pulmonary Embolism, Pulmonary Hypertension, Pneumonia, Lung Cancer, Respiratory Problems Hematology: History of: Anemia, Clotting Problems No history of: Bleeding Problems, Sickle Cell Disease, Hematologic Cancer, Blood Disorders - Surgical History Cardiac Surgeries: Patient Denies: Femoral-Popliteal Bypass Graft, Cardiac Catheterization, Cardiac Surgery, Carotid Endarterectomy, Internal Defibrillator, Vascular Access Devices Thoracic Surgeries: Patient denies;: Organ Transplant, Lobectomy Neurologic Surgeries: Patient denies: Brain Aneurysm, Cerebral Hemorrhage, Neurologic Surgery HEENT Surgeries: Patient denies: Carotid Endarterectomy, Eye Surgery, Thyroid Surgery, Tonsilectomy & Adenoidectomy Abdominal Surgeries: Patient denies: Abdominal Surgery, Splenectomy Reproductive Surgeries: Surgical HX of;: Tubal Ligation - Family History Family History: Reports;: Family Diabetes, Family Hypertension, Family Stroke - Social History Smoking Status: Never smoker Frequency of Alcohol Use: None Type of Drug Use: None Review of Systems 12 point system: reviewed and no additional remarkable complaints except as stated Exam - Vital Signs Vital signs: Period Temp Pulse Resp BP Sys/Cabrrea Pulse Ox Last 24 Hr 97.4 F-100.1 F 107-118 18-20 119-170/66-90 93-99 Exam: Gen.: Alert and oriented x3. ENT: Pupils equal round reactive to light. EOMs intact. Mucous membranes moist. Neck: Supple. No JVD or bruit. Cardiovascular: Regular rate and rhythm. No murmur rub or gallop Lungs: Clear Abdomen: Soft. Nontender. Positive bowel sounds. No organomegaly Extremities: 1-2+ left leg edema Results - Labs CBC & BMP: 03/23/17 01:01 03/23/17 01:01 Assessment and Plan (1) Chronic renal failure Status: Acute Assessment and plan: 6-year-old woman with: * CRF. Baseline creatinine 1.6 * ARF. Agree with discontinuation of Bactrim. Continue IV fluid. No other nephrotoxic medications. IVC filter is very near renal veins; however no renal vein thrombosis noted on CT * DVT, left leg * Hypertension * Seizure disorder * Cerebrovascular disease Current Visit: No (2) Deep vein thrombosis (DVT) of left lower extremity Status: Acute Current Visit: Yes (3) Leukocytosis Status: Acute Current Visit: Yes (4) Acute kidney injury Status: Acute Current Visit: No (5) Partial epilepsy Status: Acute Current Visit: No (6) HTN (hypertension) Status: Chronic Current Visit: No (7) History of CVA (cerebrovascular accident) Status: Chronic Current Visit: No
[2017-03-23] MEDS: INSULIN REGULAR 100 UNIT/ML SUBCUT SCH (15:18)
--- NOTE | 2017-03-23 18:25 | Event Note ---
Patient seen and examined today with Kimberly RAMSEY.. Will not let me cosign her note currently due to updates that of been persisting now for several minutes. No complaints of bleeding reported continue treatment for DVT ongoing. Abdomen soft nondistended nontender Agree with additional history and physical findings per Kimberly RAMSEY's note on the same day that I cannot currently cosign due to a computer issue. We will continue to monitor.
[2017-03-23 19:28] LABS: Potassium,Urine Random 35 MMOL/L
[2017-03-23] MEDS: ONDANSETRON 4 MG/2 ML VIAL IV PRN (21:15)
[2017-03-23] MEDS: HEPARIN DRIP 25,000 UNITS/500 ML PREMIX IV SCH (21:16)
[2017-03-23] MEDS: ATORVASTATIN 10 MG TABLET PO SCH (21:24)
[2017-03-23] MEDS: traZODone 50 MG TABLET PO SCH (21:24)
[2017-03-24] MEDS: SODIUM CHLORIDE 0.9% 1,000 ML IV SCH ×4 (03:21→17:29)
[2017-03-24 07:01] LABS: Basophils % 0.1 % (0.0-0.8); Hematocrit 26.5 VOL% (35.7-47.0); Hemoglobin 9.6 GM/DL (12.0-16.0); Immature Granulocytes % 2.2 %; Immature Granulocytes Absolute 0.69 #; Lymphocytes # 1.8 10*3/uL (1.4-4.0); Lymphocytes % 5.9 % (21.3-54.2); Mean Corpuscular HGB Conc 36.2 GM/DL (32-36); Mean Corpuscular Hemoglobin 36 PG (27-34); Mean Corpuscular Volume 100.4 FL (87-102); Mean Platelet Volume 12.3 FL (9.6-12.0); Monocytes # 1.3 10*3/uL (0.11-0.8); Monocytes % 4.3 % (1.7-12.7); Neutrophils # 27.2 10*3/uL (1.4-7.4); Neutrophils % 87.5 % (38.7-73.9); Platelet Count 163 T/CUMM (130-400); Red Blood Count 2.64 MC/CUMM (3.8-5.5); White Blood Count 31.1 T/CUMM (4-12)
[2017-03-24 07:48] LABS: Elliptocytes Few; Giant Platelets Few; Hypochromasia 1+; Lymphocytes 11 % (20-55); Platelet Estimate Normal; Segmented Neutrophils 85 % (50-85); Total Cells Counted 100
[2017-03-24 08:17] LABS: Calcium 8.1 MG/DL (8.5-10.1); Osmolality,Calculated 271.5 MOS/KG (273-304); Potassium 4.3 MMOL/L (3.5-5.1)
--- NOTE | 2017-03-24 08:18 | Hospitalist Progress Note ---
Assessment and Plan (1) Deep vein thrombosis (DVT) of left lower extremity Status: Acute Assessment and plan: Patient remained on IV heparin. Interventional radiology following to consider catheter directed thrombolysis. Patient has acute kidney injury preventing use of contrast. Renal following Current Visit: Yes (2) HTN (hypertension) Status: Chronic Assessment and plan: controlled Current Visit: No (3) Acute kidney injury Status: Acute Assessment and plan: Patient has underlying CKD but now presented with MC and has been worsening creatinine today's labs pending . Urinalysis is bland renal ultrasound was not done but abdominal CT did not reveal any hydronephrosis. Patient is off Bactrim and on IV fluids. Repeat BMP ordered renal following Current Visit: No (4) Anemia Status: Acute Assessment and plan: History of GI bleed recently hemoglobin is only touchdown from yesterday but no history of hematochezia melena continue monitor Current Visit: No (5) Leukocytosis Status: Acute Assessment and plan: WBC count continue to increase I had ordered pro-calcitonin level. Blood cultures urine culture so far negative. Patient is afebrile. Due to continued rise of white count I will empirically start an antibiotic . cultures and Procalcitonin to be followed up. I will be off service after today and will sign out to hospitalist rounding tomorrow Current Visit: Yes (6) Seizure disorder Status: Acute Assessment and plan: Patient had breakthrough seizure yesterday carbamazepine level was obtained. Neurology consulted Current Visit: Yes Hospitalist: Subjective Interval history: Patient remained afebrile no more seizure reported overnight. Denies any abdominal pain melena cough or urinary symptoms. She is eating well and voiding without any urinary symptoms. Left leg is still swollen Exam - Constitutional Vitals: Period Temp Pulse Resp BP Sys/Cabrera Pulse Ox Last 24 Hr 97.8 F-99.2 F 114-120 18-20 111-151/66-81 93-96 General appearance: no acute distress, morbidly obese - Respiratory Respiratory exam: Present: clear to auscultation bilaterally. Absent: rales, rhonchi - Cardiovascular Cardiovascular exam: Present: regular rate and rhythm. Absent: tachycardia - GI/Abdominal GI/Abdominal exam: Present: normal bowel sounds, soft. Absent: distended, tenderness - Extremities Exam Extremities exam: Present: edema (Left lower extremity swelling including thigh and leg no tenderness) - Neurological Exam Neurological exam: Present: alert, oriented X3 Results - Labs CBC & BMP: 03/24/17 06:18 03/23/17 01:01 Lab Results: I have reviewed the past 24 hour labs
[2017-03-24] MEDS: PANTOPRAZOLE 40 MG TABLET PO SCH ×2 (08:26→22:00)
[2017-03-24] MEDS: TOPIRAMATE 25 MG TABLET PO SCH ×2 (08:26→21:59)
[2017-03-24] MEDS: carBAMazepine 200 MG TABLET PO SCH ×2 (08:26→21:59)
[2017-03-24] MEDS: ESCITALOPRAM 10 MG TABLET PO SCH (08:27)
[2017-03-24] MEDS: DOCUSATE SODIUM 100 MG CAPSULE PO SCH ×2 (08:27→22:00)
[2017-03-24] MEDS ORDERED: LEVOFLOXACIN INJ 500 MG in PREMIX 1 EACH IV ONE (08:27)
[2017-03-24] MEDS: amLODIPine 5 MG TABLET PO SCH (08:27)
[2017-03-24] MEDS: BISACODYL 5 MG TABLET PO PRN ×2 (08:27→22:00)
[2017-03-24] MEDS ORDERED: VANCOMYCIN INJ 1,500 MG in SODIUM CHLORIDE 0.9% 500 ML IV ONE (09:00)
--- NOTE | 2017-03-24 09:09 | Gastrointestinal Progress Note ---
<Kimberly Plata Diana - Last Filed: 03/24/17 09:06> Assessment and Plan (1) Rectal bleed Status: Acute Assessment and plan: 03/25-No overt bleeding. No bowel movement today. Dulcolax given. Plan and addendum to follow by Dr White. 03/23-no overt bleeding however no bowel movement in several days. H&H remains stable. No abdominal pain. Continue to monitor present time. Plan an addendum to follow by Dr. White. 03/22-no complaints of her bleeding. H&H is stable at 05/23. Continue to monitor for any bleeding as well as monitor H&H. Plan an addendum to followed by Dr. White. 03/21-admitted with left leg pain with findings of progressively occluding DVT, now on IV heparin therapy. Recent admission for anemia and GI bleeding with endoscopy, upper and lower, and small bowel follow-through studies noted as below. H&H unchanged from discharge lab in early February after 4 units of packed red blood cells during that prior hospitalization. Complaints of constipation and hemorrhoidal pain with defecation. Begin Anusol HC suppositories. Monitor H&H. Plan an addendum to follow Dr. White. Current Visit: Yes Gastroenterology - PN: Subj Interval history: CC: DVT, GI bleed Pt is seen awake and alert lying in bed with family at side. States that she is feeling about the same with continued pain in her leg. She has not had a bowel movement as of yet but Dulcolax was given this morning. Denies any abdominal pain, nausea or vomiting. No reports of overt bleeding. Abdomen is soft, nontender. ROS: Denies SOB or chest pain Exam (Progress Note) - Constitutional Vitals: Period Temp Pulse Resp BP Sys/Cabrera Pulse Ox Last 24 Hr 97.8 F-99.2 F 114-120 18-20 111-151/66-81 93-96 General appearance: normal weight, no acute distress - Head Head exam: Present: normal inspection, normocephalic - Eye Eye exam: Present: other (lids and conjuncitva unremarkable). Absent: scleral icterus - ENT ENT exam: Present: normal exam, normal oropharynx - Neck Neck exam: Present: normal inspection - Respiratory Respiratory exam: Present: clear to auscultation bilaterally. Absent: rales, rhonchi, wheezes - Cardiovascular Cardiovascular exam: Present: regular rate and rhythm. Absent: diastolic murmur , JVD, systolic murmur - GI/Abdominal GI/Abdominal exam: Present: normal bowel sounds, soft. Absent: ascites, distended, mass, organomegaly, tenderness - Extremities Exam Extremities exam: Present: normal inspection, full ROM - Back Exam Back exam: Present: normal inspection - Neurological Exam Neurological exam: Present: alert, oriented X3 - Psychiatric Psychiatric exam: Present: normal affect, normal mood - Skin Skin exam: Present: normal color, warm, dry Results - Labs CBC & BMP: 03/24/17 06:18 03/24/17 06:15 Lab Results: I have reviewed the past 24 hour labs <Alexis White - Last Filed: 03/24/17 18:25> Exam (Progress Note) - Constitutional Vitals: Period Temp Pulse Resp BP Sys/Cabrera Pulse Ox Last 24 Hr 98 F-99.1 F 107-120 18-20 116-151/65-83 91-98 Results - Labs CBC & BMP: 03/24/17 06:18 03/24/17 06:15
--- NOTE | 2017-03-24 11:43 | Nephrology Progress Note ---
Nephrology - PN: Subj Interval history: No shortness of breath or GI symptoms. No significant pain left leg. She has been afebrile Exam (PN)-Nephrology - Vital Signs Vital signs: Period Temp Pulse Resp BP Sys/Cabrera Pulse Ox Last 24 Hr 97.8 F-99.1 F 110-120 18-20 111-151/66-83 93-98 Exam: ENT: Normal Cardiovascular: Regular rate and rhythm. No murmur rub or gallop Lungs: Clear Extremities: 2+ left leg edema - Lab 03/24/17 06:18 03/24/17 06:15 Most recent lab results Calcium 8.1 MG/DL (8.5-10.1) L 03/24/17 06:15 Assessment and Plan (1) Chronic renal failure Status: Acute Assessment and plan: 6-year-old woman with: * CRF. Baseline creatinine 1.6 * ARF. Agree with discontinuation of Bactrim. Continue IV fluid. No other nephrotoxic medications. IVC filter is very near renal veins; however no renal vein thrombosis noted on CT. Creatinine is slightly higher today. One dose vancomycin has been given. Urine and blood cultures negative. * DVT, left leg. On heparin * Hypertension * Seizure disorder * Cerebrovascular disease Current Visit: No (2) Deep vein thrombosis (DVT) of left lower extremity Status: Acute Current Visit: Yes (3) Leukocytosis Status: Acute Current Visit: Yes (4) Acute kidney injury Status: Acute Current Visit: No (5) Partial epilepsy Status: Acute Current Visit: No (6) HTN (hypertension) Status: Chronic Current Visit: No (7) History of CVA (cerebrovascular accident) Status: Chronic Current Visit: No
[2017-03-24] MEDS: ONDANSETRON 4 MG/2 ML VIAL IV PRN (14:09)
--- NOTE | 2017-03-24 14:24 | Neurology Consult Note ---
History of Present Illness History of present illness: Ms. Wyatt is a 56 year old -[place] lady with past medical history significant for anemia who was hospitalized recently for GI bleed anemia required transfusion that was subsequently had a venous Doppler that showed a DVT. She was not started on anticoagulation because she was actively having a gastrointestinal bleed. She had IVC filter placed on February 22. She had a negative VQ scan and found to have a multinodular goiter by thyroid scan. Patient has been doing well the past few weeks. However she reported that she had 2 seizures including one yesterday in the hospital. Nurses reported that she was just shaking mildly in both upper extremities as well as eyes rolled upwards lasted for 45 seconds and then resolved. It took her 10-15 minutes to come back to reality. Patient has been taking Tegretol and Topamax Home Medications Medication Instructions Recorded Confirmed Type Escitalopram [Lexapro] 20 mg PO DAILY 07/09/16 03/21/17 History NIFEdipine XL TAB [Procardia Xl] 60 mg PO DAILY 07/09/16 03/21/17 History Topiramate 50 mg PO BID 07/09/16 03/21/17 History carBAMazepine [Carbatrol] 200 mg PO BID 07/09/16 03/21/17 History traZODone [Desyrel] 50 mg PO BEDTIME 07/09/16 03/21/17 History Albuterol Inhaler [Proventil 2 puff INH Q4H PRN #1 inhaler 07/18/16 03/21/17 Rx Inhaler] Atorvastatin [Lipitor] 10 mg PO BEDTIME 02/21/17 03/21/17 History Tizanidine HCl 4 mg PO Q8H PRN 02/21/17 03/21/17 History Tramadol HCl [Tramadol Tab] 50 mg PO Q6H PRN 02/21/17 03/21/17 History HYDROcodone/ACETAMIN 5-325 [Inchelium 1 tablet PO Q4H #20 tablet 02/26/17 03/21/17 Rx 5-325] Pantoprazole Tab [Protonix Tab] 40 mg PO DAILY #30 tablet 02/26/17 03/21/17 Rx Sulfameth/Trimeth 800-160 Tab 1 tablet PO BID #14 tablet 02/26/17 03/21/17 Rx [Bactrim DS Tab] amLODIPine [Norvasc] 5 mg PO DAILY #30 tablet 02/26/17 03/21/17 Rx Allergies Allergy/AdvReac Type Severity Reaction Status Date / Time Penicillins Allergy Intermediate RASH Verified 03/21/17 04:41 12 point system: reviewed and no additional remarkable complaints except as stated Medical,Surgical,& Family Hx - Medical History Cardio: History of: Hypertension No history of: Aneurysm, Cardiac Dysrhythmia, Cerebrovascular Disease, Congenital Heart Disease, CHF, CAD, [place], Pacemaker, PVD, Valvular Heart Disease, Cardiovascular Problems Psychological: History of: Anxiety Disorders Neurology: History of: Seizures No history of: Brain Aneurysm, Cerebral Hemorrhage, Cerebrovascular Accident , Cerebral Palsy, Dementia, Migraine, Multiple Sclerosis, Parkinson's Disease, Peripheral Neuropathy, TIA, Vertigo, Neurologocal Cancer HEENT: History of: Ear Problem ("cant hear good"), Eye Problem ("difficulty seeing") Endocrine: History of: Thyroid Disorder No history of: Dyslipidemia Rheumatology: History of;: Rheumatoid Arthritis Respiratory: No history of: Asthma, Bronchitis, COPD, Intubation, Obstructive Sleep Apnea , Pulmonary Embolism, Pulmonary Hypertension, Pneumonia, Lung Cancer, Respiratory Problems Hematology: History of: Anemia, Clotting Problems No history of: Bleeding Problems, Sickle Cell Disease, Hematologic Cancer, Blood Disorders - Surgical History Cardiac Surgeries: Patient Denies: Femoral-Popliteal Bypass Graft, Cardiac Catheterization, Cardiac Surgery, Carotid Endarterectomy, Internal Defibrillator, Vascular Access Devices Thoracic Surgeries: Patient denies;: Organ Transplant, Lobectomy Neurologic Surgeries: Patient denies: Brain Aneurysm, Cerebral Hemorrhage, Neurologic Surgery HEENT Surgeries: Patient denies: Carotid Endarterectomy, Eye Surgery, Thyroid Surgery, Tonsilectomy & Adenoidectomy Abdominal Surgeries: Patient denies: Abdominal Surgery, Splenectomy Reproductive Surgeries: Surgical HX of;: Tubal Ligation - Family History Family History: Reports;: Family Diabetes, Family Hypertension, Family Stroke - Social History Smoking Status: Never smoker Frequency of Alcohol Use: None Type of Drug Use: None Exam - Constitutional Vitals: Period Temp Pulse Resp BP Sys/Cabrera Pulse Ox Last 24 Hr 97.8 F-99.1 F 110-120 18-20 111-151/66-83 91-98 Exam: GENERAL: Patient is in no acute distress. NECK: Neck is supple. There is no JVD. No carotid bruits present. No thyroid masses. CVS: First and second heart sounds are normal. There is no S3 present. Regular rate and rhythm. RESPIRATORY: Lungs are clear to auscultation without any rales or rhonchi. ABDOMEN: Soft and non-tender. Bowel sounds are present. There is no hepatosplenomegaly. EXT: There is no palpable edema. Peripheral pulses are present. Skin: No rashes Central Nervous system: General: Alert, awake and Oriented x 3 Speech: Fluent Comprehension: Intact and normal Facial expressions: Normal Cranial Nerves: CN1/Olfactory: Normal CN II/ Optic: Normal, Visual Britt unreliable CN III, and : NGA & EOMI CN V: Normal & intact CN VII: face is symmetric CNVIII: Normal CN XI/X/XI/XII: Intact and Normal Motor: Bulk and Tone is normal. Strength in the right 3-4/5 Strength in the left 3-4/5 mild swelling in the left leg Sensory: Grossly intact for all the modalities of PP, LT and temp sense Reflexes: 1+ and symmetrical Cerebellar function: Normal finger to nose and heel to lee testing. Toes: Equivocal Gait: Not tested at this time Results - Labs CBC & BMP: 03/24/17 06:18 03/24/17 06:15 Assessment and Plan (1) Partial epilepsy Status: Acute Assessment and plan: Change Tegretol to 400 mg p.o. twice daily Check EEG Current Visit: No
[2017-03-24] MEDS: HEPARIN DRIP 25,000 UNITS/500 ML PREMIX IV SCH (17:24)
[2017-03-24] MEDS: ATORVASTATIN 10 MG TABLET PO SCH (22:00)
[2017-03-24] MEDS: traZODone 50 MG TABLET PO SCH (22:00)
[2017-03-25] MEDS: SODIUM CHLORIDE 0.9% 1,000 ML IV SCH ×4 (07:12→15:32)
[2017-03-25] MEDS: carBAMazepine 200 MG TABLET PO SCH ×2 (09:18→20:38)
[2017-03-25] MEDS: ESCITALOPRAM 10 MG TABLET PO SCH (09:19)
[2017-03-25] MEDS: PANTOPRAZOLE 40 MG TABLET PO SCH ×2 (09:19→20:39)
[2017-03-25] MEDS: amLODIPine 5 MG TABLET PO SCH (09:19)
[2017-03-25] MEDS: DOCUSATE SODIUM 100 MG CAPSULE PO SCH ×2 (09:19→20:39)
[2017-03-25] MEDS: TOPIRAMATE 25 MG TABLET PO SCH ×2 (09:19→20:39)
--- NOTE | 2017-03-25 12:40 | Nephrology Progress Note ---
Nephrology - PN: Subj Interval history: She had 2 brief seizures yesterday. She has a history of seizures. She has been evaluated by neurology. She is currently awake and oriented. She denies shortness of breath or GI symptoms. Exam (PN)-Nephrology - Vital Signs Vital signs: Period Temp Pulse Resp BP Sys/Cabrera Pulse Ox Last 24 Hr 97.5 F-99.0 F 91-107 18-20 130-155/65-88 91-100 Exam: ENT: Normal Cardiovascular: Regular rate and rhythm. No murmur rub or gallop Lungs: Clear Extremities: 2+ left leg edema - Lab 03/24/17 06:18 03/24/17 06:15 Most recent lab results Calcium 8.1 MG/DL (8.5-10.1) L 03/24/17 06:15 Assessment and Plan (1) Chronic renal failure Status: Acute Assessment and plan: 6-year-old woman with: * CRF. Baseline creatinine 1.6 * ARF. Lab from today is pending * DVT, left leg. On heparin * Hypertension * Seizure disorder * Cerebrovascular disease Current Visit: No (2) Deep vein thrombosis (DVT) of left lower extremity Status: Acute Current Visit: Yes (3) Leukocytosis Status: Acute Current Visit: Yes (4) Acute kidney injury Status: Acute Current Visit: No (5) Partial epilepsy Status: Acute Current Visit: No (6) HTN (hypertension) Status: Chronic Current Visit: No (7) History of CVA (cerebrovascular accident) Status: Chronic Current Visit: No
[2017-03-25 13:43] LABS: Osmolality,Calculated 274.4 MOS/KG (273-304); Potassium 4.3 MMOL/L (3.5-5.1)
--- NOTE | 2017-03-25 14:08 | Hospitalist Progress Note ---
Assessment and Plan (1) Narcosis Status: Acute Assessment and plan: This could be secondary to these multiple psychoactive medications. However most of them were being used at home. Because trazodone controlled the seizure threshold and patient has had seizures here, I will suggest that we stop the trazodone. Could also do an arterial blood gas to make sure patient is not hypercarbic. She is not using the [place] I suspect this is not the cause. Occult sepsis could also be the cause; please see below for workup Current Visit: Yes (2) Neutrophilic leukemoid reaction Status: Acute Assessment and plan: This could be secondary to an old clot infection. Patient has a recent instrumentation. She also has a history of recent urinary tract infections. I recommend we do the followin. Obtain 2 sets of blood cultures 2. Obtain urine culture urine Gram stain 3. Obtain a chest x-ray 4. Obtain an ultrasound of the kidneys 5. Start patient on ceftriaxone 2 g IV daily (I am aware of the penicillin allergy that is described as a rash. Cross-reactivity of beta lactams in this case is in the range of less than 1%.) And vancomycin 1.25 g every 24 hours. Get consultation with pharmacy for vancomycin dosing and pharmacokinetics. NOTE : Patient cannot use Zyvox because she is on citalopram Current Visit: Yes (3) Intractable seizure disorder Status: Chronic Assessment and plan: Neurology is on the case. Will discontinue the trazodone for fear of drop of the seizure threshold and because of the seizures here. Note that the patient could be sleepy because of postictal state stool. Current Visit: No (4) Deep vein thrombosis (DVT) of left lower extremity Status: Acute Assessment and plan: Continue heparin. We will have him to start Coumadin this time because the patient is planned for GI procedure Current Visit: Yes Hospitalist: Subjective Interval history: Patient has been seen interviewed and examined and chart has been reviewed. In summary a rather complicated clinical syndrome over 56-year-old female who about 2-3 weeks ago was admitted to the hospital for right lower extremity DVT. Appropriate anticoagulation was started and the patient had a complication of gastrointestinal bleeding. Inferior vena cava filter was placed. This time she has been admitted again with the development of a cold in the left lower extremity and she is currently on heparin. Is consulted to gastroenterology regarding her GI bleeding. Cover for that is still pending at this point. And also has demonstrated worsening acute kidney injury. Her creatinine has migrated from 2 through 2.4, 2.7 and 3 mg%. Because of this progressive renal dysfunction is unknown. Is of concern given the fact that patient has a recent and inferior vena cava filter placement. I also noticed that she is very somnolent has had 2 seizures during these admission. She is on a few psychoactive medications including Topamax, trazodone, Zanaflex, citalopram and hydrocodone acetaminophen. The face 3 can cause hypersomnolence. Trazodone can drop the seizure threshold. He denies use of oxygen at home she is a heavyset sleep apnea is a possibility over that has not been documented. To family members and a friend in the room said that this lady is very active at home and that she is very intelligent. She is on oxygen supplementation. There is incipient pulmonary disease with CO2 retention narcosis can result from oxygen over-supplementation. Exam - Constitutional Vitals: Period Temp Pulse Resp BP Sys/Cabrera Pulse Ox Last 24 Hr 97.5 F-99.0 F 91-107 18-20 130-155/65-88 97-100 General appearance: morbidly obese, other (Well-developed lady in no acute distress but very sleepy) - Head Head exam: Present: normal inspection, normocephalic, atraumatic - Eye Eye exam: Present: EOMI, other (No icterus no conjunctival petechia) Pupils: Present: NGA - ENT ENT exam: Present: normal exam, normal oropharynx - Neck Neck exam: Present: normal inspection, other (Supple neck no JVD no adenopathy) - Respiratory Respiratory exam: Present: clear to auscultation bilaterally, other (No wheezing no rales) - Cardiovascular Cardiovascular exam: Present: regular rate and rhythm - GI/Abdominal GI/Abdominal exam: Present: normal bowel sounds, soft - Extremities Exam Extremities exam: Present: other (Significant swelling especially in the left thigh but also in the cough. There is no skin damage. Tenderness of the left lower extremity. No obvious phlegmasia cerulae dolens) - Neurological Exam Neurological exam: Present: alert, oriented X3, CN II-XII intact - Psychiatric Psychiatric exam: Present: normal affect, normal mood, other (Rather sleepy but will respond to conversation appropriately) - Skin Skin exam: Present: other (Edema the left lower extremity) Results - Labs CBC & BMP: 03/24/17 06:18 03/25/17 13:13 Lab Results: I have reviewed the past 24 hour labs (Noted progressive rise in white counts aggressive lysed and creatinine mild drop in serum sodium. Therapeutic PTTs. Need to evaluate for sepsis as well as possibility of CO2 narcosis and possible structural kidney issues.)
[2017-03-25] MEDS: HEPARIN DRIP 25,000 UNITS/500 ML PREMIX IV SCH (14:26)
[2017-03-25] MEDS ORDERED: cefTRIAXone 2,000 MG VIAL IM SCH (15:00)
--- NOTE | 2017-03-25 16:30 | Event Note ---
Patient is gone for radiological test
[2017-03-25] MEDS: cefTRIAXone 2,000 MG in SODIUM CHLORIDE 0.9% 100 ML IV SCH (16:45)
--- NOTE | 2017-03-25 16:54 | Ultrasound Report ---
US renal doppler Indication: Increasing creatinine post IVC filter placement. Comparison: March 22, 2017. Technique: Multiple longitudinal and transverse real-time sonographic images of the kidneys were obtained in grayscale. Color Doppler was utilized for renovascular study. Findings: Image quality is somewhat limited secondary to patient's body habitus. Increased echogenicity bilaterally. The right kidney measures 4.6 x 8.1 x 3.7 cm, and the left kidney measures 5.3 x 7.6 x 4 point or cm. 2.0 x 1.8 cm cyst is again noted involving the mid to upper pole left kidney, unchanged since interval study. There is no evidence of nephrolithiasis or abnormal perinephric fluid collections. Bilateral cortical thinning is again noted. There is no hydronephrosis. There is no evidence of surrounding ascites. Right upper pole: Velocity 25.8 cm/second: RI I0.82 Right mid pole: Velocity 31.2 cm/s: RI of 0.73 Right lower pole: Velocity 35.8 cm/s: Our I0.74 Left upper pole: Velocity 76.6 cm/s: RI .81 Left midpole: Velocity 62.0 cm/s: RI .62 Right lower pole: Velocity 61.1 cm/s: RI 0.72 Ultrasound images were captured and stored. IMPRESSION: 1. Normal renovascular study. No evidence of renal artery stenosis 2. Atrophic, echogenic kidneys consistent with chronic medical renal disease 3. Stable left renal cyst PROCEDURE INTERPRETED AT [facility] DEPARTMENT OF RADIOLOGY Final Report Signed by: Carson Handy
[2017-03-25 17:36] LABS: ABG Base Excess -9.6 MMOL/L (-2.5-2.5); ABG HCO3 15.8 MMOL/L (20-26); ABG Oxygen Saturation 96.2 % (95-100); ABG PCO2 32.5 MM HG (35-48); ABG PH 7.305 (7.35-7.45); ABG PO2 90.4 MM HG (80-95); ABG TCO2 16.8 MMOL/L (23-27)
[2017-03-25] MEDS: VANCOMYCIN INJ 1,500 MG in SODIUM CHLORIDE 0.9% 500 ML IV SCH (18:55)
[2017-03-25] MEDS: ONDANSETRON 4 MG/2 ML VIAL IV PRN (19:40)
[2017-03-25] MEDS: ATORVASTATIN 10 MG TABLET PO SCH (20:39)
[2017-03-26] MEDS: SODIUM CHLORIDE 0.9% 1,000 ML IV SCH ×5 (02:49→23:33)
[2017-03-26 05:49] LABS: Calcium 8.1 MG/DL (8.5-10.1); Osmolality,Calculated 274.1 MOS/KG (273-304); Potassium 3.8 MMOL/L (3.5-5.1)
--- NOTE | 2017-03-26 07:55 | Hospitalist Progress Note ---
Assessment and Plan (1) Narcosis Status: Acute Assessment and plan: [place] arterial blood gas drawn yesterday this was not CO2 narcosis. Trazodone will remain to be off the medication will also discontinue hydrocodone acetaminophen. Patient is still on carbamazepine and topiramate. Current Visit: Yes (2) Neutrophilic leukemoid reaction Status: Acute Assessment and plan: Workup initiated yesterday. Ultrasound of the kidney is normal sepsis workup was in progress repeat CBC in 4 days pending report Current Visit: Yes (3) Intractable seizure disorder Status: Chronic Assessment and plan: Neurology is on the case. Will discontinue the trazodone for fear of drop of the seizure threshold and because of the seizures here. Note that the patient could be sleepy because of postictal state stool. Current Visit: No (4) Deep vein thrombosis (DVT) of left lower extremity Status: Acute Assessment and plan: Continue heparin. We will hold off on starting Coumadin this time because the patient is planned for GI procedure. Current Visit: Yes Hospitalist: Subjective Interval history: Patient seen interviewed and examined and chart has been reviewed. She is complaining of diarrhea. Patient is in the hospital with a left lower extremity DVT subsequent to the right lower extremity DVT a few weeks ago. She has a history of inferior vena cava filter after anticoagulation during the first DVT resulted in GI bleed. Other issues of concern are progressive leukocytosis, progressive renal insufficiency which at this point has taken a turn to be better, hypersomnolence and persistent edema of the left lower extremity. She did have sepsis workup initiated yesterday and also initiated empiric antibiotics. I have stop the trazodone for fear of dropping seizure threshold. Patient had had seizures during this admission. I will also stop the hydrocodone acetaminophen Exam - Constitutional Vitals: Period Temp Pulse Resp BP Sys/Cabrera Pulse Ox Last 24 Hr 97.5 F-98.4 F 90-100 18-20 140-155/68-88 96-100 General appearance: morbidly obese, other (Sleepy) - Head Head exam: Present: normocephalic, atraumatic - Eye Eye exam: Present: EOMI Pupils: Present: NGA - Respiratory Respiratory exam: Present: clear to auscultation bilaterally - Cardiovascular Cardiovascular exam: Present: regular rate and rhythm, tachycardia - GI/Abdominal GI/Abdominal exam: Present: normal bowel sounds, soft - Extremities Exam Extremities exam: Present: other (Edema the left lower extremity no skin changes ) - Neurological Exam Neurological exam: Present: alert, oriented X3, CN II-XII intact - Psychiatric Psychiatric exam: Present: other (Appropriately responsive patient is rather somnolent.) - Skin Skin exam: Present: normal color, warm, dry, other (Edema of the left lower extremities) Results - Labs CBC & BMP: 03/24/17 06:18 03/26/17 04:24 Lab Results: I have reviewed the past 24 hour labs (Noted creatinine is better 2 mg percent today backup was also come up. CBC from today is pending ABG yesterday does show metabolic acidosis most likely secondary renal insufficiency ultrasound of the kidney was done that showed normal renal vascular studies no evidence of renal artery stenosis atrophic echogenic kidneys consistent with chronic medical renal disease also showed a stable left renal cyst.)
[2017-03-26 08:09] LABS: Basophils % 0.1 % (0.0-0.8); Eosinophils % 0.1 % (0.00-10.9); Hematocrit 22.6 VOL% (35.7-47.0); Immature Granulocytes % 1.2 %; Immature Granulocytes Absolute 0.26 #; Lymphocytes # 1.4 10*3/uL (1.4-4.0); Lymphocytes % 6.9 % (21.3-54.2); Mean Corpuscular HGB Conc 35.4 GM/DL (32-36); Mean Corpuscular Hemoglobin 36 PG (27-34); Mean Corpuscular Volume 101.8 FL (87-102); Mean Platelet Volume 11.2 FL (9.6-12.0); Monocytes # 1.2 10*3/uL (0.11-0.8); Monocytes % 5.5 % (1.7-12.7); Neutrophils % 86.2 % (38.7-73.9); Platelet Count 248 T/CUMM (130-400); Red Blood Count 2.22 MC/CUMM (3.8-5.5); Red Cell Distribution Width 21.7 % (9.3-17.3); White Blood Count 20.9 T/CUMM (4-12)
[2017-03-26] MEDS: TOPIRAMATE 25 MG TABLET PO SCH ×2 (08:24→20:27)
[2017-03-26] MEDS: PANTOPRAZOLE 40 MG TABLET PO SCH ×2 (08:24→20:27)
[2017-03-26] MEDS: amLODIPine 5 MG TABLET PO SCH (08:25)
[2017-03-26] MEDS: carBAMazepine 200 MG TABLET PO SCH ×2 (08:25→20:26)
[2017-03-26] MEDS: ESCITALOPRAM 10 MG TABLET PO SCH (08:25)
[2017-03-26] MEDS: DOCUSATE SODIUM 100 MG CAPSULE PO SCH ×2 (08:25→20:26)
[2017-03-26 08:33] LABS: Hypersegmented Neutrophil Few; Hypochromasia 1+; Lymphocytes 5 % (20-55); Macrocytosis 1+; Segmented Neutrophils 94 % (50-85); Total Cells Counted 100
[2017-03-26 08:34] LABS: Anisocytosis 1+; Burr Cells Slight; Platelet Estimate Normal
--- NOTE | 2017-03-26 12:26 | Nephrology Progress Note ---
Nephrology - PN: Subj Interval history: She is awake and alert. She denies shortness of breath. Exam (PN)-Nephrology - Vital Signs Vital signs: Period Temp Pulse Resp BP Sys/Cabrera Pulse Ox Last 24 Hr 97.8 F-98.5 F 81-100 18-20 129-160/68-84 96-100 Exam: Gen.: Alert and oriented x3. ENT: Pupils equal round reactive to light. EOMs intact. Mucous membranes moist. Neck: Supple. No JVD or bruit. Cardiovascular: Regular rate and rhythm. No murmur rub or gallop Lungs: Clear Abdomen: Soft. Nontender. Positive bowel sounds. No organomegaly Extremities: 2+ left leg edema - Lab 03/26/17 04:24 03/26/17 04:24 Most recent lab results ABG pH 7.305 (7.35-7.45) L 03/25/17 16:55 ABG pCO2 32.5 MM HG (35-48) L 03/25/17 16:55 ABG pO2 90.4 MM HG (80-95) 03/25/17 16:55 ABG HCO3 15.8 MMOL/L (20-26) L 03/25/17 16:55 ABG O2 Saturation 96.2 % (95-100) 03/25/17 16:55 Calcium 8.1 MG/DL (8.5-10.1) L 03/26/17 04:24 Assessment and Plan (1) Chronic renal failure Status: Acute Assessment and plan: 6-year-old woman with: * CRF. Baseline creatinine 1.6 * ARF. Renal function is improving. * DVT, left leg. On heparin * Hypertension * Seizure disorder * Cerebrovascular disease Current Visit: No (2) Deep vein thrombosis (DVT) of left lower extremity Status: Acute Current Visit: Yes (3) Leukocytosis Status: Acute Current Visit: Yes (4) Acute kidney injury Status: Acute Current Visit: No (5) Partial epilepsy Status: Acute Current Visit: No (6) HTN (hypertension) Status: Chronic Current Visit: No (7) History of CVA (cerebrovascular accident) Status: Chronic Current Visit: No
[2017-03-26] MEDS: HEPARIN DRIP 25,000 UNITS/500 ML PREMIX IV SCH ×2 (13:18→23:36)
[2017-03-26] MEDS: cefTRIAXone 2,000 MG in SODIUM CHLORIDE 0.9% 100 ML IV SCH (16:03)
[2017-03-26] MEDS: VANCOMYCIN INJ 1,500 MG in SODIUM CHLORIDE 0.9% 500 ML IV SCH (17:47)
[2017-03-26 19:36] LABS: HIV Antigen/Antibody Result Nonreactive (Nonreactive); Hepatitis B Surface Ag Quant 0.26 Index; Hepatitis B Surface Ag Result Negative (Negative); Hepatitis C Virus Ab Quant 0.03 Index; Hepatitis C Virus Ab Result Negative (Negative)
[2017-03-26 19:52] LABS: Apearance,Urine CLEAR (Clear); Bacteria,Urine Occasional /HPF (Few); Bilirubin,Urine Negative (Negative); Blood, Urine Negative (Negative); Glucose,Urine (UA) Negative (Negative); Ketones,Urine Negative (Negative); Mucus,Urine Occasional /LPF (Occasional); Nitrite,Urine Negative (Negative); Protein,Urine Negative; RBC,Urine 1 /HPF (0-4); Squamous Epithelial Cell,Urine Occasional /HPF (0-10); Urine Color Yellow (Yellow); Urine Specific Gravity 1.006 (1.001-1.035); Urine Urobilinogen < 2.0 EU/DL (0.2-1.0); WBC,Urine 1 /HPF (0-6)
[2017-03-26] MEDS: ATORVASTATIN 10 MG TABLET PO SCH (20:27)
[2017-03-27 04:41] LABS: Basophils % 0.1 % (0.0-0.8); Eosinophils % 0.2 % (0.00-10.9); Hematocrit 20.9 VOL% (35.7-47.0); Hemoglobin 7.4 GM/DL (12.0-16.0); Immature Granulocytes % 1.1 %; Immature Granulocytes Absolute 0.19 #; Lymphocytes # 1.6 10*3/uL (1.4-4.0); Lymphocytes % 9.9 % (21.3-54.2); Mean Corpuscular HGB Conc 35.4 GM/DL (32-36); Mean Corpuscular Hemoglobin 36 PG (27-34); Mean Platelet Volume 10.6 FL (9.6-12.0); Monocytes # 0.8 10*3/uL (0.11-0.8); Monocytes % 4.9 % (1.7-12.7); Neutrophils # 13.9 10*3/uL (1.4-7.4); Neutrophils % 83.8 % (38.7-73.9); Platelet Count 261 T/CUMM (130-400); Red Blood Count 2.05 MC/CUMM (3.8-5.5); White Blood Count 16.6 T/CUMM (4-12)
[2017-03-27 04:56] LABS: Calcium 7.8 MG/DL (8.5-10.1); Osmolality,Calculated 279.5 MOS/KG (273-304); Potassium 3.2 MMOL/L (3.5-5.1)
[2017-03-27 05:07] LABS: Calcium 7.8 MG/DL (8.5-10.1); Magnesium 2.3 MG/DL (1.8-2.4); Osmolality,Calculated 279.5 MOS/KG (273-304); Potassium 3.1 MMOL/L (3.5-5.1)
[2017-03-27 06:15] LABS: Anisocytosis 3+; Platelet Estimate Normal; Schistocytes Few; Target Cells Few
[2017-03-27] MEDS: SODIUM CHLORIDE 0.9% 1,000 ML IV SCH ×2 (08:27→08:33)
[2017-03-27] MEDS: carBAMazepine 200 MG TABLET PO SCH ×2 (08:28→21:15)
[2017-03-27] MEDS: amLODIPine 5 MG TABLET PO SCH (08:28)
[2017-03-27] MEDS: PANTOPRAZOLE 40 MG TABLET PO SCH ×2 (08:28→21:16)
[2017-03-27] MEDS: TOPIRAMATE 25 MG TABLET PO SCH ×2 (08:29→21:15)
[2017-03-27] MEDS: ESCITALOPRAM 10 MG TABLET PO SCH (08:29)
[2017-03-27] MEDS: DOCUSATE SODIUM 100 MG CAPSULE PO SCH ×2 (08:30→21:54)
--- NOTE | 2017-03-27 14:04 | Nephrology Progress Note ---
Nephrology - PN: Subj Interval history: No shortness of breath. No new symptoms Exam (PN)-Nephrology - Vital Signs Vital signs: Period Temp Pulse Resp BP Sys/Cabrera Pulse Ox Last 24 Hr 97.6 F-98.7 F 78-90 18-20 128-152/58-81 97-99 Exam: ENT: Normal Cardiovascular: Regular rate and rhythm. No murmur rub or gallop Lungs: Clear Extremities: 2+ left leg edema - Lab 03/27/17 03:50 03/27/17 03:50 Most recent lab results ABG pH 7.305 (7.35-7.45) L 03/25/17 16:55 ABG pCO2 32.5 MM HG (35-48) L 03/25/17 16:55 ABG pO2 90.4 MM HG (80-95) 03/25/17 16:55 ABG HCO3 15.8 MMOL/L (20-26) L 03/25/17 16:55 ABG O2 Saturation 96.2 % (95-100) 03/25/17 16:55 Calcium 7.8 MG/DL (8.5-10.1) L 03/27/17 03:50 Magnesium 2.3 MG/DL (1.8-2.4) 03/27/17 03:50 Assessment and Plan (1) Chronic renal failure Status: Acute Assessment and plan: 6-year-old woman with: * CRF. Baseline creatinine 1.6 * ARF. Renal function is improving. It is approaching her prior baseline * DVT, left leg. On heparin * Hypertension * Seizure disorder * Cerebrovascular disease Current Visit: No (2) Deep vein thrombosis (DVT) of left lower extremity Status: Acute Current Visit: Yes (3) Leukocytosis Status: Acute Current Visit: Yes (4) Acute kidney injury Status: Acute Current Visit: No (5) Partial epilepsy Status: Acute Current Visit: No (6) HTN (hypertension) Status: Chronic Current Visit: No (7) History of CVA (cerebrovascular accident) Status: Chronic Current Visit: No
--- NOTE | 2017-03-27 14:36 | Neurology Progress Note ---
Neurology - PN : Subjective Interval history: Ms. Rossi seems to be doing fairly well from neuro standpoint. Her left leg is still swollen and she is not walking yet. No seizures/seizure-like activity reported. Exam (Progress Note) - Constitutional Vitals: Period Temp Pulse Resp BP Sys/Cabrera Pulse Ox Last 24 Hr 97.6 F-98.7 F 78-90 18-20 128-152/58-81 97-99 Exam: GENERAL: Patient is in no acute distress. NECK: Neck is supple. There is no JVD. No carotid bruits present. No thyroid masses. CVS: First and second heart sounds are normal. There is no S3 present. Regular rate and rhythm. RESPIRATORY: Lungs are clear to auscultation without any rales or rhonchi. ABDOMEN: Soft and non-tender. Bowel sounds are present. There is no hepatosplenomegaly. EXT: There is no palpable edema. Peripheral pulses are present. Skin: No rashes Central Nervous system: General: Alert, awake and Oriented x 3 Speech: Fluent Comprehension: Intact and normal Facial expressions: Normal Cranial Nerves: CN1/Olfactory: Normal CN II/ Optic: Normal, Visual Britt unreliable CN III, and : NGA & EOMI CN V: Normal & intact CN VII: face is symmetric CNVIII: Normal CN XI/X/XI/XII: Intact and Normal Motor: Bulk and Tone is normal. Strength in the right 3-4/5 Strength in the left 3-4/5 mild swelling in the left leg Sensory: Grossly intact for all the modalities of PP, LT and temp sense Reflexes: 1+ and symmetrical Cerebellar function: Normal finger to nose and heel to lee testing. Toes: Equivocal Gait: Not tested at this time Results - Labs CBC & BMP: 03/27/17 03:50 03/27/17 03:50 Assessment and Plan (1) Partial epilepsy Status: Acute Assessment and plan: Tegretol to 400 mg p.o. twice daily Continue current management Sign off please call as needed Current Visit: No
--- NOTE | 2017-03-27 16:25 | Hospitalist Progress Note ---
Hospitalist: Subjective Interval history: Pt reports she has been sleepy the last couple of days. No fever. No dizziness. No cp or SOB. No palpitations. Daughter reports she snores at night but has not been diagnosed with LIZETTE. Exam - Constitutional Vitals: Period Temp Pulse Resp BP Sys/Cabrera Pulse Ox Last 24 Hr 97.6 F-98.7 F 78-90 18-20 128-152/58-81 97-99 Exam: A and O x 3, obese, arousable, NAD RRR no M CTAB nonlabored Soft, NT, ND, +BS Warm no cyanosis or clubbing. +2 pitting LLE edema. RLE wnl. Results - Labs CBC & BMP: 03/27/17 03:50 03/27/17 03:50 - Impressions (1) Lethargy Status: Acute Assessment and plan: Arterial blood gas drawn was not CO2 narcosis. May be medication related. Trazodone will remain to be off the medication as well as norco. Patient is still on carbamazepine and topiramate. May need to consider holding the topamax or reducing dose if no improvement. Current Visit: Yes (2) Neutrophilic leukemoid reaction Status: Acute Assessment and plan: Workup initiated yesterday. Ultrasound of the kidney is normal. sepsis workup was in progress. F/U results. Current Visit: Yes (3) Intractable seizure disorder Status: Chronic Assessment and plan: Neurology signed off. Will discontinue the trazodone permanently for fear of lowering the seizure threshold. Cont Tegretol. Current Visit: No (4) Deep vein thrombosis (DVT) of left lower extremity Status: Acute Assessment and plan: Continue heparin. We will hold off on starting Coumadin this time because the patient is planned for GI procedure. Current Visit: Yes (5) Anemia - serial H and H. If worsens, may need to transfuse and consider holding heparin drip (6) Suspected LIZETTE- -recommend sleep study. Consult Dr. Waldron. Hold IVF. D/W nurse, pt and daughter. All questions answered. I will be away several days. One of my associates will follow in my absence.
[2017-03-27] MEDS: cefTRIAXone 2,000 MG in SODIUM CHLORIDE 0.9% 100 ML IV SCH (16:39)
[2017-03-27] MEDS ORDERED: POTASSIUM CHLORIDE 20 MEQ TABLET PO ONE (17:34)
[2017-03-27] MEDS: VANCOMYCIN INJ 1,500 MG in SODIUM CHLORIDE 0.9% 500 ML IV SCH (17:57)
[2017-03-27] MEDS ORDERED: ALUM/MAG/SIMETH/LIDO VISC 1:1 30 ML BOTTLE PO ONE (18:11)
--- NOTE | 2017-03-27 18:31 | EKG Report ---
Stationary ECG Study [facility] Test Date: 03/27/2017 6:30:50 PM Pat Name: ELISA CHAPMAN Department: Room: 525 Gender: F [employer]: : 1960 Requested by: Tamie Leblanc Order Number: [id number] Reading MD: NATACHA NIÑO Intervals [place] Rate: 90 P: 62 SD: 178 QRS: 14 QRSD: 107 T: 4 QT: 355 QTc: 403 Interpretive Statements SINUS RHYTHM NONSPECIFIC T-WAVE ABNORMALITY Electronically Signed On 03-28-17 16:10:19 CDT by NATACHA NIÑO [email or web address]
[2017-03-27] MEDS: HEPARIN DRIP 25,000 UNITS/500 ML PREMIX IV SCH (18:40)
[2017-03-27 19:12] LABS: Troponin I Only < 0.015 NG/ML (0.00-0.045)
[2017-03-27] MEDS: ATORVASTATIN 10 MG TABLET PO SCH (21:15)
[2017-03-27] MEDS: ONDANSETRON 4 MG/2 ML VIAL IV PRN (21:21)
[2017-03-28 03:28] LABS: Basophils % 0.1 % (0.0-0.8); Eosinophils # 0.1 10*3/uL (0.0-0.87); Eosinophils % 0.5 % (0.00-10.9); Hematocrit 21.7 VOL% (35.7-47.0); Hemoglobin 7.6 GM/DL (12.0-16.0); Immature Granulocytes % 1.1 %; Immature Granulocytes Absolute 0.18 #; Lymphocytes # 2.1 10*3/uL (1.4-4.0); Lymphocytes % 13.1 % (21.3-54.2); Mean Corpuscular Hemoglobin 35 PG (27-34); Mean Corpuscular Volume 100.9 FL (87-102); Mean Platelet Volume 10.4 FL (9.6-12.0); Monocytes # 0.7 10*3/uL (0.11-0.8); Monocytes % 4.1 % (1.7-12.7); Neutrophils # 12.8 10*3/uL (1.4-7.4); Neutrophils % 81.1 % (38.7-73.9); Platelet Count 303 T/CUMM (130-400); Red Blood Count 2.15 MC/CUMM (3.8-5.5); White Blood Count 15.8 T/CUMM (4-12)
[2017-03-28 03:54] LABS: Calcium 7.9 MG/DL (8.5-10.1); Osmolality,Calculated 281.3 MOS/KG (273-304); Potassium 2.9 MMOL/L (3.5-5.1)
[2017-03-28] MEDS ORDERED: POTASSIUM CHLORIDE 20 MEQ TABLET PO ONE ×2 (04:49→04:55)
[2017-03-28 04:54] LABS: Anisocytosis 1+; Macrocytosis 1+; Platelet Estimate Normal
[2017-03-28] MEDS: TOPIRAMATE 25 MG TABLET PO SCH ×2 (08:22→21:17)
[2017-03-28] MEDS: carBAMazepine 200 MG TABLET PO SCH ×2 (08:22→21:17)
[2017-03-28] MEDS: DOCUSATE SODIUM 100 MG CAPSULE PO SCH ×2 (08:23→21:18)
[2017-03-28] MEDS: PANTOPRAZOLE 40 MG TABLET PO SCH ×2 (08:23→21:17)
[2017-03-28] MEDS: amLODIPine 5 MG TABLET PO SCH (08:23)
[2017-03-28] MEDS: ESCITALOPRAM 10 MG TABLET PO SCH (08:23)
--- NOTE | 2017-03-28 15:11 | Nephrology Progress Note ---
Nephrology - PN: Subj Interval history: She is alert. She denies shortness of breath. Exam (PN)-Nephrology - Vital Signs Vital signs: Period Temp Pulse Resp BP Sys/Cabrera Pulse Ox Last 24 Hr 97.8 F-98.7 F 61-87 18-20 134-159/68-76 93-100 Exam: ENT: Normal Cardiovascular: Regular rate and rhythm. No murmur rub or gallop Lungs: Clear Extremities: 2+ left leg edema - Lab 03/28/17 02:21 03/28/17 02:21 Most recent lab results ABG pH 7.305 (7.35-7.45) L 03/25/17 16:55 ABG pCO2 32.5 MM HG (35-48) L 03/25/17 16:55 ABG pO2 90.4 MM HG (80-95) 03/25/17 16:55 ABG HCO3 15.8 MMOL/L (20-26) L 03/25/17 16:55 ABG O2 Saturation 96.2 % (95-100) 03/25/17 16:55 Calcium 7.9 MG/DL (8.5-10.1) L 03/28/17 02:21 Magnesium 2.3 MG/DL (1.8-2.4) 03/27/17 03:50 Assessment and Plan (1) Chronic renal failure Status: Acute Assessment and plan: 6-year-old woman with: * CRF. Baseline creatinine 1.6 * ARF. Resolved * DVT, left leg. On heparin * Hypertension * Seizure disorder * Cerebrovascular disease Current Visit: No (2) Deep vein thrombosis (DVT) of left lower extremity Status: Acute Current Visit: Yes (3) Leukocytosis Status: Acute Current Visit: Yes (4) Acute kidney injury Status: Acute Current Visit: No (5) Partial epilepsy Status: Acute Current Visit: No (6) HTN (hypertension) Status: Chronic Current Visit: No (7) History of CVA (cerebrovascular accident) Status: Chronic Current Visit: No
[2017-03-28] MEDS: HEPARIN DRIP 25,000 UNITS/500 ML PREMIX IV SCH (15:20)
[2017-03-28] MEDS: cefTRIAXone 2,000 MG in SODIUM CHLORIDE 0.9% 100 ML IV SCH (15:54)
--- NOTE | 2017-03-28 16:14 | Hospitalist Progress Note ---
Hospitalist: Subjective Interval history: 56-year-old -[place] female was admitted with significant DVT of the legs, as well as his significant leukocytosis. Her legs are still quite significantly swollen but renal function is improving, after discontinuation of Bactrim. Exam - Constitutional Vitals: Period Temp Pulse Resp BP Sys/Cabrera Pulse Ox Last 24 Hr 97.8 F-98.7 F 61-86 18-20 134-148/68-73 93-100 Exam: General: No Acute Distress HEENT: Normocephalic, atraumatic, Extra ocular movements intact Neck: Supple, No JVD Chest: Clear to auscultation B/L CV: S1 + S2 audible without murmur, gallop or rub Abd: soft, NT, Non-distended, BS + Ext: Bilateral lower extremity swelling and edema, L > R Skin: No purpura, bruising or rash Rheumatologic: No Joint deformities Neurologic: Strength 5/5 all extremities, no gross sensory deficits Results - Labs CBC & BMP: 03/28/17 02:21 03/28/17 02:21 - Impressions Assessment and plan: Deep vein thrombosis (DVT) of left lower extremity Status: Acute Assessment and plan: Continue IV heparin. We will hold off on starting Coumadin this time because the patient may undergo vascular intervention. Vascular surgery was following. She does have IVC filter in place. Current Visit: Yes Acute kidney injury on chronic kidney disease 3 Status: Acute Assessment and plan: This was due to Bactrim. Creatinine continues to improve after holding Bactrim Current Visit: No Leukocytosis Status: Acute Current Visit: Yes Assessment and plan: She has significant leukocytosis on presentation, sepsis workup was negative, but this has improved significantly on vancomycin and Rocephin, continue Partial seizure disorder Status: Acute Assessment and plan: Stable on Tegretol 4 mg p.o. twice daily continue Current Visit: No Essential hypertension Status: Chronic Current Visit: No Assessment and plan: This is controlled on several blood pressure medications continue
[2017-03-28] MEDS: POTASSIUM CHLORIDE 20 MEQ TABLET PO SCH (16:31)
[2017-03-28] MEDS: VANCOMYCIN INJ 1,500 MG in SODIUM CHLORIDE 0.9% 500 ML IV SCH (17:06)
[2017-03-28] MEDS ORDERED: PRAMOXINE 1% RECTAL FOAM 15 GM CAN TOP PRN (18:55)
[2017-03-28] MEDS: ATORVASTATIN 10 MG TABLET PO SCH (21:17)
[2017-03-29 08:33] LABS: Calcium 8.3 MG/DL (8.5-10.1)
[2017-03-29 08:34] LABS: Osmolality,Calculated 281.3 MOS/KG (273-304); Potassium 3.1 MMOL/L (3.5-5.1)
[2017-03-29] MEDS: amLODIPine 5 MG TABLET PO SCH (08:50)
[2017-03-29] MEDS: carBAMazepine 200 MG TABLET PO SCH ×2 (08:51→22:36)
[2017-03-29] MEDS: DOCUSATE SODIUM 100 MG CAPSULE PO SCH ×2 (08:51→22:37)
[2017-03-29] MEDS: PANTOPRAZOLE 40 MG TABLET PO SCH ×2 (08:51→22:36)
[2017-03-29] MEDS: POTASSIUM CHLORIDE 20 MEQ TABLET PO SCH (08:51)
[2017-03-29] MEDS: ESCITALOPRAM 10 MG TABLET PO SCH (08:56)
[2017-03-29] MEDS: TOPIRAMATE 25 MG TABLET PO SCH ×2 (10:41→22:36)
[2017-03-29] MEDS: HEPARIN DRIP 25,000 UNITS/500 ML PREMIX IV SCH ×2 (15:00→23:29)
[2017-03-29] MEDS: cefTRIAXone 2,000 MG in SODIUM CHLORIDE 0.9% 100 ML IV SCH (16:27)
--- NOTE | 2017-03-29 17:05 | Hospitalist Progress Note ---
Hospitalist: Subjective Interval history: 56-year-old -[place]ian female was admitted with significant DVT of the legs, as well as his significant leukocytosis. Her legs are still quite significantly swollen but renal function is improving, after discontinuation of Bactrim. Exam - Constitutional Vitals: Period Temp Pulse Resp BP Sys/Cabrera Pulse Ox Last 24 Hr 97.3 F-99.0 F 76-87 14-22 121-156/60-80 97-100 Exam: General: No Acute Distress HEENT: Normocephalic, atraumatic, Extra ocular movements intact Neck: Supple, No JVD Chest: Clear to auscultation B/L CV: S1 + S2 audible without murmur, gallop or rub Abd: soft, NT, Non-distended, BS + Ext: Bilateral lower extremity swelling and edema, L > R Skin: No purpura, bruising or rash Rheumatologic: No Joint deformities Neurologic: Strength 5/5 all extremities, no gross sensory deficits Results - Labs CBC & BMP: 03/28/17 02:21 03/29/17 06:28 - Impressions Assessment and plan: Deep vein thrombosis (DVT) of left lower extremity Status: Acute Assessment and plan: Continue IV heparin. We will hold off on starting Coumadin this time because the patient may undergo vascular intervention. Vascular surgery was following. She does have IVC filter in place. I consulted interventional radiology on March 29 to consider thrombolysis and clot extraction and spoke to them by phone as well. They said that they will review the films and decide about intervention. Current Visit: Yes Acute kidney injury on chronic kidney disease 3 Status: Acute Assessment and plan: This was due to Bactrim. Creatinine continues to improve after holding Bactrim Current Visit: No Leukocytosis Status: Acute Current Visit: Yes Assessment and plan: She has significant leukocytosis on presentation, sepsis workup was negative, but this has improved significantly on vancomycin and Rocephin, continue Partial seizure disorder Status: Acute Assessment and plan: Stable on Tegretol 4 mg p.o. twice daily continue Current Visit: No Essential hypertension Status: Chronic Current Visit: No Assessment and plan: This is controlled on several blood pressure medications continue
--- NOTE | 2017-03-29 21:40 | Nephrology Progress Note ---
Nephrology - PN: Subj Interval history: No shortness of breath. No new symptoms Exam (PN)-Nephrology - Vital Signs Vital signs: Period Temp Pulse Resp BP Sys/Cabrera Pulse Ox Last 24 Hr 97.9 F-99.0 F 76-87 14-22 121-152/60-80 97-99 Exam: ENT: Normal Cardiovascular: Regular rate and rhythm. No murmur rub or gallop Lungs: Clear Extremities: 2+ left leg edema - Lab 03/28/17 02:21 03/29/17 06:28 Most recent lab results ABG pH 7.305 (7.35-7.45) L 03/25/17 16:55 ABG pCO2 32.5 MM HG (35-48) L 03/25/17 16:55 ABG pO2 90.4 MM HG (80-95) 03/25/17 16:55 ABG HCO3 15.8 MMOL/L (20-26) L 03/25/17 16:55 ABG O2 Saturation 96.2 % (95-100) 03/25/17 16:55 Calcium 8.3 MG/DL (8.5-10.1) L 03/29/17 06:28 Magnesium 2.3 MG/DL (1.8-2.4) 03/27/17 03:50 Assessment and Plan (1) Chronic renal failure Status: Acute Assessment and plan: 6-year-old woman with: * CRF. Baseline creatinine 1.6 * ARF. Resolved * DVT, left leg. On heparin * Hypertension * Seizure disorder * Cerebrovascular disease Current Visit: No (2) Deep vein thrombosis (DVT) of left lower extremity Status: Acute Current Visit: Yes (3) Leukocytosis Status: Acute Current Visit: Yes (4) Acute kidney injury Status: Acute Current Visit: No (5) Partial epilepsy Status: Acute Current Visit: No (6) HTN (hypertension) Status: Chronic Current Visit: No (7) History of CVA (cerebrovascular accident) Status: Chronic Current Visit: No
[2017-03-29] MEDS: ATORVASTATIN 10 MG TABLET PO SCH (22:36)
[2017-03-30] MEDS: tiZANidine 4 MG TABLET PO PRN (03:48)
[2017-03-30] MEDS ORDERED: VANCOMYCIN INJ 1,500 MG in SODIUM CHLORIDE 0.9% 500 ML IV SCH (05:00)
[2017-03-30 06:40] LABS: Calcium 7.8 MG/DL (8.5-10.1); Osmolality,Calculated 283.1 MOS/KG (273-304); Potassium 2.7 MMOL/L (3.5-5.1)
[2017-03-30] MEDS: DOCUSATE SODIUM 100 MG CAPSULE PO SCH ×2 (09:08→21:02)
[2017-03-30] MEDS: carBAMazepine 200 MG TABLET PO SCH ×2 (09:08→21:01)
[2017-03-30] MEDS: POTASSIUM CHLORIDE 20 MEQ TABLET PO SCH (09:08)
[2017-03-30] MEDS: ESCITALOPRAM 10 MG TABLET PO SCH (09:09)
[2017-03-30] MEDS: PANTOPRAZOLE 40 MG TABLET PO SCH ×2 (09:09→21:02)
[2017-03-30] MEDS: TOPIRAMATE 25 MG TABLET PO SCH ×2 (09:09→21:01)
[2017-03-30] MEDS: amLODIPine 5 MG TABLET PO SCH (09:09)
[2017-03-30] MEDS ORDERED: POTASSIUM CHLORIDE 20 MEQ TABLET PO ONE (09:11)
--- NOTE | 2017-03-30 12:45 | Hospitalist Progress Note ---
Assessment and Plan - Time spent with patient Time spent with patient: Less than 30 minutes (1) Deep vein thrombosis (DVT) of left lower extremity Status: Acute Assessment and plan: 03/30/17 - Left leg elevated to pillow. Heparin infusions Will discuss with Dr Beaver and further recommendations to follow. Current Visit: Yes (2) Leukocytosis Status: Acute Assessment and plan: 03/30/17 Last WBC on 03/28/17 - 15.8 no new labs this a.m. repeat a.m. labs. Current Visit: Yes (3) Hypokalemia Status: Acute Assessment and plan: K 2.7 this a.m. Replacement ordered. repeat a.m. labs Current Visit: Yes Hospitalist: Subjective Interval history: Ms Wyatt seen and chart reviewed. She is sitting up in bed brushing her teeth. She reports feeling a little better this morning. She has left leg elevated to pillow. It is swollen and tight, she reports it might feel a little less swollen this morning but still painful and "just uncomfortable". She denies shortness of breath or chest pain. Exam - Constitutional Vitals: Period Temp Pulse Resp BP Sys/Cabrera Pulse Ox Last 24 Hr 97.7 F-99.4 F 66-87 14-20 92-151/53-86 93-99 General appearance: no acute distress - Head Head exam: Present: normal inspection - Eye Eye exam: Present: EOMI Pupils: Present: NGA - Respiratory Respiratory exam: Present: clear to auscultation bilaterally. Absent: wheezes - Cardiovascular Cardiovascular exam: Present: regular rate and rhythm - GI/Abdominal GI/Abdominal exam: Present: normal bowel sounds, soft. Absent: tenderness, rebound - Extremities Exam Extremities exam: Present: full ROM, edema (left leg swollen without pitting) - Neurological Exam Neurological exam: Present: alert, oriented X3 - Psychiatric Psychiatric exam: Present: normal affect, normal mood - Skin Skin exam: Present: normal color, warm, dry Results - Labs CBC & BMP: 03/28/17 02:21 03/30/17 05:20 Lab Results: I have reviewed the past 24 hour labs
[2017-03-30] MEDS: HEPARIN DRIP 25,000 UNITS/500 ML PREMIX IV SCH ×2 (14:08→15:29)
--- NOTE | 2017-03-30 14:17 | XRay Report ---
Exam: XR KUB Date: 03/30/2017 11:48 AM Indication: Abdominal pain Comparison: 02/24/2017 Technical: AP Findings: Minimal interstitial thickening lung bases. Mild prominence the cardiac silhouette. The liver shadow spleen shadow and renal shadows are not well seen. An IVC filter is present. Dilated large and small bowel loops are present. Phleboliths are present. No obvious pneumoperitoneum. Bony structures are intact. Impression: 1. IVC filter 2. Abdominal ileus pattern present. PROCEDURE INTERPRETED AT [facility] DEPARTMENT OF RADIOLOGY Final Report Signed by: Dr. Maldonado Ko
[2017-03-30] MEDS: cefTRIAXone 2,000 MG in SODIUM CHLORIDE 0.9% 100 ML IV SCH (15:28)
--- NOTE | 2017-03-30 16:58 | Event Note ---
Upon evaluation, the left leg again is somewhat swollen and enlarged compared to the right. However, having not seen her for a few days, the left leg appears significantly improved. The degree of swelling has significantly decreased and there is also significant decrease in pain with palpation and mobility. Patient reports no physical therapy has occurred. There has also been no suggestion of internal bleeding. Renal issues have been largely resolved. At this point I feel that the patient has not done significant physical therapy but has already seen some improvement with reduction in swelling and pain within the left leg. I discussed with the nurse to start physical therapy this afternoon and potentially try physical therapy again 2 times tomorrow and will reevaluate the situation clinically. Given the incremental improvement and her history of issues with bleeding previously, I am leery of additional intervention at this point.
[2017-03-30] MEDS: POTASSIUM CHLORIDE INJ 40 MEQ in LACTATED RINGERS 1,000 ML IV SCH (18:12)
--- NOTE | 2017-03-30 19:08 | Nephrology Progress Note ---
Nephrology - PN: Subj Interval history: No shortness of breath or GI symptoms. Exam (PN)-Nephrology - Vital Signs Vital signs: Period Temp Pulse Resp BP Sys/Cabrera Pulse Ox Last 24 Hr 97.7 F-99.4 F 66-86 14-18 92-151/53-86 93-99 Exam: Gen.: Alert and oriented x3. ENT: Pupils equal round reactive to light. EOMs intact. Mucous membranes moist. Neck: Supple. No JVD or bruit. Cardiovascular: Regular rate and rhythm. No murmur rub or gallop Lungs: Clear Abdomen: Soft. Nontender. Positive bowel sounds. No organomegaly Extremities: 2+ left leg edema - Lab 03/28/17 02:21 03/30/17 05:20 Most recent lab results ABG pH 7.305 (7.35-7.45) L 03/25/17 16:55 ABG pCO2 32.5 MM HG (35-48) L 03/25/17 16:55 ABG pO2 90.4 MM HG (80-95) 03/25/17 16:55 ABG HCO3 15.8 MMOL/L (20-26) L 03/25/17 16:55 ABG O2 Saturation 96.2 % (95-100) 03/25/17 16:55 Calcium 7.8 MG/DL (8.5-10.1) L 03/30/17 05:20 Magnesium 2.3 MG/DL (1.8-2.4) 03/27/17 03:50 Assessment and Plan (1) Chronic renal failure Status: Acute Assessment and plan: 6-year-old woman with: * CRF. Baseline creatinine 1.6 * ARF. Resolved * DVT, left leg. On heparin * Hypertension * Seizure disorder * Cerebrovascular disease Current Visit: No (2) Deep vein thrombosis (DVT) of left lower extremity Status: Acute Current Visit: Yes (3) Leukocytosis Status: Acute Current Visit: Yes (4) Acute kidney injury Status: Acute Current Visit: No (5) Partial epilepsy Status: Acute Current Visit: No (6) HTN (hypertension) Status: Chronic Current Visit: No (7) History of CVA (cerebrovascular accident) Status: Chronic Current Visit: No
[2017-03-30 19:30] LABS: PT Patient Result 10.4 SECS
[2017-03-30 19:40] LABS: Partial Thromboplastin Time 82.5 SECS (0-40)
[2017-03-30] MEDS: ATORVASTATIN 10 MG TABLET PO SCH (21:02)
[2017-03-30] MEDS: POLYETHYLENE GLYCOL POWDER 17 GM PACK PO SCH (21:02)
[2017-03-30] MEDS: ONDANSETRON 4 MG/2 ML VIAL IV PRN (23:58)
[2017-03-31] MEDS: HEPARIN DRIP 25,000 UNITS/500 ML PREMIX IV SCH ×3 (05:51→21:18)
[2017-03-31 08:09] LABS: Basophils % 0.1 % (0.0-0.8); Eosinophils # 0.2 10*3/uL (0.0-0.87); Hematocrit 22.4 VOL% (35.7-47.0); Immature Granulocytes % 5.5 %; Lymphocytes % 11.9 % (21.3-54.2); Mean Corpuscular HGB Conc 35.7 GM/DL (32-36); Mean Corpuscular Hemoglobin 35 PG (27-34); Mean Corpuscular Volume 98.7 FL (87-102); Monocytes # 0.6 10*3/uL (0.11-0.8); Monocytes % 3.8 % (1.7-12.7); Neutrophils # 12.8 10*3/uL (1.4-7.4); Neutrophils % 77.7 % (38.7-73.9); Platelet Count 376 T/CUMM (130-400); Red Blood Count 2.27 MC/CUMM (3.8-5.5); Red Cell Distribution Width 23.3 % (9.3-17.3); White Blood Count 16.4 T/CUMM (4-12)
[2017-03-31 08:37] LABS: Eosinophils 2 % (0-10); Hypochromasia Slight; Lymphocytes 10 % (20-55); Macrocytosis 1+; Platelet Estimate Adequate; Segmented Neutrophils 82 % (50-85); Total Cells Counted 100
[2017-03-31] MEDS: POTASSIUM CHLORIDE INJ 40 MEQ in LACTATED RINGERS 1,000 ML IV SCH ×2 (08:49→21:17)
[2017-03-31] MEDS: PANTOPRAZOLE 40 MG TABLET PO SCH ×2 (08:49→21:11)
[2017-03-31] MEDS: ESCITALOPRAM 10 MG TABLET PO SCH (08:49)
[2017-03-31] MEDS: amLODIPine 5 MG TABLET PO SCH (08:49)
[2017-03-31] MEDS: POLYETHYLENE GLYCOL POWDER 17 GM PACK PO SCH ×2 (08:49→21:11)
[2017-03-31] MEDS: TOPIRAMATE 25 MG TABLET PO SCH ×2 (08:49→21:11)
[2017-03-31] MEDS: DOCUSATE SODIUM 100 MG CAPSULE PO SCH ×2 (08:49→21:11)
[2017-03-31] MEDS: carBAMazepine 200 MG TABLET PO SCH ×2 (08:49→21:11)
--- NOTE | 2017-03-31 08:56 | Gastrointestinal Progress Note ---
<Kimberly Plata Diana - Last Filed: 03/31/17 08:53> Assessment and Plan (1) Abdominal pain Status: Acute Assessment and plan: 03/31-onset yesterday of abdominal pain with nausea and vomiting. Protracted hospital stay with inability to get up and ambulate. Hypokalemia on yesterday repleted with repeat potassium pending. KUB with findings of dilated small and large bowel noted. Patient to get out of bed today with physical therapy. Discussed with patient placement of NG tube if symptoms persist to alleviate nausea/vomiting and abdominal pain. Patient declines this at this time however will order as needed. Multiple watery stools daily. Check stool studies. Plan an addendum to follow by Dr. White. Current Visit: Yes Gastroenterology - PN: Subj Interval history: CC: Abdominal pain Patient is seen awake and alert, lying in bed. She was admitted on 03/21 with continued leg pain with a prior history of DVT with findings of increasing DVT to left leg. She has a history of anemia and GI bleeding however is on anticoagulation for her continued thrombus. She was evaluated by Dr. White after admission to monitor for GI bleeding however she has had no further findings of this and GI signed off at that time. We are now reconsulted due to development of an ileus and abdominal pain. Patient was doing fairly well until yesterday when she had an onset of episodes of abdominal pain that is sharp and stabbing in nature as well as an onset of nausea and vomiting last night. No coffee-ground emesis or hematemesis. KUB on yesterday shows dilated large and small bowel loops without pneumoperitoneum. She states that she is having watery stools, multiple per day without any melena or hematochezia. She states she was passing a small amount of flatus earlier this week but is not in the past couple days. She is afebrile however noted to have WBCs at 16,000. H& H is holding at 03/15. Abdomen is soft, distended with mild tenderness to palpation diffusely. ROS: Denies shortness breath or chest pain Exam (Progress Note) - Constitutional Vitals: Period Temp Pulse Resp BP Sys/Cabrera Pulse Ox Last 24 Hr 97.7 F-98.7 F 71-82 16- 139-158/64-86 93-99 General appearance: normal weight, no acute distress - Head Head exam: Present: normal inspection, normocephalic - Eye Eye exam: Present: other (Lids and conjunctive are unremarkable). Absent: scleral icterus - ENT ENT exam: Present: normal exam, normal oropharynx - Neck Neck exam: Present: normal inspection - Respiratory Respiratory exam: Present: clear to auscultation bilaterally. Absent: rales, rhonchi, wheezes - Cardiovascular Cardiovascular exam: Present: regular rate and rhythm. Absent: diastolic murmur , JVD, systolic murmur - GI/Abdominal GI/Abdominal exam: Present: distended, hypoactive bowel sounds, tenderness, soft. Absent: ascites, mass, organomegaly - Extremities Exam Extremities exam: Present: normal inspection, full ROM - Back Exam Back exam: Present: normal inspection - Neurological Exam Neurological exam: Present: alert, oriented X3 - Psychiatric Psychiatric exam: Present: normal affect, normal mood - Skin Skin exam: Present: normal color, warm, dry Results - Labs CBC & BMP: 03/31/17 06:27 03/30/17 05:20 Lab Results: I have reviewed the past 24 hour labs - Diagnostic Findings Procedure: KUB x-ray: report reviewed by me <Alexis White - Last Filed: 03/31/17 17:18> Exam (Progress Note) - Constitutional Vitals: Period Temp Pulse Resp BP Sys/Cabrera Pulse Ox Last 24 Hr 97.5 F-98.7 F 76-82 16-22 106-158/58-74 97-99 Results - Labs CBC & BMP: 03/31/17 06:27 03/31/17 06:27
[2017-03-31] MEDS ORDERED: POTASSIUM CHLORIDE 20 MEQ TABLET PO SCH (09:00)
[2017-03-31 09:06] LABS: Calcium 8.2 MG/DL (8.5-10.1); Potassium 2.7 MMOL/L (3.5-5.1)
[2017-03-31] MEDS: ONDANSETRON 4 MG/2 ML VIAL IV PRN (14:09)
[2017-03-31 14:25] LABS: PT Patient Result 10.7 SECS
[2017-03-31 14:27] LABS: Partial Thromboplastin Time 67.2 SECS (0-40)
--- NOTE | 2017-03-31 14:39 | Nephrology Progress Note ---
Nephrology - PN: Subj Interval history: She had nausea last night. KUB consistent with ileus. Nausea is better this morning. She denies shortness of breath Exam (PN)-Nephrology - Vital Signs Vital signs: Period Temp Pulse Resp BP Sys/Cabrera Pulse Ox Last 24 Hr 97.5 F-98.7 F 76-82 16-22 106-158/58-74 97-99 Exam: ENT: Normal Cardiovascular: Regular rate and rhythm. No murmur rub or gallop Lungs: Clear Extremities: 2+ left leg edema - Lab 03/31/17 06:27 03/31/17 06:27 Most recent lab results ABG pH 7.305 (7.35-7.45) L 03/25/17 16:55 ABG pCO2 32.5 MM HG (35-48) L 03/25/17 16:55 ABG pO2 90.4 MM HG (80-95) 03/25/17 16:55 ABG HCO3 15.8 MMOL/L (20-26) L 03/25/17 16:55 ABG O2 Saturation 96.2 % (95-100) 03/25/17 16:55 Calcium 8.2 MG/DL (8.5-10.1) L 03/31/17 06:27 Magnesium 2.0 MG/DL (1.8-2.4) 03/31/17 06:27 Assessment and Plan (1) Chronic renal failure Status: Acute Assessment and plan: 6-year-old woman with: * CRF. Baseline creatinine 1.6 * ARF. Resolved * DVT, left leg. On heparin * Hypertension * Seizure disorder * Cerebrovascular disease * Ileus Current Visit: No (2) Deep vein thrombosis (DVT) of left lower extremity Status: Acute Current Visit: Yes (3) Leukocytosis Status: Acute Current Visit: Yes (4) Acute kidney injury Status: Acute Current Visit: No (5) Partial epilepsy Status: Acute Current Visit: No (6) HTN (hypertension) Status: Chronic Current Visit: No (7) History of CVA (cerebrovascular accident) Status: Chronic Current Visit: No
--- NOTE | 2017-03-31 16:28 | Hospitalist Progress Note ---
Hospitalist: Subjective Interval history: 56-year-old female with DVT leg. She is awake and comfortable and has less abdominal pain today Exam - Constitutional Vitals: Period Temp Pulse Resp BP Sys/Cabrera Pulse Ox Last 24 Hr 97.5 F-98.7 F 76-82 16-22 106-158/58-74 97-99 Exam: General: No Acute Distress HEENT: Normocephalic, atraumatic, Extra ocular movements intact Neck: Supple, No JVD Chest: Clear to auscultation B/L CV: S1 + S2 audible without murmur, gallop or rub Abd: soft, NT, Non-distended, BS + Ext: Bilateral lower extremity swelling and edema, L > R Skin: No purpura, bruising or rash Rheumatologic: No Joint deformities Neurologic: Strength 5/5 all extremities, no gross sensory deficits Results - Labs CBC & BMP: 03/31/17 06:27 03/31/17 06:27 - Impressions Assessment and plan: Deep vein thrombosis (DVT) of left lower extremity Status: Acute Assessment and plan: Continue IV heparin. Switch to oral anticoagulants once ileus resolved. she does have IVC filter in place. Current Visit: Yes Ileus Status: Acute Assessment and plan: I have and encourage ambulation and physical therapy. Current Visit: Yes Hypokalemia Status: Acute Assessment and plan: She is now on scheduled potassium, monitoring metabolic profile Current Visit: Yes Acute kidney injury on chronic kidney disease 3 Status: Acute Assessment and plan: This was due to Bactrim. Creatinine improved and stable after holding Bactrim Current Visit: No Leukocytosis Status: Acute Current Visit: Yes Assessment and plan: She has significant leukocytosis on presentation, sepsis workup was negative. Leukocytosis has improved he does have some elevation of white count likely from the stress response Partial seizure disorder Status: Acute Assessment and plan: Stable on Tegretol 4 mg p.o. twice daily continue Current Visit: No Essential hypertension Status: Chronic Current Visit: No Assessment and plan: This is controlled on several blood pressure medications continue Discharge plan to home with physical therapy when ready
[2017-03-31] MEDS: ATORVASTATIN 10 MG TABLET PO SCH (21:11)
[2017-03-31] MEDS: POTASSIUM CHLORIDE 20 MEQ TABLET PO SCH (21:12)
[2017-04-01] MEDS: tiZANidine 4 MG TABLET PO PRN ×2 (01:42→13:22)
[2017-04-01 08:38] LABS: Osmolality,Calculated 284.8 MOS/KG (273-304); Potassium 2.7 MMOL/L (3.5-5.1)
--- NOTE | 2017-04-01 08:40 | Gastrointestinal Progress Note ---
<Kimberly Plata Diana - Last Filed: 04/01/17 08:37> Assessment and Plan (1) Abdominal pain Status: Acute Assessment and plan: 04/01-abdominal pain improved. Semi-formed stool with no further nausea vomiting. Hypokalemia noted. Stool studies are pending. She is being held n.p.o. at this time for possible angioplasty/stenting today. Following potential procedure, may start clear liquids. Plan an addendum to follow by Dr. White. 03/31-onset yesterday of abdominal pain with nausea and vomiting. Protracted hospital stay with inability to get up and ambulate. Hypokalemia on yesterday repleted with repeat potassium pending. KUB with findings of dilated small and large bowel noted. Patient to get out of bed today with physical therapy. Discussed with patient placement of NG tube if symptoms persist to alleviate nausea/vomiting and abdominal pain. Patient declines this at this time however will order as needed. Multiple watery stools daily. Check stool studies. Plan an addendum to follow by Dr. White. Current Visit: Yes Gastroenterology - PN: Subj Interval history: CC: Abdominal pain Patient is seen, awake and alert lying in bed with family at bedside. States that she is feeling somewhat better today. She states the abdominal pain is improved and she had a semi-formed stool this morning. She denies any nausea or vomiting as well. She also states she has been passing some flatus. She was unable to get out of bed yesterday due to scheduling with physical therapy. Patient is noted to have a potassium of 2.7 on yesterday and appears this was repleted the day prior. No recheck on potassium noticed this morning therefore this is been ordered and pending. We will plan to replete potassium if needed. Abdomen is soft, nontender. Bowel sounds are appreciated. ROS: Denies shortness of breath or chest pain Exam (Progress Note) - Constitutional Vitals: Period Temp Pulse Resp BP Sys/Cabrera Pulse Ox Last 24 Hr 98.2 F-99.0 F 68-100 16-20 136-172/67-84 96-99 General appearance: normal weight, no acute distress - Head Head exam: Present: normal inspection, normocephalic - Eye Eye exam: Present: other (Lids and identified unremarkable). Absent: scleral icterus - ENT ENT exam: Present: normal exam, normal oropharynx - Neck Neck exam: Present: normal inspection - Respiratory Respiratory exam: Present: clear to auscultation bilaterally. Absent: rales, rhonchi, wheezes - Cardiovascular Cardiovascular exam: Present: regular rate and rhythm. Absent: diastolic murmur , JVD, systolic murmur - GI/Abdominal GI/Abdominal exam: Present: normal bowel sounds, soft. Absent: ascites, distended, mass, organomegaly, tenderness - Extremities Exam Extremities exam: Present: normal inspection, full ROM - Back Exam Back exam: Present: normal inspection - Neurological Exam Neurological exam: Present: alert, oriented X3 - Psychiatric Psychiatric exam: Present: normal affect, normal mood - Skin Skin exam: Present: normal color, warm, dry Results - Labs CBC & BMP: 03/31/17 06:27 03/31/17 06:27 Lab Results: I have reviewed the past 24 hour labs <Alexis White - Last Filed: 04/01/17 10:33> Exam (Progress Note) - Constitutional Vitals: Period Temp Pulse Resp BP Sys/Cabrera Pulse Ox Last 24 Hr 98.2 F-99.0 F 68-100 16-20 136-172/67-84 96-99 Results - Labs CBC & BMP: 04/01/17 05:39 04/01/17 05:41
[2017-04-01 08:58] LABS: Basophils % 0.1 % (0.0-0.8); Eosinophils # 0.1 10*3/uL (0.0-0.87); Eosinophils % 0.5 % (0.00-10.9); Hematocrit 19.2 VOL% (35.7-47.0); Hemoglobin 6.7 GM/DL (12.0-16.0); Immature Granulocytes % 6.2 %; Immature Granulocytes Absolute 0.94 #; Lymphocytes % 12.8 % (21.3-54.2); Mean Corpuscular HGB Conc 34.9 GM/DL (32-36); Mean Corpuscular Hemoglobin 35 PG (27-34); Mean Platelet Volume 10.4 FL (9.6-12.0); Monocytes # 0.6 10*3/uL (0.11-0.8); Monocytes % 4.1 % (1.7-12.7); NRBC # 0.03 10*3/uL; Neutrophils # 11.7 10*3/uL (1.4-7.4); Neutrophils % 76.3 % (38.7-73.9); Platelet Count 299 T/CUMM (130-400); Red Blood Count 1.92 MC/CUMM (3.8-5.5); White Blood Count 15.3 T/CUMM (4-12)
[2017-04-01] MEDS: POTASSIUM CHLORIDE RIDER 10 MEQ in PREMIX 1 EACH IV PRN ×5 (09:15→23:58)
[2017-04-01 09:26] LABS: Hypochromasia 1+; Microcytosis 1+; Platelet Estimate Adequate
--- NOTE | 2017-04-01 10:21 | XRay Report ---
Exam: KUB Exam date: April 01, 2017 at 0909 hours Indication: Abdominal pain Comparison: March 30, 2017 at 2056 hours Findings: Dilated loops of large and small bowel demonstrate minimal improvement. No abnormal calcifications within the abdomen or pelvis. No acute osseous abnormalities. Impression: Minimal improvement in the dilated loops of air-filled large and small bowel suggesting adynamic process PROCEDURE INTERPRETED AT [facility] DEPARTMENT OF RADIOLOGY Final Report Signed by: Carson Handy
[2017-04-01] MEDS ORDERED: SODIUM CHLORIDE 0.9% 250 ML IV PRN ×2 (11:16→11:42)
[2017-04-01] MEDS: ESCITALOPRAM 10 MG TABLET PO SCH (13:21)
[2017-04-01] MEDS: carBAMazepine 200 MG TABLET PO SCH ×2 (13:21→22:41)
[2017-04-01] MEDS: amLODIPine 5 MG TABLET PO SCH (13:21)
[2017-04-01] MEDS: POTASSIUM CHLORIDE 20 MEQ TABLET PO SCH ×2 (13:22→22:41)
[2017-04-01] MEDS: TOPIRAMATE 25 MG TABLET PO SCH ×2 (13:22→22:41)
[2017-04-01] MEDS: SPIRONOLACTONE 25 MG TABLET PO SCH (13:22)
[2017-04-01] MEDS: PANTOPRAZOLE 40 MG TABLET PO SCH ×2 (13:23→22:42)
[2017-04-01] MEDS: ONDANSETRON 4 MG/2 ML VIAL IV PRN ×2 (13:23→22:52)
[2017-04-01] MEDS: POLYETHYLENE GLYCOL POWDER 17 GM PACK PO SCH ×2 (13:23→22:42)
[2017-04-01] MEDS: DOCUSATE SODIUM 100 MG CAPSULE PO SCH ×2 (13:23→22:42)
[2017-04-01] MEDS: POTASSIUM CHLORIDE INJ 40 MEQ in LACTATED RINGERS 1,000 ML IV SCH (13:24)
[2017-04-01] MEDS: HEPARIN DRIP 25,000 UNITS/500 ML PREMIX IV SCH (13:27)
--- NOTE | 2017-04-01 14:27 | Nephrology Progress Note ---
Nephrology - PN: Subj Interval history: Abdominal discomfort improved. No nausea or vomiting. No shortness of breath. Exam (PN)-Nephrology - Vital Signs Vital signs: Period Temp Pulse Resp BP Sys/Cabrera Pulse Ox Last 24 Hr 97.9 F-99.0 F 65-100 16-20 124-172/59-84 95-100 Exam: ENT: Normal Cardiovascular: Regular rate and rhythm. No murmur rub or gallop Lungs: Clear Extremities: 2+ left leg edema - Lab 04/01/17 05:39 04/01/17 05:41 Most recent lab results ABG pH 7.305 (7.35-7.45) L 03/25/17 16:55 ABG pCO2 32.5 MM HG (35-48) L 03/25/17 16:55 ABG pO2 90.4 MM HG (80-95) 03/25/17 16:55 ABG HCO3 15.8 MMOL/L (20-26) L 03/25/17 16:55 ABG O2 Saturation 96.2 % (95-100) 03/25/17 16:55 Calcium 8.0 MG/DL (8.5-10.1) L 04/01/17 05:41 Magnesium 2.0 MG/DL (1.8-2.4) 03/31/17 06:27 Assessment and Plan (1) Chronic renal failure Status: Acute Assessment and plan: 6-year-old woman with: * CRF. Baseline creatinine 1.6 * ARF. Resolved * DVT, left leg. On heparin * Hypertension * Seizure disorder * Cerebrovascular disease * Anemia. She is to be transfused today Current Visit: No (2) Deep vein thrombosis (DVT) of left lower extremity Status: Acute Current Visit: Yes (3) Leukocytosis Status: Acute Current Visit: Yes (4) Acute kidney injury Status: Acute Current Visit: No (5) Partial epilepsy Status: Acute Current Visit: No (6) HTN (hypertension) Status: Chronic Current Visit: No (7) History of CVA (cerebrovascular accident) Status: Chronic Current Visit: No
--- NOTE | 2017-04-01 16:36 | Hospitalist Progress Note ---
Hospitalist: Subjective Interval history: 56-year-old female with DVT leg. She is awake and comfortable and has less abdominal pain today Exam - Constitutional Vitals: Period Temp Pulse Resp BP Sys/Cabrera Pulse Ox Last 24 Hr 97.4 F-99.0 F 58-100 16-20 103-172/49-84 95-100 Exam: General: No Acute Distress HEENT: Normocephalic, atraumatic, Extra ocular movements intact Neck: Supple, No JVD Chest: Clear to auscultation B/L CV: S1 + S2 audible without murmur, gallop or rub Abd: soft, NT, Non-distended, BS + Ext: Bilateral lower extremity swelling and edema, L > R Skin: No purpura, bruising or rash Rheumatologic: No Joint deformities Neurologic: Strength 5/5 all extremities, no gross sensory deficits Results - Labs CBC & BMP: 04/01/17 05:39 04/01/17 14:07 - Impressions Assessment and plan: Deep vein thrombosis (DVT) of left lower extremity Status: Acute Assessment and plan: Continue IV heparin. Switch to oral anticoagulants once ileus resolved. she does have IVC filter in place. Current Visit: Yes Ileus Status: Acute Assessment and plan: I have and encourage ambulation and physical therapy. Current Visit: Yes Hypokalemia Status: Acute Assessment and plan: She is now on scheduled potassium, monitoring metabolic profile Current Visit: Yes Acute kidney injury on chronic kidney disease 3 Status: Acute Assessment and plan: This was due to Bactrim. Creatinine improved and stable after holding Bactrim Current Visit: No Leukocytosis Status: Acute Current Visit: Yes Assessment and plan: She has significant leukocytosis on presentation, sepsis workup was negative. Leukocytosis has improved he does have some elevation of white count likely from the stress response Partial seizure disorder Status: Acute Assessment and plan: Stable on Tegretol 4 mg p.o. twice daily continue Current Visit: No Essential hypertension Status: Chronic Current Visit: No Assessment and plan: This is controlled on several blood pressure medications continue Discharge plan to home with physical therapy when ready
--- NOTE | 2017-04-01 17:33 | Event Note ---
Patient seen again today and reportedly is doing well with physical therapy. Patient needs aggressive physical therapy and encouragement to get up and out of the bed. I feel that some of her deconditioning is contributing to the prolonged course of her hospitalization and slow recovery. She continues to have marginal improvement with the IV heparin without evidence of acute hemorrhage. However of note, her blood counts did drop somewhat today and this is being addressed with packed red cells by the primary service. She continues to have left lower extremity swelling but this is significantly improved. There is now very little pain with movement and palpation. I agree that current care is appropriate and continued encouragement to get up and out of the bed is needed. I do not feel at this time there is any further indication for catheter directed lysis of the DVT and will sign off. Please call with any questions.
[2017-04-01] MEDS: ATORVASTATIN 10 MG TABLET PO SCH (22:41)
[2017-04-02] MEDS: POTASSIUM CHLORIDE RIDER 10 MEQ in PREMIX 1 EACH IV PRN ×3 (00:59→03:58)
[2017-04-02] MEDS: POTASSIUM CHLORIDE INJ 40 MEQ in LACTATED RINGERS 1,000 ML IV SCH ×2 (02:39→16:55)
[2017-04-02] MEDS: HEPARIN DRIP 25,000 UNITS/500 ML PREMIX IV SCH ×2 (08:42→16:56)
[2017-04-02] MEDS: ONDANSETRON 4 MG/2 ML VIAL IV PRN ×2 (08:46→16:55)
[2017-04-02] MEDS: carBAMazepine 200 MG TABLET PO SCH ×2 (08:47→20:56)
[2017-04-02] MEDS: ESCITALOPRAM 10 MG TABLET PO SCH (08:47)
[2017-04-02] MEDS: TOPIRAMATE 25 MG TABLET PO SCH ×2 (08:48→20:58)
[2017-04-02] MEDS: SPIRONOLACTONE 25 MG TABLET PO SCH (08:48)
[2017-04-02] MEDS: PANTOPRAZOLE 40 MG TABLET PO SCH ×2 (08:48→20:56)
[2017-04-02] MEDS: POTASSIUM CHLORIDE 20 MEQ TABLET PO SCH ×2 (08:48→20:57)
[2017-04-02] MEDS: DOCUSATE SODIUM 100 MG CAPSULE PO SCH ×2 (08:50→20:58)
[2017-04-02] MEDS: POLYETHYLENE GLYCOL POWDER 17 GM PACK PO SCH (08:50)
[2017-04-02 10:12] LABS: Basophils % 0.2 % (0.0-0.8); Eosinophils # 0.1 10*3/uL (0.0-0.87); Eosinophils % 0.5 % (0.00-10.9); Hematocrit 29.3 VOL% (35.7-47.0); Immature Granulocytes Absolute 1.65 #; Lymphocytes # 2.4 10*3/uL (1.4-4.0); Lymphocytes % 14.7 % (21.3-54.2); Mean Corpuscular HGB Conc 34.5 GM/DL (32-36); Mean Corpuscular Hemoglobin 33 PG (27-34); Mean Platelet Volume 10.1 FL (9.6-12.0); Monocytes # 0.8 10*3/uL (0.11-0.8); Monocytes % 4.8 % (1.7-12.7); NRBC # 0.04 10*3/uL; Neutrophils # 11.6 10*3/uL (1.4-7.4); Neutrophils % 69.8 % (38.7-73.9); Platelet Count 284 T/CUMM (130-400); White Blood Count 16.6 T/CUMM (4-12)
[2017-04-02 10:16] LABS: Hemoglobin 10.1 GM/DL (12.0-16.0); Red Blood Count 3.02 MC/CUMM (3.8-5.5)
[2017-04-02 10:39] LABS: Band Neutrophils 1 % (0-10); Hypochromasia 1+; Lymphocytes 18 % (20-55); Segmented Neutrophils 74 % (50-85); Total Cells Counted 100
[2017-04-02 10:40] LABS: Anisocytosis 1+; Macrocytosis 1+; Ovalocytes Slight
[2017-04-02] MEDS: amLODIPine 5 MG TABLET PO SCH (10:41)
[2017-04-02 11:14] LABS: Calcium 8.2 MG/DL (8.5-10.1); Potassium 3.4 MMOL/L (3.5-5.1)
--- NOTE | 2017-04-02 15:21 | Hospitalist Progress Note ---
Hospitalist: Subjective Interval history: Patient is awake and alert, denies abdominal pain, is moving her bowels Exam - Constitutional Vitals: Period Temp Pulse Resp BP Sys/Cabrera Pulse Ox Last 24 Hr 97.4 F-98.9 F 18-70 16-22 103-153/49-72 95-100 Exam: General: No Acute Distress HEENT: Normocephalic, atraumatic, Extra ocular movements intact Neck: Supple, No JVD Chest: Clear to auscultation B/L CV: S1 + S2 audible without murmur, gallop or rub Abd: soft, NT, Non-distended, BS + Ext: Bilateral lower extremity swelling and edema, L > R Skin: No purpura, bruising or rash Rheumatologic: No Joint deformities Neurologic: Strength 5/5 all extremities, no gross sensory deficits Results - Labs CBC & BMP: 04/02/17 10:05 04/02/17 10:05 - Impressions Assessment and plan: Deep vein thrombosis (DVT) of left lower extremity Status: Acute Assessment and plan: Continue IV heparin. Switch to oral anticoagulants once ileus resolved. she does have IVC filter in place. Current Visit: Yes Ileus Status: Acute Assessment and plan: I have and encourage ambulation and physical therapy. Current Visit: Yes Hypokalemia Status: Acute Assessment and plan: She is now on scheduled potassium, monitoring metabolic profile, this is improving Current Visit: Yes Acute kidney injury on chronic kidney disease 3 Status: Acute Assessment and plan: This was due to Bactrim. Creatinine improved and stable after holding Bactrim Current Visit: No Leukocytosis Status: Acute Current Visit: Yes Assessment and plan: She has significant leukocytosis on presentation, sepsis workup was negative. Leukocytosis has improved he does have some elevation of white count likely from the stress response Partial seizure disorder Status: Acute Assessment and plan: Stable on Tegretol 4 mg p.o. twice daily continue Current Visit: No Essential hypertension Status: Chronic Current Visit: No Assessment and plan: This is controlled on several blood pressure medications continue Discharge plan to home with physical therapy when ready
--- NOTE | 2017-04-02 16:41 | XRay Report ---
History: Ileus Date: 04/02/2017 Study: KUB Comparison exam: 04/01/2017 There is continued gaseous distention of large and small bowel similar to the previous study. IVC filter overlies the region of the inferior vena cava at the L1-L2 level. The osseous structures are unchanged. Impression: Continued ileus without significant change from the previous study PROCEDURE INTERPRETED AT [facility] DEPARTMENT OF RADIOLOGY Final Report Signed by: Dr. Cherelle Gunter
[2017-04-02] MEDS: POTASSIUM CHLORIDE 20 MEQ TABLET PO PRN ×3 (18:28→23:22)
--- NOTE | 2017-04-02 19:08 | Nephrology Progress Note ---
Nephrology - PN: Subj Interval history: The patient is resting comfortably. She is visiting with family. Renal function is stable at 1.5 serum creatinine. No shortness of breath or chest pain. Exam (PN)-Nephrology - Vital Signs Vital signs: Period Temp Pulse Resp BP Sys/Cabrera Pulse Ox Last 24 Hr 97.5 F-98.8 F 18-72 16-22 125-161/61-77 97-100 - General Appearance General appearance: well-developed, well-nourished EENT: ATNC Neck: supple Respiratory: clear Cardiology: no edema, regular rate, regular rhythm Gastrointestinal: no tenderness Neurologic: alert and oriented x3 Musculoskeletal: no clubbing Psychiatric: mood/affect appropriate, cooperative - Lab 04/02/17 10:05 04/02/17 10:05 Most recent lab results ABG pH 7.305 (7.35-7.45) L 03/25/17 16:55 ABG pCO2 32.5 MM HG (35-48) L 03/25/17 16:55 ABG pO2 90.4 MM HG (80-95) 03/25/17 16:55 ABG HCO3 15.8 MMOL/L (20-26) L 03/25/17 16:55 ABG O2 Saturation 96.2 % (95-100) 03/25/17 16:55 Calcium 8.2 MG/DL (8.5-10.1) L 04/02/17 10:05 Magnesium 2.0 MG/DL (1.8-2.4) 03/31/17 06:27 Assessment and Plan (1) HTN (hypertension) Status: Chronic Current Visit: No Qualifiers: Hypertension type: essential hypertension Qualified Code(s): I10 - Essential (primary) hypertension (2) Acute kidney injury Status: Resolved Assessment and plan: Renal function is stable. Current Visit: No
[2017-04-02] MEDS: ATORVASTATIN 10 MG TABLET PO SCH (20:57)
[2017-04-03] MEDS: POTASSIUM CHLORIDE INJ 40 MEQ in LACTATED RINGERS 1,000 ML IV SCH ×3 (00:25→14:45)
[2017-04-03] MEDS: ONDANSETRON 4 MG/2 ML VIAL IV PRN ×4 (02:00→20:53)
[2017-04-03] MEDS: HEPARIN DRIP 25,000 UNITS/500 ML PREMIX IV SCH ×3 (03:40→23:38)
[2017-04-03 06:56] LABS: Basophils % 0.2 % (0.0-0.8); Eosinophils # 0.1 10*3/uL (0.0-0.87); Eosinophils % 0.4 % (0.00-10.9); Hematocrit 27.7 VOL% (35.7-47.0); Hemoglobin 9.5 GM/DL (12.0-16.0); Immature Granulocytes Absolute 1.49 #; Lymphocytes # 2.6 10*3/uL (1.4-4.0); Lymphocytes % 17.6 % (21.3-54.2); Mean Corpuscular HGB Conc 34.3 GM/DL (32-36); Mean Corpuscular Hemoglobin 34 PG (27-34); Mean Corpuscular Volume 97.5 FL (87-102); Mean Platelet Volume 10.6 FL (9.6-12.0); Monocytes # 0.8 10*3/uL (0.11-0.8); Monocytes % 5.5 % (1.7-12.7); NRBC # 0.04 10*3/uL; Neutrophils # 9.9 10*3/uL (1.4-7.4); Neutrophils % 66.3 % (38.7-73.9); Platelet Count 231 T/CUMM (130-400); Red Blood Count 2.84 MC/CUMM (3.8-5.5); Red Cell Distribution Width 21.6 % (9.3-17.3); White Blood Count 14.9 T/CUMM (4-12)
[2017-04-03 07:24] LABS: Calcium 8.2 MG/DL (8.5-10.1); Osmolality,Calculated 284.7 MOS/KG (273-304); Potassium 3.3 MMOL/L (3.5-5.1)
[2017-04-03 07:53] LABS: Band Neutrophils 2 % (0-10); Eosinophils 2 % (0-10); Lymphocytes 16 % (20-55); Metamyelocytes 1 %; Myelocytes 1 %; Segmented Neutrophils 71 % (50-85); Total Cells Counted 100
[2017-04-03 07:54] LABS: Macrocytosis 1+; Platelet Estimate Normal
[2017-04-03] MEDS: DOCUSATE SODIUM 100 MG CAPSULE PO SCH (10:00)
[2017-04-03] MEDS: TOPIRAMATE 25 MG TABLET PO SCH ×2 (10:00→21:22)
[2017-04-03] MEDS: amLODIPine 5 MG TABLET PO SCH (10:00)
[2017-04-03] MEDS: carBAMazepine 200 MG TABLET PO SCH ×2 (10:00→21:21)
[2017-04-03] MEDS: SPIRONOLACTONE 25 MG TABLET PO SCH (10:00)
[2017-04-03] MEDS: ESCITALOPRAM 10 MG TABLET PO SCH (10:00)
[2017-04-03] MEDS: POTASSIUM CHLORIDE 20 MEQ TABLET PO SCH ×2 (10:01→21:21)
[2017-04-03] MEDS: PANTOPRAZOLE 40 MG TABLET PO SCH ×2 (10:01→21:22)
[2017-04-03] MEDS: POTASSIUM CHLORIDE 20 MEQ TABLET PO PRN ×4 (10:01→23:38)
--- NOTE | 2017-04-03 10:40 | Nephrology Progress Note ---
Nephrology - PN: Subj Interval history: The patient is resting comfortably. She is visiting with family. Renal function is stable at 1.5 serum creatinine. No shortness of breath or chest pain. 04/03/2017. The patient is resting comfortably. Renal function is stable at 1.5. No other acute changes. Exam (PN)-Nephrology - Vital Signs Vital signs: Period Temp Pulse Resp BP Sys/Cabrera Pulse Ox Last 24 Hr 97.9 F-98.9 F 18-77 16-21 154-163/73-78 90-99 - General Appearance General appearance: well-developed, well-nourished EENT: ATNC Neck: supple Respiratory: clear Cardiology: regular rate, regular rhythm Gastrointestinal: normoactive bowel sounds, no tenderness Neurologic: alert and oriented x3 Musculoskeletal: no deformities Psychiatric: mood/affect appropriate, cooperative - Lab 04/03/17 06:22 04/03/17 06:22 Most recent lab results ABG pH 7.305 (7.35-7.45) L 03/25/17 16:55 ABG pCO2 32.5 MM HG (35-48) L 03/25/17 16:55 ABG pO2 90.4 MM HG (80-95) 03/25/17 16:55 ABG HCO3 15.8 MMOL/L (20-26) L 03/25/17 16:55 ABG O2 Saturation 96.2 % (95-100) 03/25/17 16:55 Calcium 8.2 MG/DL (8.5-10.1) L 04/03/17 06:22 Magnesium 2.0 MG/DL (1.8-2.4) 03/31/17 06:27 Assessment and Plan (1) HTN (hypertension) Status: Chronic Current Visit: No Qualifiers: Hypertension type: essential hypertension Qualified Code(s): I10 - Essential (primary) hypertension
--- NOTE | 2017-04-03 13:19 | Hospitalist Progress Note ---
Hospitalist: Subjective Interval history: Patient is awake and alert, denies abdominal pain, is moving her bowels Exam - Constitutional Vitals: Period Temp Pulse Resp BP Sys/Cabrera Pulse Ox Last 24 Hr 97.9 F-98.9 F 63-77 16-21 150-163/73-78 90-99 Exam: General: No Acute Distress HEENT: Normocephalic, atraumatic, Extra ocular movements intact Neck: Supple, No JVD Chest: Clear to auscultation B/L CV: S1 + S2 audible without murmur, gallop or rub Abd: soft, NT, Non-distended, BS + Ext: Bilateral lower extremity swelling and edema, L > R Skin: No purpura, bruising or rash Rheumatologic: No Joint deformities Neurologic: Strength 5/5 all extremities, no gross sensory deficits Results - Labs CBC & BMP: 04/03/17 06:22 04/03/17 06:22 - Impressions Assessment and plan: Deep vein thrombosis (DVT) of left lower extremity Status: Acute Assessment and plan: Continue IV heparin. Switch to oral anticoagulants once ileus resolved. she does have IVC filter in place. Current Visit: Yes Ileus Status: Acute Assessment and plan: I have and encourage ambulation and physical therapy, and this will help resolve ileus Current Visit: Yes Hypokalemia Status: Acute Assessment and plan: She is now on scheduled potassium, monitoring metabolic profile, this is improving Current Visit: Yes Acute kidney injury on chronic kidney disease 3 Status: Acute Assessment and plan: This was due to Bactrim. Creatinine improved and stable after holding Bactrim Current Visit: No Leukocytosis Status: Acute Current Visit: Yes Assessment and plan: She has significant leukocytosis on presentation, sepsis workup was negative. Leukocytosis has improved he does have some elevation of white count likely from the stress response Partial seizure disorder Status: Acute Assessment and plan: Stable on Tegretol 4 mg p.o. twice daily continue Current Visit: No Essential hypertension Status: Chronic Current Visit: No Assessment and plan: This is controlled on several blood pressure medications continue Discharge plan to home with physical therapy when ready
[2017-04-03] MEDS: ATORVASTATIN 10 MG TABLET PO SCH (21:22)
[2017-04-04] MEDS: ONDANSETRON 4 MG/2 ML VIAL IV PRN ×2 (01:36→10:41)
[2017-04-04] MEDS: POTASSIUM CHLORIDE 20 MEQ TABLET PO PRN ×2 (01:36→10:14)
[2017-04-04] MEDS: POTASSIUM CHLORIDE INJ 40 MEQ in LACTATED RINGERS 1,000 ML IV SCH ×2 (05:54→06:22)
[2017-04-04 07:37] LABS: Calcium 8.5 MG/DL (8.5-10.1); Potassium 3.8 MMOL/L (3.5-5.1)
--- NOTE | 2017-04-04 09:04 | Gastrointestinal Progress Note ---
<Kimberly Plata Diana - Last Filed: 04/04/17 09:02> Assessment and Plan (1) Abdominal pain Status: Acute Assessment and plan: 04/04-no further abdominal pain. Having watery continuous stools. Stool studies negative. Episodes of nausea and vomiting over the weekend with eating. Electrolytes corrected. No overt bleeding and H&H stable. Repeat KUB and change back to clear liquid diet at this time. Physical therapy to continue to work with patient. Plan an addendum to followed by Dr. White. 04/01-abdominal pain improved. Semi-formed stool with no further nausea vomiting. Hypokalemia noted. Stool studies are pending. She is being held n.p.o. at this time for possible angioplasty/stenting today. Following potential procedure, may start clear liquids. Plan an addendum to follow by Dr. White. 03/31-onset yesterday of abdominal pain with nausea and vomiting. Protracted hospital stay with inability to get up and ambulate. Hypokalemia on yesterday repleted with repeat potassium pending. KUB with findings of dilated small and large bowel noted. Patient to get out of bed today with physical therapy. Discussed with patient placement of NG tube if symptoms persist to alleviate nausea/vomiting and abdominal pain. Patient declines this at this time however will order as needed. Multiple watery stools daily. Check stool studies. Plan an addendum to follow by Dr. White. Current Visit: Yes Gastroenterology - PN: Subj Interval history: Cc: Ileus Patient is seen, awake and alert. States she did not rest well overnight. States she has had several episodes of nausea and vomiting throughout the weekend. She also states that she is having continued watery stools but she does deny any overt bleeding. She denies any abdominal pain. States she is not passing flatus other than when she does have a little loose stool. Her electrolytes have been corrected with potassium 3.8. Last H&H was 9.5/27.7. She states she has not been ambulating with physical therapy at this time. Discussed with nursing staff regarding frequency of her therapy and they will further inquire today regarding the treatment plan. Abdomen is soft, nontender. Hypoactive bowel sounds noted at best. ROS: Denies shortness breath or chest pain Exam (Progress Note) - Constitutional Vitals: Period Temp Pulse Resp BP Sys/Cabrera Pulse Ox Last 24 Hr 97.6 F-98.5 F 63-82 18-21 150-167/72-80 94-99 General appearance: normal weight, no acute distress - Head Head exam: Present: normal inspection, normocephalic - Eye Eye exam: Present: other (Lids and conjunctive are unremarkable). Absent: scleral icterus - ENT ENT exam: Present: normal exam, normal oropharynx - Neck Neck exam: Present: normal inspection - Respiratory Respiratory exam: Present: clear to auscultation bilaterally. Absent: rales, rhonchi, wheezes - Cardiovascular Cardiovascular exam: Present: regular rate and rhythm. Absent: diastolic murmur , JVD, systolic murmur - GI/Abdominal GI/Abdominal exam: Present: hypoactive bowel sounds, soft. Absent: ascites, distended, mass, organomegaly, tenderness - Extremities Exam Extremities exam: Present: normal inspection, full ROM - Back Exam Back exam: Present: normal inspection - Neurological Exam Neurological exam: Present: alert, oriented X3 - Psychiatric Psychiatric exam: Present: normal affect, normal mood - Skin Skin exam: Present: normal color, warm, dry Results - Labs CBC & BMP: 04/03/17 06:22 04/04/17 06:21 Lab Results: I have reviewed the past 24 hour labs <Alexis White - Last Filed: 04/04/17 18:27> Exam (Progress Note) - Constitutional Vitals: Period Temp Pulse Resp BP Sys/Cabrera Pulse Ox Last 24 Hr 97.5 F-98.5 F 60-82 18-21 149-167/72-80 96-99 Results - Labs CBC & BMP: 04/03/17 06:22 04/04/17 06:21
--- NOTE | 2017-04-04 09:45 | XRay Report ---
XR KUB Indication: Ileus Comparison: 02 April 2017 Findings: No free fluid or free air seen. Increased small bowel caliber is present, slightly improved from previous study. Remaining bowel gas pattern appears within normal limits. No abnormal calcifications are present. IVC filter is unchanged in position. No other abnormality is identified. Impression: Slight improvement of small bowel distention. No other significant change. PROCEDURE INTERPRETED AT [facility] DEPARTMENT OF RADIOLOGY Final Report Signed by: Dr. Andrae Dumas
[2017-04-04] MEDS: carBAMazepine 200 MG TABLET PO SCH ×2 (10:13→21:15)
[2017-04-04] MEDS: CARVEDILOL 12.5 MG TABLET PO SCH ×2 (10:13→21:16)
[2017-04-04] MEDS: ESCITALOPRAM 10 MG TABLET PO SCH (10:14)
[2017-04-04] MEDS: POTASSIUM CHLORIDE 20 MEQ TABLET PO SCH ×2 (10:14→21:17)
[2017-04-04] MEDS: TOPIRAMATE 25 MG TABLET PO SCH ×2 (10:14→21:16)
[2017-04-04] MEDS: SPIRONOLACTONE 25 MG TABLET PO SCH (10:14)
[2017-04-04] MEDS: PANTOPRAZOLE 40 MG TABLET PO SCH ×2 (10:15→21:17)
[2017-04-04] MEDS: HEPARIN DRIP 25,000 UNITS/500 ML PREMIX IV SCH (15:06)
--- NOTE | 2017-04-04 15:08 | Hospitalist Progress Note ---
Hospitalist: Subjective Interval history: Patient still has occasional abdominal pain with some nausea, still has diarrhea despite holding MiraLAX and Colace. Electrolytes are better and KUB shows improving ileus, she is on liquid diet Exam - Constitutional Vitals: Period Temp Pulse Resp BP Sys/Cabrera Pulse Ox Last 24 Hr 97.6 F-98.5 F 64-82 18-21 149-167/72-80 96-99 Exam: General: No Acute Distress HEENT: Normocephalic, atraumatic, Extra ocular movements intact Neck: Supple, No JVD Chest: Clear to auscultation B/L CV: S1 + S2 audible without murmur, gallop or rub Abd: soft, NT, Non-distended, BS + Ext: Bilateral lower extremity swelling and edema, L > R Skin: No purpura, bruising or rash Rheumatologic: No Joint deformities Neurologic: Strength 5/5 all extremities, no gross sensory deficits Results - Labs CBC & BMP: 04/03/17 06:22 04/04/17 06:21 - Impressions Assessment and plan: Deep vein thrombosis (DVT) of left lower extremity Status: Acute Assessment and plan: Continue IV heparin. Switch to oral anticoagulants once ileus resolved. she does have IVC filter in place. Current Visit: Yes Ileus Status: Acute Assessment and plan: I have and encourage ambulation and physical therapy, and this will help resolve ileus. KUB done 04/04 shows improving ileus Current Visit: Yes Hypokalemia Status: Acute Assessment and plan: She is now on scheduled potassium, monitoring metabolic profile, thiis problem has improved Current Visit: Yes Acute kidney injury on chronic kidney disease 3 Status: Acute Assessment and plan: This was due to Bactrim. Creatinine improved and stable after holding Bactrim Current Visit: No Leukocytosis Status: Acute Current Visit: Yes Assessment and plan: She has significant leukocytosis on presentation, sepsis workup was negative. Leukocytosis has improved he does have some elevation of white count likely from the stress response, leukocytosis has improved Partial seizure disorder Status: Acute Assessment and plan: Stable on Tegretol 4 mg p.o. twice daily continue Current Visit: No Essential hypertension Status: Chronic Current Visit: No Assessment and plan: This was uncontrolled, I have adjusted her blood pressure medicines 04/04, continue to monitor blood pressure Discharge plan to home with physical therapy when ready
[2017-04-04] MEDS: ACETAMINOPHEN 325 MG TABLET PO PRN (21:16)
[2017-04-04] MEDS: ATORVASTATIN 10 MG TABLET PO SCH (21:17)
--- NOTE | 2017-04-04 23:41 | Nephrology Progress Note ---
Nephrology - PN: Subj Interval history: No shortness of breath or chest pain. Intermittent nausea Exam (PN)-Nephrology - Vital Signs Vital signs: Period Temp Pulse Resp BP Sys/Cabrera Pulse Ox Last 24 Hr 97.0 F-98.5 F 60-82 18-21 149-167/72-82 96-99 Exam: ENT: Normal Cardiovascular: Regular rate and rhythm. No murmur rub or gallop Lungs: Clear Extremities: 1-2+ left leg edema - Lab 04/03/17 06:22 04/04/17 06:21 Most recent lab results ABG pH 7.305 (7.35-7.45) L 03/25/17 16:55 ABG pCO2 32.5 MM HG (35-48) L 03/25/17 16:55 ABG pO2 90.4 MM HG (80-95) 03/25/17 16:55 ABG HCO3 15.8 MMOL/L (20-26) L 03/25/17 16:55 ABG O2 Saturation 96.2 % (95-100) 03/25/17 16:55 Calcium 8.5 MG/DL (8.5-10.1) 04/04/17 06:21 Magnesium 2.0 MG/DL (1.8-2.4) 03/31/17 06:27 Assessment and Plan (1) Chronic renal failure Status: Acute Assessment and plan: 6-year-old woman with: * CRF. Baseline creatinine 1.6 * ARF. Resolved. I will sign off. Please recall as needed * DVT, left leg. On heparin * Hypertension * Seizure disorder * Cerebrovascular disease * Anemia. * Nausea and vomiting. EGD tomorrow Current Visit: No (2) Deep vein thrombosis (DVT) of left lower extremity Status: Acute Current Visit: Yes (3) Leukocytosis Status: Acute Current Visit: Yes (4) Acute kidney injury Status: Resolved Current Visit: No (5) Partial epilepsy Status: Acute Current Visit: No (6) HTN (hypertension) Status: Chronic Current Visit: No Qualifiers: Hypertension type: essential hypertension Qualified Code(s): I10 - Essential (primary) hypertension (7) History of CVA (cerebrovascular accident) Status: Chronic Current Visit: No
[2017-04-05 08:16] LABS: Calcium 8.4 MG/DL (8.5-10.1); Potassium 3.4 MMOL/L (3.5-5.1)
[2017-04-05 08:19] LABS: Basophils % 0.1 % (0.0-0.8); Eosinophils % 0.4 % (0.00-10.9); Hematocrit 29.4 VOL% (35.7-47.0); Hemoglobin 10.1 GM/DL (12.0-16.0); Immature Granulocytes % 7.2 %; Immature Granulocytes Absolute 0.81 #; Lymphocytes % 18.1 % (21.3-54.2); Mean Corpuscular HGB Conc 34.4 GM/DL (32-36); Mean Corpuscular Hemoglobin 33 PG (27-34); Mean Corpuscular Volume 97.4 FL (87-102); Monocytes # 0.9 10*3/uL (0.11-0.8); Monocytes % 7.9 % (1.7-12.7); NRBC # 0.02 10*3/uL; Neutrophils # 7.4 10*3/uL (1.4-7.4); Neutrophils % 66.3 % (38.7-73.9); Platelet Count 204 T/CUMM (130-400); Red Blood Count 3.02 MC/CUMM (3.8-5.5); White Blood Count 11.2 T/CUMM (4-12)
[2017-04-05 08:40] LABS: Band Neutrophils 1 % (0-10); Burr Cells Slight; Hypochromasia 1+; Lymphocytes 12 % (20-55); Microcytosis Slight; Platelet Estimate Adequate; Segmented Neutrophils 77 % (50-85); Total Cells Counted 100
[2017-04-05] MEDS ORDERED: HEPARIN DRIP 25,000 UNITS/500 ML PREMIX IV SCH (10:30)
[2017-04-05] MEDS ORDERED: LIDOCAINE 2% 5 ML VIAL ONE (11:57)
[2017-04-05] MEDS ORDERED: PROPOFOL 200 MG/20 ML VIAL IV ONE (11:57)
--- NOTE | 2017-04-05 11:59 | History and Physical Update ---
History and Physical Update - Physical Exam Mental Status: alert and oriented Heart: regular rate and rhythm Lung: clear to auscultation Abdomen: within normal limits Vitals: within normal limits
--- NOTE | 2017-04-05 12:08 | Operative Note ---
Date of procedure: 04/05/17 Pre-op diagnosis: Epigastric pain with nausea and Procedure: EGD 56-year-old female with epigastric pain nausea vomiting now for EGD to further evaluate. Informed symptoms obtained the patient She was sedated with MAC anesthesia per anesthesia protocol. The patient was placed in left lateral decubitus position the Olympus flexible video upper endoscope was inserted into the oral cavity under direct vision the esophagus intubated. Findings esophagus-normal esophageal mucosa no Arteaga's no candidate was identified. There is a small hiatal hernia. Stomach-normal insufflation normal mucosa to direct retroflexed views of the body fundus cardia and antrum the stomach. Pylorus-normal Duodenum-normal for the bulb duodenum to the third portion of duodenum. The procedure terminated placed our procedure well she is discharged recovery in good condition. Postop diagnosis: 1. Gastroesophageal reflux disease with small hiatal hernia-continue PPI treatment antireflux precautions. Continue antiemetics as needed. Anesthesia: MAC Surgeon / Physician: Alexis White Specimens: none sent Condition: stable Disposition: post procedure unit Results - Labs CBC & BMP: 04/05/17 07:01 04/05/17 07:01 Discharge Plan - Discharge Medications No Action Albuterol Inhaler [Proventil Inhaler] 2 puff INH Q4H PRN #1 inhaler PRN Reason: Shortness Of Breath/Wheezing Atorvastatin [Lipitor] 10 mg PO BEDTIME Tramadol HCl [Tramadol Tab] 50 mg PO Q6H PRN PRN Reason: Pain Tizanidine HCl 4 mg PO Q8H PRN PRN Reason: Muscle Spasm Sulfameth/Trimeth 800-160 Tab [Bactrim DS Tab] 1 tablet PO BID #14 tablet traZODone [Desyrel] 50 mg PO BEDTIME Escitalopram [Lexapro] 20 mg PO DAILY NIFEdipine XL TAB [Procardia Xl] 60 mg PO DAILY Topiramate 50 mg PO BID carBAMazepine [Carbatrol] 200 mg PO BID amLODIPine [Norvasc] 5 mg PO DAILY #30 tablet HYDROcodone/ACETAMIN 5-325 [[place] 5-325] 1 tablet PO Q4H #20 tablet Pantoprazole Tab [Protonix Tab] 40 mg PO DAILY #30 tablet - Follow Up or Referral - Forms/Instructions
--- NOTE | 2017-04-05 12:11 | Anesthesia Post-Op ---
Anesthesia Post OP - Post Ansesthetic Evaluation Patient seen in post op: Yes Resp: within normal limits CV: within normal limits Mental: within normal limits Temp: within normal limits [id number]: within normal limits Nausea and Vomiting: within normal limits Pain: within normal limits
[2017-04-05] MEDS: POTASSIUM CHLORIDE 20 MEQ TABLET PO SCH ×2 (14:26→21:05)
[2017-04-05] MEDS: ESCITALOPRAM 10 MG TABLET PO SCH (14:26)
[2017-04-05] MEDS: carBAMazepine 200 MG TABLET PO SCH ×2 (14:26→21:05)
[2017-04-05] MEDS: POTASSIUM CHLORIDE 20 MEQ TABLET PO PRN (14:26)
[2017-04-05] MEDS: PANTOPRAZOLE 40 MG TABLET PO SCH ×2 (14:27→21:05)
[2017-04-05] MEDS: CARVEDILOL 12.5 MG TABLET PO SCH ×2 (14:27→21:06)
[2017-04-05] MEDS: TOPIRAMATE 25 MG TABLET PO SCH ×2 (14:27→21:05)
[2017-04-05] MEDS: HEPARIN DRIP 25,000 UNITS/500 ML PREMIX IV SCH (14:38)
--- NOTE | 2017-04-05 15:16 | Hospitalist Progress Note ---
Hospitalist: Subjective Interval history: [id number] -Citizen Of [place] female female with DVT of the legs and ileus. She still has diarrhea. He went for an EGD today. Exam - Constitutional Vitals: Period Temp Pulse Resp BP Sys/Cabrera Pulse Ox Last 24 Hr 97.0 F-98.5 F 60-88 16-20 137-167/59-95 96-100 Exam: General: No Acute Distress HEENT: Normocephalic, atraumatic, Extra ocular movements intact Neck: Supple, No JVD Chest: Clear to auscultation B/L CV: S1 + S2 audible without murmur, gallop or rub Abd: soft, NT, Non-distended, BS + Ext: Bilateral lower extremity swelling and edema, L > R Skin: No purpura, bruising or rash Rheumatologic: No Joint deformities Neurologic: Strength 5/5 all extremities, no gross sensory deficits Results - Labs CBC & BMP: 04/05/17 07:01 04/05/17 07:01 - Impressions Assessment and plan: Deep vein thrombosis (DVT) of left lower extremity Status: Acute Assessment and plan: Continue IV heparin. Switch to oral anticoagulants once ileus resolved. she does have IVC filter in place. Current Visit: Yes Ileus Status: Acute Assessment and plan: She has diarrhea, last KUB showed improvement in ileus , continue to follow serial KUBs. Current Visit: Yes Hypokalemia Status: Acute Assessment and plan: She is now on scheduled potassium, monitoring metabolic profile, thiis problem has improved Current Visit: Yes Acute kidney injury on chronic kidney disease 3 Status: Acute Assessment and plan: This was due to Bactrim. Creatinine improved and stable after holding Bactrim Current Visit: No Leukocytosis Status: Acute Current Visit: Yes Assessment and plan: She has significant leukocytosis on presentation, sepsis workup was negative. Leukocytosis has improved he does have some elevation of white count likely from the stress response, leukocytosis has improved Partial seizure disorder Status: Acute Assessment and plan: Stable on Tegretol 4 mg p.o. twice daily continue Current Visit: No Essential hypertension Status: Chronic Current Visit: No Assessment and plan: This was uncontrolled, I have adjusted her blood pressure medicines 04/04, continue to monitor blood pressure Discharge plan to home with physical therapy when ready
--- NOTE | 2017-04-05 16:49 | XRay Report ---
History: Ileus Date: 04/05/2017 Study: KUB Comparison exam: 04/04/2017 There is disproportionate small bowel distention, the same or increased compared to the previous day. There is a small amount of scattered air in the normal caliber colon. IVC filter is unchanged in position. Osseous structures are similar. Impression: Disproportionate small bowel distention, the same or slightly increased compared to the previous study. Some of this appearance could be related to insufflation of bowel from the earlier EGD. Recommend follow-up films to help exclude underlying partial small bowel obstruction. Colonic distention has improved over the last 2 days PROCEDURE INTERPRETED AT [facility] DEPARTMENT OF RADIOLOGY Final Report Signed by: Dr. Cherelle Gunter
--- NOTE | 2017-04-05 20:05 | CT Report ---
History: Abdominal discomfort. Prolonged ileus Date: 04/05/2017 Study: CT abdomen and pelvis without IV contrast Comparison exam: March 22, 2017 Technique: Spiral CT sections were obtained from the lung bases to the pubic symphysis following oral contrast and no IV contrast CT abdomen: There is minimal platelike scar or subsegmental atelectasis in the lung bases. There is no hui pneumonia in the lung bases. There is no gross pleural or pericardial effusion. The liver, spleen, pancreas, and adrenal glands are unremarkable. There is no abnormal biliary dilatation. There is some mild calcific density in the neck of the gallbladder, though no gallstones are seen on the previous CT scan. The kidneys are unchanged. There is no new renal mass. There is no hydronephrosis. There is no radiopaque renal stone. There is a rounded low-density which likely represents a cyst measuring 2.3 cm in the mid left kidney. IVC filter is in place without change from the previous study. This is at and slightly below the level of the renal veins. There is no aortic aneurysm. The appendix is normal. There is no evidence of gallstone ileus. There is some disproportionate small bowel dilatation of uncertain etiology. There is mild prominence of the wall of the transverse colon extending to the distal descending colon level. CT pelvis: There is no new pelvic mass or new pelvic fluid collection. There is extensive edema of the subcutaneous and deep fat of the left hip and left lower extremity in this patient with known DVT on the left. Impression: There is some mild diffuse prominence of the wall of the transverse and left colon, suggesting some potential nonspecific colitis. There is some increasing asymmetric small bowel distention compared to the previous CT scan There is no evidence of gallstone ileus Increased edema of the left hemipelvis and left upper thigh in this patient with known left-sided DVT There is some ill-defined increased calcific density in the region of the neck of the gallbladder. This could possibly represent interval vicarious excretion of contrast; no calcific density gallstone was noted in the gallbladder on the comparison CT scan. The CT exam was performed using one or more of the following dose reduction techniques: Automated exposure control, adjustment of the mA and/or kV according to patient size, or use of iterative reconstruction technique. PROCEDURE INTERPRETED AT [facility] DEPARTMENT OF RADIOLOGY Final Report Signed by: Dr. Cherelle Gunter
[2017-04-05] MEDS: ATORVASTATIN 10 MG TABLET PO SCH (21:05)
[2017-04-05] MEDS: ONDANSETRON 4 MG/2 ML VIAL IV PRN (22:40)
[2017-04-06] MEDS: POTASSIUM CHLORIDE 20 MEQ TABLET PO PRN ×4 (00:44→18:55)
[2017-04-06] MEDS: HEPARIN DRIP 25,000 UNITS/500 ML PREMIX IV SCH ×2 (02:58→09:28)
[2017-04-06 07:22] LABS: Calcium 8.6 MG/DL (8.5-10.1); Osmolality,Calculated 279.1 MOS/KG (273-304); Potassium 3.5 MMOL/L (3.5-5.1)
--- NOTE | 2017-04-06 08:41 | Gastrointestinal Progress Note ---
<Kimberly Plata Diana - Last Filed: 04/06/17 08:39> Assessment and Plan (1) Abdominal pain Status: Acute Assessment and plan: 04/06-abdominal pain improved, nausea and vomiting improved. EGD findings noted as below as well as CT findings on yesterday. Continue to monitor this time. Plan an addendum to followed by Dr. White. 04/04-no further abdominal pain. Having watery continuous stools. Stool studies negative. Episodes of nausea and vomiting over the weekend with eating. Electrolytes corrected. No overt bleeding and H&H stable. Repeat KUB and change back to clear liquid diet at this time. Physical therapy to continue to work with patient. Plan an addendum to followed by Dr. White. 04/01-abdominal pain improved. Semi-formed stool with no further nausea vomiting. Hypokalemia noted. Stool studies are pending. She is being held n.p.o. at this time for possible angioplasty/stenting today. Following potential procedure, may start clear liquids. Plan an addendum to follow by Dr. White. 03/31-onset yesterday of abdominal pain with nausea and vomiting. Protracted hospital stay with inability to get up and ambulate. Hypokalemia on yesterday repleted with repeat potassium pending. KUB with findings of dilated small and large bowel noted. Patient to get out of bed today with physical therapy. Discussed with patient placement of NG tube if symptoms persist to alleviate nausea/vomiting and abdominal pain. Patient declines this at this time however will order as needed. Multiple watery stools daily. Check stool studies. Plan an addendum to follow by Dr. White. Current Visit: Yes Gastroenterology - PN: Subj Interval history: CC: Abdominal pain, nausea vomiting Patient is seen awake alert sitting up in bed. States she did have a restful night last night and is feeling better today. She states she has had some nausea and vomiting but it is somewhat improved. She continues to have loose stools but denies any overt bleeding with this. Tolerating very small amounts of clear liquid diet. EGD on yesterday with no abnormal findings noted. She also had a CT of the abdomen on yesterday which showed mild diffuse prominence of the wall of the transverse and left colon suggesting nonspecific colitis, mild calcific density in the neck of the gallbladder without gallstones, just proportionate small bowel dilation. Abdomen is soft, nontender. ROS: Denies shortness of breath or chest pain Exam (Progress Note) - Constitutional Vitals: Period Temp Pulse Resp BP Sys/Cabrera Pulse Ox Last 24 Hr 97.5 F-98.9 F 57-88 16-19 137-167/59-95 96-100 General appearance: normal weight, no acute distress - Head Head exam: Present: normal inspection, normocephalic - Eye Eye exam: Present: other (Lids and conjunctive are unremarkable). Absent: scleral icterus - ENT ENT exam: Present: normal exam, normal oropharynx - Neck Neck exam: Present: normal inspection - Respiratory Respiratory exam: Present: clear to auscultation bilaterally. Absent: rales, rhonchi, wheezes - Cardiovascular Cardiovascular exam: Present: regular rate and rhythm. Absent: diastolic murmur , JVD, systolic murmur - GI/Abdominal GI/Abdominal exam: Present: normal bowel sounds, soft. Absent: ascites, distended, mass, tenderness - Extremities Exam Extremities exam: Present: normal inspection, full ROM - Back Exam Back exam: Present: normal inspection - Neurological Exam Neurological exam: Present: alert, oriented X3 - Psychiatric Psychiatric exam: Present: normal affect, normal mood - Skin Skin exam: Present: normal color, warm, dry Results - Labs CBC & BMP: 04/05/17 07:01 04/06/17 06:14 Lab Results: I have reviewed the past 24 hour labs - Diagnostic Findings Procedure: CT Abdomen and Pelvis: report reviewed by me <Alexis White - Last Filed: 04/06/17 20:01> Exam (Progress Note) - Constitutional Vitals: Period Temp Pulse Resp BP Sys/Cabrera Pulse Ox Last 24 Hr 97.8 F-98.9 F 60-70 16-20 140-155/64-74 96-100 Results - Labs CBC & BMP: 04/05/17 07:01 04/06/17 06:14
[2017-04-06] MEDS: carBAMazepine 200 MG TABLET PO SCH ×2 (09:26→21:13)
[2017-04-06] MEDS: ESCITALOPRAM 10 MG TABLET PO SCH (09:26)
[2017-04-06] MEDS: PANTOPRAZOLE 40 MG TABLET PO SCH ×2 (09:26→21:14)
[2017-04-06] MEDS: POTASSIUM CHLORIDE 20 MEQ TABLET PO SCH ×2 (09:26→21:13)
[2017-04-06] MEDS: TOPIRAMATE 25 MG TABLET PO SCH ×2 (09:26→21:13)
[2017-04-06] MEDS: CARVEDILOL 12.5 MG TABLET PO SCH ×2 (09:26→21:14)
[2017-04-06] MEDS: metroNIDAZOLE INJ 500 MG in PREMIX 1 EACH IV SCH ×2 (12:27→21:14)
[2017-04-06] MEDS: LEVOFLOXACIN INJ 500 MG in PREMIX 1 EACH IV SCH (14:26)
--- NOTE | 2017-04-06 16:30 | Hospitalist Progress Note ---
Hospitalist: Subjective Interval history: [age] female with history of DVT of the leg, ileus and colitis. She has less diarrhea today, nausea is better. Exam - Constitutional Vitals: Period Temp Pulse Resp BP Sys/Cabrera Pulse Ox Last 24 Hr 97.8 F-98.9 F 57-70 16-20 140-159/64-74 96-100 Exam: General: No Acute Distress HEENT: Normocephalic, atraumatic, Extra ocular movements intact Neck: Supple, No JVD Chest: Clear to auscultation B/L CV: S1 + S2 audible without murmur, gallop or rub Abd: soft, NT, Non-distended, BS + Ext: Bilateral lower extremity swelling and edema, L > R Skin: No purpura, bruising or rash Rheumatologic: No Joint deformities Neurologic: Strength 5/5 all extremities, no gross sensory deficits Results - Labs CBC & BMP: 04/05/17 07:01 04/06/17 06:14 - Impressions Assessment and plan: Deep vein thrombosis (DVT) of left lower extremity Status: Acute Assessment and plan: Continue IV heparin. Switch to oral anticoagulants once ileus resolved. she does have IVC filter in place. Current Visit: Yes Ileus Status: Acute Assessment and plan: She has diarrhea, last KUB showed improvement in ileus , continue to follow serial KUBs. Current Visit: Yes Colitis Status: Acute Assessment and plan: This was diagnosed with CT scan abdomen. She had started on Levaquin and Flagyl 04/06, will monitor for response Current Visit: Yes Hypokalemia Status: Acute Assessment and plan: She is now on scheduled potassium, monitoring metabolic profile, thiis problem has improved Current Visit: Yes Acute kidney injury on chronic kidney disease 3 Status: Acute Assessment and plan: This was due to Bactrim. Creatinine improved and stable after holding Bactrim Current Visit: No Leukocytosis Status: Acute Current Visit: Yes Assessment and plan: She has significant leukocytosis on presentation, sepsis workup was negative. Leukocytosis has improved he does have some elevation of white count likely from the stress response, leukocytosis has improved Partial seizure disorder Status: Acute Assessment and plan: Stable on Tegretol 4 mg p.o. twice daily continue Current Visit: No Essential hypertension Status: Chronic Current Visit: No Assessment and plan: This was uncontrolled, I have adjusted her blood pressure medicines 04/04, continue to monitor blood pressure Discharge plan to home with physical therapy when ready
[2017-04-06] MEDS: LACTOBACILLUS ACIDOPHILUS/BULGARICUS CAPLET PO SCH (17:23)
[2017-04-06] MEDS: ACETAMINOPHEN 325 MG TABLET PO PRN (21:13)
[2017-04-06] MEDS: ATORVASTATIN 10 MG TABLET PO SCH (21:14)
[2017-04-07] MEDS: HEPARIN DRIP 25,000 UNITS/500 ML PREMIX IV SCH ×3 (01:13→21:23)
[2017-04-07] MEDS: metroNIDAZOLE INJ 500 MG in PREMIX 1 EACH IV SCH ×3 (05:11→21:25)
[2017-04-07 07:06] LABS: Calcium 8.5 MG/DL (8.5-10.1); Osmolality,Calculated 280.1 MOS/KG (273-304); Potassium 3.9 MMOL/L (3.5-5.1)
[2017-04-07] MEDS: carBAMazepine 200 MG TABLET PO SCH ×2 (09:29→21:25)
[2017-04-07] MEDS: PANTOPRAZOLE 40 MG TABLET PO SCH ×2 (09:29→21:25)
[2017-04-07] MEDS: LACTOBACILLUS ACIDOPHILUS/BULGARICUS CAPLET PO SCH (09:30)
[2017-04-07] MEDS: ESCITALOPRAM 10 MG TABLET PO SCH (09:30)
[2017-04-07] MEDS: POTASSIUM CHLORIDE 20 MEQ TABLET PO SCH ×2 (09:30→21:24)
[2017-04-07] MEDS: TOPIRAMATE 25 MG TABLET PO SCH ×2 (09:31→21:25)
[2017-04-07] MEDS: CARVEDILOL 12.5 MG TABLET PO SCH ×2 (09:31→21:24)
--- NOTE | 2017-04-07 09:34 | XRay Report ---
XR KUB Indication: Ileus Comparison: 05 April 2017 Findings: No free fluid or free air seen. Prominent small bowel loops are present with similar appearance to previous exam. No abnormal calcifications are present. No other abnormality is identified. Impression: No evidence of significant change demonstrated PROCEDURE INTERPRETED AT [facility] DEPARTMENT OF RADIOLOGY Final Report Signed by: Dr. Andrae Dumas
[2017-04-07] MEDS: LEVOFLOXACIN INJ 500 MG in PREMIX 1 EACH IV SCH (12:13)
--- NOTE | 2017-04-07 16:29 | Hospitalist Progress Note ---
Hospitalist: Subjective Interval history: 36-year-old female with DVT of the leg and colitis. Exam - Constitutional Vitals: Period Temp Pulse Resp BP Sys/Cabrera Pulse Ox Last 24 Hr 97.9 F-99.4 F 60-99 16-22 110-146/54-74 96-100 Exam: General: No Acute Distress HEENT: Normocephalic, atraumatic, Extra ocular movements intact Neck: Supple, No JVD Chest: Clear to auscultation B/L CV: S1 + S2 audible without murmur, gallop or rub Abd: soft, NT, Non-distended, BS + Ext: Bilateral lower extremity swelling and edema, L > R Skin: No purpura, bruising or rash Rheumatologic: No Joint deformities Neurologic: Strength 5/5 all extremities, no gross sensory deficits Results - Labs CBC & BMP: 04/05/17 07:01 04/07/17 06:07 - Impressions Assessment and plan: Deep vein thrombosis (DVT) of left lower extremity Status: Acute Assessment and plan: Continue IV heparin. Switch to oral anticoagulants once ileus resolved. she does have IVC filter in place. Current Visit: Yes Ileus Status: Acute Assessment and plan: She has diarrhea, last KUB showed improvement in ileus , continue to follow serial KUBs. Current Visit: Yes Colitis Status: Acute Assessment and plan: This was diagnosed with CT scan abdomen. She had started on Levaquin and Flagyl 04/06, will monitor for response Current Visit: Yes Hypokalemia Status: Acute Assessment and plan: She is now on scheduled potassium, monitoring metabolic profile, thiis problem has improved Current Visit: Yes Acute kidney injury on chronic kidney disease 3 Status: Acute Assessment and plan: This was due to Bactrim. Creatinine improved and stable after holding Bactrim Current Visit: No Leukocytosis Status: Acute Current Visit: Yes Assessment and plan: She has significant leukocytosis on presentation, sepsis workup was negative. Leukocytosis has improved he does have some elevation of white count likely from the stress response, leukocytosis has improved Partial seizure disorder Status: Acute Assessment and plan: Stable on Tegretol 4 mg p.o. twice daily continue Current Visit: No Essential hypertension Status: Chronic Current Visit: No Assessment and plan: This was uncontrolled, I have adjusted her blood pressure medicines 04/04, continue to monitor blood pressure Discharge plan to home with physical therapy when ready
[2017-04-07] MEDS: ATORVASTATIN 10 MG TABLET PO SCH (21:24)
[2017-04-08 03:42] LABS: Calcium 8.1 MG/DL (8.5-10.1); Osmolality,Calculated 280.1 MOS/KG (273-304); Potassium 4.1 MMOL/L (3.5-5.1)
[2017-04-08] MEDS: metroNIDAZOLE INJ 500 MG in PREMIX 1 EACH IV SCH ×3 (05:53→21:03)
--- NOTE | 2017-04-08 08:48 | Gastrointestinal Progress Note ---
<MartínmiltonKimberly Diana - Last Filed: 04/08/17 08:45> Assessment and Plan (1) Abdominal pain Status: Acute Assessment and plan: 04/08-no complaints of abdominal pain present. No nausea vomiting. Tolerating diet. Continues to have loose stools. Advance to full liquid diet and monitor. Plan an addendum to follow Dr. White. 04/06-abdominal pain improved, nausea and vomiting improved. EGD findings noted as below as well as CT findings on yesterday. Continue to monitor this time. Plan an addendum to followed by Dr. White. 04/04-no further abdominal pain. Having watery continuous stools. Stool studies negative. Episodes of nausea and vomiting over the weekend with eating. Electrolytes corrected. No overt bleeding and H&H stable. Repeat KUB and change back to clear liquid diet at this time. Physical therapy to continue to work with patient. Plan an addendum to followed by Dr. White. 04/01-abdominal pain improved. Semi-formed stool with no further nausea vomiting. Hypokalemia noted. Stool studies are pending. She is being held n.p.o. at this time for possible angioplasty/stenting today. Following potential procedure, may start clear liquids. Plan an addendum to follow by Dr. White. 03/31-onset yesterday of abdominal pain with nausea and vomiting. Protracted hospital stay with inability to get up and ambulate. Hypokalemia on yesterday repleted with repeat potassium pending. KUB with findings of dilated small and large bowel noted. Patient to get out of bed today with physical therapy. Discussed with patient placement of NG tube if symptoms persist to alleviate nausea/vomiting and abdominal pain. Patient declines this at this time however will order as needed. Multiple watery stools daily. Check stool studies. Plan an addendum to follow by Dr. White. Current Visit: Yes Gastroenterology - PN: Subj Interval history: Cc: Ileus Patient is seen awake and alert lying in bed. States she is not feeling well today. States she sat up in the chair for a good while yesterday and her leg began to swell more. She states that she continues to have diarrhea with 2 loose stools last night she denies any overt bleeding with this. She is denying any nausea or vomiting and continues to tolerate a clear liquid diet at present time she feels like she could possibly increase this to full liquids. Abdomen is soft, nontender. She states she is passing flatus. No electrolyte imbalances noted at this time. ROS: Denies shortness breath or chest pain Exam (Progress Note) - Constitutional Vitals: Period Temp Pulse Resp BP Sys/Cabrera Pulse Ox Last 24 Hr 97.4 F-99.4 F 63-99 16-22 123-163/65-75 96-98 General appearance: normal weight, no acute distress - Head Head exam: Present: normal inspection, normocephalic - Eye Eye exam: Present: other (Lids and conjunctive are unremarkable). Absent: scleral icterus - ENT ENT exam: Present: normal exam, normal oropharynx - Neck Neck exam: Present: normal inspection - Respiratory Respiratory exam: Present: clear to auscultation bilaterally. Absent: rales, rhonchi, wheezes - Cardiovascular Cardiovascular exam: Present: regular rate and rhythm. Absent: diastolic murmur , JVD, systolic murmur - GI/Abdominal GI/Abdominal exam: Present: normal bowel sounds, soft. Absent: ascites, distended, mass, organomegaly, tenderness - Extremities Exam Extremities exam: Present: normal inspection, full ROM - Back Exam Back exam: Present: normal inspection - Neurological Exam Neurological exam: Present: alert, oriented X3 - Psychiatric Psychiatric exam: Present: normal affect, normal mood - Skin Skin exam: Present: normal color, warm, dry Results - Labs CBC & BMP: 04/05/17 07:01 04/08/17 02:29 Lab Results: I have reviewed the past 24 hour labs <Alexis White - Last Filed: 04/08/17 16:24> Exam (Progress Note) - Constitutional Vitals: Period Temp Pulse Resp BP Sys/Cabrera Pulse Ox Last 24 Hr 97.4 F-98.5 F 63-71 18-22 117-163/61-75 97-98 Results - Labs CBC & BMP: 04/05/17 07:01 04/08/17 02:29
[2017-04-08] MEDS: POTASSIUM CHLORIDE 20 MEQ TABLET PO SCH ×2 (09:59→20:59)
[2017-04-08] MEDS: PANTOPRAZOLE 40 MG TABLET PO SCH ×2 (09:59→20:59)
[2017-04-08] MEDS: carBAMazepine 200 MG TABLET PO SCH ×2 (10:00→20:59)
[2017-04-08] MEDS: TOPIRAMATE 25 MG TABLET PO SCH ×2 (10:00→21:00)
[2017-04-08] MEDS: ESCITALOPRAM 10 MG TABLET PO SCH (10:00)
[2017-04-08] MEDS: LACTOBACILLUS ACIDOPHILUS/BULGARICUS CAPLET PO SCH (10:00)
[2017-04-08] MEDS: CARVEDILOL 12.5 MG TABLET PO SCH ×2 (10:00→20:59)
[2017-04-08] MEDS: LEVOFLOXACIN INJ 500 MG in PREMIX 1 EACH IV SCH (11:23)
[2017-04-08] MEDS: HEPARIN DRIP 25,000 UNITS/500 ML PREMIX IV SCH (15:14)
--- NOTE | 2017-04-08 15:34 | Hospitalist Progress Note ---
Hospitalist: Subjective Interval history: Patient has mild abdominal discomfort and mild nausea, still has diarrhea. She is in the hospital for ileus colitis and treatment of DVT of the leg. Exam - Constitutional Vitals: Period Temp Pulse Resp BP Sys/Cabrera Pulse Ox Last 24 Hr 97.4 F-98.5 F 63-71 18-22 117-163/61-75 97-98 Exam: General: No Acute Distress HEENT: Normocephalic, atraumatic, Extra ocular movements intact Neck: Supple, No JVD Chest: Clear to auscultation B/L CV: S1 + S2 audible without murmur, gallop or rub Abd: soft, NT, Non-distended, BS + Ext: Bilateral lower extremity swelling and edema, L > R Skin: No purpura, bruising or rash Rheumatologic: No Joint deformities Neurologic: Strength 5/5 all extremities, no gross sensory deficits Results - Labs CBC & BMP: 04/05/17 07:01 04/08/17 02:29 - Impressions Assessment and plan: Deep vein thrombosis (DVT) of left lower extremity Status: Acute Assessment and plan: Continue IV heparin. Switch to oral Eliquis once ileus has resolved. she does have IVC filter in place. Current Visit: Yes Ileus Status: Acute Assessment and plan: She has diarrhea, last KUB showed improvement in ileus , continue to follow serial KUBs. Current Visit: Yes Colitis Status: Acute Assessment and plan: This was diagnosed with CT scan abdomen. She had started on Levaquin and Flagyl 04/06, will monitor for response Current Visit: Yes Hypokalemia Status: Acute Assessment and plan: She is now on scheduled potassium, monitoring metabolic profile, thiis problem has improved Current Visit: Yes Acute kidney injury on chronic kidney disease 3 Status: Acute Assessment and plan: This was due to Bactrim. Creatinine improved and stable after holding Bactrim Current Visit: No Leukocytosis Status: Acute Current Visit: Yes Assessment and plan: She has significant leukocytosis on presentation, sepsis workup was negative. Leukocytosis has improved he does have some elevation of white count likely from the stress response, leukocytosis has improved Partial seizure disorder Status: Acute Assessment and plan: Stable on Tegretol 4 mg p.o. twice daily continue Current Visit: No Essential hypertension Status: Chronic Current Visit: No Assessment and plan: This was uncontrolled, I have adjusted her blood pressure medicines 04/04, continue to monitor blood pressure Discharge plan to home with physical therapy when ready
[2017-04-08] MEDS: ATORVASTATIN 10 MG TABLET PO SCH (21:00)
[2017-04-09] MEDS: metroNIDAZOLE INJ 500 MG in PREMIX 1 EACH IV SCH ×3 (06:18→21:49)
[2017-04-09] MEDS: LACTOBACILLUS ACIDOPHILUS/BULGARICUS CAPLET PO SCH (09:02)
[2017-04-09] MEDS: POTASSIUM CHLORIDE 20 MEQ TABLET PO SCH ×2 (09:02→20:25)
[2017-04-09] MEDS: TOPIRAMATE 25 MG TABLET PO SCH ×2 (09:03→20:26)
[2017-04-09] MEDS: CARVEDILOL 12.5 MG TABLET PO SCH ×2 (09:03→20:26)
[2017-04-09] MEDS: carBAMazepine 200 MG TABLET PO SCH ×2 (09:03→20:25)
[2017-04-09] MEDS: ESCITALOPRAM 10 MG TABLET PO SCH (09:03)
[2017-04-09] MEDS: PANTOPRAZOLE 40 MG TABLET PO SCH ×2 (09:04→20:26)
[2017-04-09] MEDS: LEVOFLOXACIN INJ 500 MG in PREMIX 1 EACH IV SCH (10:41)
[2017-04-09] MEDS: APIXABAN 5 MG TABLET PO SCH ×2 (12:45→20:25)
[2017-04-09] MEDS: ONDANSETRON 4 MG/2 ML VIAL IV PRN (12:49)
--- NOTE | 2017-04-09 13:55 | Hospitalist Progress Note ---
Assessment and Plan (1) Narcosis Status: Acute Assessment and plan: No longer an issue---- resolved Current Visit: Yes (2) Neutrophilic leukemoid reaction Status: Acute Assessment and plan: Resolved Current Visit: Yes (3) Intractable seizure disorder Status: Chronic Assessment and plan: Resolved Current Visit: No (4) Deep vein thrombosis (DVT) of left lower extremity Status: Acute Assessment and plan: Patient has been on heparin until this is unsure when her changing her to Eliquis 5 mg p.o. twice a day. For the patient's clinical condition. Current Visit: Yes Hospitalist: Subjective Interval history: Patient has been seen interviewed and examined and chart has been reviewed admitted to the hospital quite a while ago with the colitis acute on chronic kidney injury and a DVT in the left lower extremity. She is able to eat now. Leg swelling is less. Plan has been to start her on a DOAC(eliquis). She states she is able to eat she is having bowel movements. Patient should be started on this medication. Creatinine is 1.4, estimated GFR 59 mL/min and is stabilized. She will be started on 5 mg twice a day, starting this lunch hour. Patient to be reassessed tomorrow. Exam - Constitutional Vitals: Period Temp Pulse Resp BP Sys/Cabrera Pulse Ox Last 24 Hr 97.5 F-98.5 F 60-113 16-20 129-169/55-76 95-100 General appearance: morbidly obese - Head Head exam: Present: normocephalic, atraumatic - Eye Eye exam: Present: EOMI Pupils: Present: NGA - ENT ENT exam: Present: normal exam - Neck Neck exam: Present: normal inspection - Respiratory Respiratory exam: Present: clear to auscultation bilaterally - Cardiovascular Cardiovascular exam: Present: regular rate and rhythm - GI/Abdominal GI/Abdominal exam: Present: normal bowel sounds, soft - Extremities Exam Extremities exam: Present: other (Noted edema to the left lower extremity. Patient has generalized weakness and deconditioning but can move all extremities ) - Neurological Exam Neurological exam: Present: alert, oriented X3, CN II-XII intact - Psychiatric Psychiatric exam: Present: normal affect, normal mood - Skin Skin exam: Present: normal color, warm Results - Labs CBC & BMP: 04/05/17 07:01 04/08/17 02:29 Lab Results: I have reviewed the past 24 hour labs
[2017-04-09] MEDS: ATORVASTATIN 10 MG TABLET PO SCH (20:26)
[2017-04-10] MEDS: ONDANSETRON 4 MG/2 ML VIAL IV PRN ×2 (04:02→13:27)
[2017-04-10] MEDS: metroNIDAZOLE INJ 500 MG in PREMIX 1 EACH IV SCH ×3 (05:14→21:53)
[2017-04-10] MEDS: APIXABAN 5 MG TABLET PO SCH ×2 (09:06→21:47)
[2017-04-10] MEDS: LACTOBACILLUS ACIDOPHILUS/BULGARICUS CAPLET PO SCH (09:06)
[2017-04-10] MEDS: POTASSIUM CHLORIDE 20 MEQ TABLET PO SCH ×2 (09:06→21:48)
[2017-04-10] MEDS: ESCITALOPRAM 10 MG TABLET PO SCH (09:06)
[2017-04-10] MEDS: CARVEDILOL 12.5 MG TABLET PO SCH ×2 (09:07→21:47)
[2017-04-10] MEDS: carBAMazepine 200 MG TABLET PO SCH ×2 (09:07→21:47)
[2017-04-10] MEDS: PANTOPRAZOLE 40 MG TABLET PO SCH ×2 (09:07→21:47)
[2017-04-10] MEDS: TOPIRAMATE 25 MG TABLET PO SCH ×2 (09:07→21:47)
[2017-04-10] MEDS: LEVOFLOXACIN INJ 500 MG in PREMIX 1 EACH IV SCH (10:35)
--- NOTE | 2017-04-10 11:35 | Hospitalist Progress Note ---
Assessment and Plan (1) Narcosis Status: Acute Assessment and plan: No longer an issue---- resolved Current Visit: Yes (2) Neutrophilic leukemoid reaction Status: Acute Assessment and plan: Resolved Current Visit: Yes (3) Intractable seizure disorder Status: Chronic Assessment and plan: Resolved Current Visit: No (4) Deep vein thrombosis (DVT) of left lower extremity Status: Acute Assessment and plan: Started on Eliquis yesterday and tolerating it. There is no increase or return of symptoms. No shortness of breath. As long was created was 1.4 dose of five- point milligrams twice a day will continue. Food and get her out of here in the coming few days. She will need home health when she gets discharged. Of also instructed the floor to have legs measured at the cuff on that the thigh serially. Current Visit: Yes Hospitalist: Subjective Interval history: Patient has been seen interviewed and examined chart has been reviewed. Started on Eliquis yesterday 5 mg twice a day. Her creatinine is 1.4. Estimated GFR 58 mL/min. She is very happy now that she is a senior light at the end of the tunnel according to her words that she may be able to get out of here. He has been on telemetry and she is in normal sinus rhythm without any events. She should have telemetry discontinued. Exam - Constitutional Vitals: Period Temp Pulse Resp BP Sys/Cabrera Pulse Ox Last 24 Hr 97.7 F-98.5 F 62-78 16-20 111-143/58-79 93-100 General appearance: morbidly obese - Head Head exam: Present: normocephalic, atraumatic - Eye Eye exam: Present: EOMI Pupils: Present: NGA - ENT ENT exam: Present: normal exam - Respiratory Respiratory exam: Present: clear to auscultation bilaterally - Cardiovascular Cardiovascular exam: Present: regular rate and rhythm - GI/Abdominal GI/Abdominal exam: Present: normal bowel sounds, soft - Extremities Exam Extremities exam: Present: calf tenderness - Back Exam Back exam: Present: normal inspection - Neurological Exam Neurological exam: Present: alert, oriented X3, CN II-XII intact - Psychiatric Psychiatric exam: Present: normal affect, normal mood - Skin Skin exam: Present: normal color, warm, other (Left lower extremity edema) Results - Labs CBC & BMP: 04/05/17 07:01 04/08/17 02:29 Lab Results: I have reviewed the past 24 hour labs
[2017-04-10] MEDS: ATORVASTATIN 10 MG TABLET PO SCH (21:47)
[2017-04-11] MEDS: metroNIDAZOLE INJ 500 MG in PREMIX 1 EACH IV SCH ×2 (06:11→15:54)
[2017-04-11] MEDS: ACETAMINOPHEN 325 MG TABLET PO PRN (09:47)
[2017-04-11] MEDS: carBAMazepine 200 MG TABLET PO SCH (09:47)
[2017-04-11] MEDS: POTASSIUM CHLORIDE 20 MEQ TABLET PO SCH (09:48)
[2017-04-11] MEDS: TOPIRAMATE 25 MG TABLET PO SCH (09:49)
[2017-04-11] MEDS: LACTOBACILLUS ACIDOPHILUS/BULGARICUS CAPLET PO SCH (09:49)
[2017-04-11] MEDS: ESCITALOPRAM 10 MG TABLET PO SCH (09:49)
[2017-04-11] MEDS: CARVEDILOL 12.5 MG TABLET PO SCH (09:49)
[2017-04-11] MEDS: APIXABAN 5 MG TABLET PO SCH (09:49)
[2017-04-11] MEDS: PANTOPRAZOLE 40 MG TABLET PO SCH (10:31)
--- NOTE | 2017-04-11 11:43 | Discharge Summary ---
Hospital Course - Hospital Course Hospital Course: This is a chronically ill 56-year-old female that presented to the ED at [facility] on the morning of March 21, 2017 for the evaluation of bilateral lower extremity numbness. The patient has a medical history significant for depression, hypertension, anxiety, hypothyroidism, rheumatoid arthritis, anemia, and deep vein thrombosis. The patient reported a surgical history only significant for tubal ligation. The patient reported the onset of symptoms the night prior to presentation. She reported feelings of "heaviness" affecting her bilateral lower extremities. In addition, she reported a possible change in size in her lower extremities with the left extremity larger than the right one. The patient also reported changes in temperature involving her bilateral lower extremities. She reported a recent hospitalization in February, in which she was subsequently diagnosed with a deep vein thrombosis with subsequent inferior vena cava placement. During that clinical encounter, the patient was not placed on any anticoagulation agents due to the presence of a gastrointestinal bleed. She noticed that the symptoms that she was experiencing on the night of presentation were similar in nature to the symptoms from the previous hospitalization prompting her to present to the ED for further evaluation. The patient was evaluated at the time of ED presentation. Labs were obtained which were significant for white blood cell count 12.9, hemoglobin 9.0, hematocrit 25.5, platelet count 127, carbon dioxide 20, BUN 25, creatinine 2.00 , and glucose at 169. Bilateral venous Doppler studies were significant for progressive occluding deep vein thrombosis involving the veins of the left lower extremity. The patient was subsequently admitted to the hospitalist service for continuation of care. Intravenous anticoagulation was initiated at the time of admission. Neurology, vascular surgery, nephrology, and gastroenterology consultations were requested in which the patient was seen and recommendations were given. The patient's condition slowly improved. The patient's condition is stable. 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 Diagnosis - Discharge Diagnosis (1) Narcosis Status: Acute (2) Neutrophilic leukemoid reaction Status: Acute (3) Intractable seizure disorder Status: Chronic (4) Deep vein thrombosis (DVT) of left lower extremity Status: Acute Discharge Plan - Discharge Data Disposition: Home Health Service Condition at Discharge: Stable Discharge Diet: heart healthy Activity: increase activity as tolerated Weight Bearing at Discharge: weight bear as tolerated Contact your physician if you experience:: fever over 101, Shortness of breath, Bleeding - Discharge Medications New Carvedilol [Coreg] 12.5 mg PO BID #60 tablet NIFEdipine XL TAB [Procardia Xl] 90 mg PO DAILY #30 tablet Apixaban [Eliquis] 5 mg PO BID #60 tablet Hydrocortisone (Anusol-Hc) Sup [Anusol HC Supp] 25 mg RECTAL BID PRN #60 supp PRN Reason: Hemorrhoids Continue Atorvastatin [Lipitor] 10 mg PO BEDTIME Tramadol HCl [Tramadol Tab] 50 mg PO Q6H PRN PRN Reason: Pain Tizanidine HCl 4 mg PO Q8H PRN PRN Reason: Muscle Spasm Sulfameth/Trimeth 800-160 Tab [Bactrim DS Tab] 1 tablet PO BID #14 tablet traZODone [Desyrel] 50 mg PO BEDTIME Escitalopram [Lexapro] 20 mg PO DAILY NIFEdipine XL TAB [Procardia Xl] 60 mg PO DAILY Topiramate 50 mg PO BID carBAMazepine [Carbatrol] 200 mg PO BID amLODIPine [Norvasc] 5 mg PO DAILY #30 tablet HYDROcodone/ACETAMIN 5-325 [[place] 5-325] 1 tablet PO Q4H #20 tablet Pantoprazole Tab [Protonix Tab] 40 mg PO DAILY #30 tablet Discontinued Albuterol Inhaler [Proventil Inhaler] 2 puff INH Q4H PRN #1 inhaler PRN Reason: Shortness Of Breath/Wheezing - Follow Up or Referral - Forms/Instructions Exam - Constitutional Vitals: Period Temp Pulse Resp BP Sys/Cabrera Pulse Ox Last 24 Hr 97.5 F-98.7 F 68-72 7-98 104-148/57-82 97-100 General appearance: morbidly obese - Head Head exam: Present: normocephalic, atraumatic - Eye Eye exam: Present: EOMI Pupils: Present: NGA - ENT ENT exam: Present: normal exam - Neck Neck exam: Present: normal inspection - Respiratory Respiratory exam: Present: clear to auscultation bilaterally (No respiratory distress) - Cardiovascular Cardiovascular exam: Present: regular rate and rhythm - GI/Abdominal GI/Abdominal exam: Present: normal bowel sounds, soft - Extremities Exam Extremities exam: Present: other (Good mobility and weightbearing however does complain of some discomfort in his left lower extremity which is still with some edema. No phlegmasia history of DVT on Eliquis) - Neurological Exam Neurological exam: Present: alert, oriented X3, CN II-XII intact, other (B going home) - Psychiatric Psychiatric exam: Present: normal affect, normal mood - Skin Skin exam: Present: normal color, warm, dry, other (Residual edema of the left lower extremities still there) Discharge Results Procedures and tests throughout hospitalization: Pending Orders 04/01/17 04:54 Occult Blood, Stool Routine DS: Provider Date of admission: 03/21/17 05:58 Primary care physician: . No PCP Attending physician on admission: Jose Gudino MD Consults: 03/21/17 12:28 Consult to Physician [CONS] Routine Comment: requiring DVT's Consulting Provider: Jonathan Figueredo Person Notified: Teena Vyas Date Notified: 03/21/17 Time Notified: 14:50 03/21/17 12:30 Consult to Physician [CONS] Routine Comment: Consulting Provider: Alexis White Person Notified: Kimberly Plata Date Notified: 03/21/17 Time Notified: 14:47 03/22/17 08:53 Consult to Physician [CONS] Routine Comment: evaluate for directed thrombolysis Consulting Provider: Adriel Gomez Person Notified: MD ADLER Date Notified: 03/22/17 Time Notified: 11:23 03/23/17 08:33 Consult to Physician [CONS] Routine Comment: Acute Renal Failure Consulting Provider: Guru River Consult to Specialist Group: Nephrology When should Consulting Provider be notified: Now Person Notified: Shanthi Date Notified: 03/23/17 Time Notified: 09:07 03/23/17 17:23 Consult to Physician [CONS] Routine Comment: breakthrough seizure Consulting Provider: Devonte Carballo Consulting Provider Notified: No When should Consulting Provider be notified: In am Person Notified: lenin Date Notified: 03/24/17 Time Notified: 09:12 03/25/17 14:35 Consult to Pharmacy [CONS] Routine Reason for Pharmacy Consult: Dose/Manage Vancomycin 03/29/17 08:51 Consult to Physician [CONS] Routine Comment: Please evaluate for extensive DVT leg Consulting Provider: Cherelle Gunter When should Consulting Provider be notified: Now Person Notified: Halina Date Notified: 03/29/17 Time Notified: 10:26 03/30/17 11:50 Consult to Case Mgmt/Social Srvs [CONS] Routine Reason for Case Mgmt/Social Srvs: Swingbed/SNF/Long-Term Consult Comment: Please evaluate for swing bed placement 03/30/17 11:54 Consult to Case Mgmt/Social Srvs [CONS] Routine Reason for Case Mgmt/Social Srvs: Other Consult Comment: Preapproval for Eliquis from patient's insurance 03/30/17 13:56 Consult to Occupational Therapy [CONS] Routine Reason for Occupational Therapy: Evaluate and Treat Consult to Physical Therapy [CONS] Routine Reason for Physical Therapy: Evaluate and Treat 03/30/17 17:21 Consult to Physician [CONS] Routine Comment: Consult for abdominal pain and ileus Consulting Provider: Alexis White When should Consulting Provider be notified: In am When should Consulting Provider be notified: In am Person Notified: CHUCKY Plata Date Notified: 03/31/17 Time Notified: 08:32 04/10/17 10:43 Consult to Case Mgmt/Social Srvs [CONS] Routine Reason for Case Mgmt/Social Srvs: Home Health Consult Comment: with PT 04/11/17 11:00 Consult to Case Mgmt/Social Srvs [CONS] Routine Reason for Case Mgmt/Social Srvs: Home Health Consult Comment: also give Eliquis card at discharge Discharging clinician: Sushant Chawla MD
[2017-04-11] MEDS: LEVOFLOXACIN INJ 500 MG in PREMIX 1 EACH IV SCH (12:15)
[2017-04-11 15:49] VITALS: BP 144/80
== END 2017-04-11 16:10 | disposition home health service (06) | DRG 300 ==
LOC: N.ED 03:38 → N.EDINP 05:57 → SUATTDRO 05:58 → N.EDINP 13:02 → N.5E 13:26
PROVIDERS: ADMIT Internal Medicine; ATTEND Internal Medicine Infectious Disease

== ENCOUNTER 2020-09-16 21:32 | Observation (INO) ==
[2020-09-16 21:50] LABS: Basophils % 0.2 % (0.0-0.8); Eosinophils % 0.1 % (0.00-10.9); Hematocrit 31.6 VOL% (35.7-47.0); Hemoglobin 10.2 GM/DL (12.0-16.0); Immature Granulocytes % 0.5 %; Immature Granulocytes Absolute 0.05 #; Lymphocytes # 2.9 10*3/uL (1.4-4.0); Mean Corpuscular HGB Conc 32.3 GM/DL (32-36); Mean Corpuscular Volume 93.2 FL (87-102); Mean Platelet Volume 11.1 FL (9.6-12.0); Neutrophils % 59.2 % (38.7-73.9); Platelet Count 253 T/CUMM (130-400); Red Blood Count 3.39 MC/CUMM (3.8-5.5); Red Cell Distribution Width 14.6 % (9.3-17.3); White Blood Count 10.4 T/CUMM (4-12)
[2020-09-16 22:21] LABS: Alanine Aminotransferase 17 U/L (13-56); Albumin 3.6 G/DL (3.4-5.0); Alkaline Phosphatase 93 U/L (45-117); Aspartate Amino Transferase 14 U/L (0-37); Bilirubin,Total < 0.39 MG/DL (0.2-1.0); Blood Urea Nitrogen 28 MG/DL (7-18); Carbon Dioxide 25 MMOL/L (21-32); Estimated Glom Filtration Rate 32 ML/MIN; Glucose 94 MG/DL (74-106); Osmolality,Calculated 282.5 MOS/KG (273-304); Potassium 4.7 MMOL/L (3.5-5.1); Sodium 139 MMOL/L (136-145); Total Protein 8.1 G/DL (6.4-8.3)
[2020-09-16] MEDS ORDERED: LABETALOL 100 MG/20 ML VIAL IV STA (22:51)
[2020-09-16 23:19] LABS: PT Patient Result 10.5 SECS (9.8-11.9); Partial Thromboplastin Time 27.5 SECS (23.9-33.8)
[2020-09-17] MEDS ORDERED: GLUCAGON 1 MG VIAL IM PRN (01:39)
[2020-09-17] MEDS ORDERED: DEXTROSE 50% 25 GM/50 ML VIAL IV PRN (01:39)
[2020-09-17] MEDS ORDERED: ACETAMINOPHEN 325 MG TABLET PO PRN (01:39)
[2020-09-17] MEDS ORDERED: ONDANSETRON 4 MG/2 ML VIAL IV PRN (01:39)
[2020-09-17] MEDS ORDERED: LABETALOL 100 MG/20 ML VIAL IV STA (03:45)
[2020-09-17] MEDS ORDERED: LABETALOL 20 MG/4 ML SYRINGE IV PRN ×2 (04:30→04:44)
[2020-09-17] MEDS ORDERED: NITROGLYCERIN 2% OINT 1 INCH/GM PACK TOP SCH (06:00)
[2020-09-17 06:44] LABS: Basophils % 0.1 % (0.0-0.8); Eosinophils % 0.1 % (0.00-10.9); Hematocrit 29.4 VOL% (35.7-47.0); Hemoglobin 9.6 GM/DL (12.0-16.0); Immature Granulocytes % 0.7 %; Immature Granulocytes Absolute 0.07 #; Lymphocytes # 2.9 10*3/uL (1.4-4.0); Mean Corpuscular HGB Conc 32.7 GM/DL (32-36); Mean Corpuscular Volume 92.7 FL (87-102); Mean Platelet Volume 11.6 FL (9.6-12.0); Monocytes % 10.9 % (1.7-12.7); Neutrophils % 59.2 % (38.7-73.9); Platelet Count 210 T/CUMM (130-400); Red Blood Count 3.17 MC/CUMM (3.8-5.5); Red Cell Distribution Width 14.7 % (9.3-17.3)
[2020-09-17 07:09] LABS: Hypochromasia 1+; Microcytosis 1+; Platelet Estimate Adequate
[2020-09-17 07:44] LABS: Risk Ratio 2.97; VLDL CHOLESTEROL 43.6 MG/DL
[2020-09-17] MEDS ORDERED: ENOXAPARIN 40 MG/0.4 ML SYRINGE SUBCUT SCH (08:00)
[2020-09-17 08:11] LABS: Alanine Aminotransferase 16 U/L (13-56); Albumin 3.3 G/DL (3.4-5.0); Alkaline Phosphatase 84 U/L (45-117); Aspartate Amino Transferase 12 U/L (0-37); Bilirubin,Total < 0.39 MG/DL (0.2-1.0); Blood Urea Nitrogen 30 MG/DL (7-18); Calcium 8.8 MG/DL (8.5-10.1); Carbon Dioxide 23 MMOL/L (21-32); Estimated Glom Filtration Rate 38 ML/MIN; Glucose 99 MG/DL (74-106); Potassium 4.7 MMOL/L (3.5-5.1); Sodium 143 MMOL/L (136-145); Total Protein 7.4 G/DL (6.4-8.3)
[2020-09-17] MEDS ORDERED: APIXABAN 5 MG TABLET PO SCH (09:00)
[2020-09-17] MEDS ORDERED: carvediloL 12.5 MG TABLET PO SCH (09:00)
[2020-09-17] MEDS ORDERED: ASPIRIN EC 325 MG TABLET PO SCH (09:00)
[2020-09-17] MEDS ORDERED: PANTOPRAZOLE 40 MG TABLET PO SCH (09:00)
[2020-09-17 10:12] VITALS: BP 164/78
[2020-09-17] MEDS ORDERED: ATORVASTATIN 40 MG TABLET PO SCH (21:00)
== END 2020-09-17 10:06 | disposition home or self-care (01) ==
LOC: N.ED 21:32 → N.EDINP 21:32
PROVIDERS: ADMIT Internal Medicine; ATTEND Internal Medicine